=== PATIENT | female | born 1970 | race Caucasian/White ===

== ENCOUNTER 2017-02-10 10:47 | Observation (INO) | payer OTHER ==
[2017-02-10] MEDS ORDERED: LORazepam 2 MG/ML SYRINGE IV PRN ×2 (11:09)
[2017-02-10] MEDS ORDERED: NALOXONE 0.4 MG/ML 1 ML VIAL IV PRN (11:15)
[2017-02-10] MEDS ORDERED: ONDANSETRON 4 MG/2 ML VIAL IVP PRN (11:15)
--- NOTE | 2017-02-10 11:15 | ED ---
General Adult HPI - General Chief complaint: Alcohol Stated complaint: SENT BY FOR DETOX Time Seen by Provider: 02/10/17 11:00 Source: patient, RN notes reviewed Mode of arrival: ambulatory Limitations: no limitations - History of Present Illness Initial comments: Chief complaint history of present illness a 47-year-old female who is coming emergency room because of chronic alcoholism. Patient reports when she stops drinking she has alcohol withdrawal problems. She's never had a seizure though. Patient drank some beer this morning. - Related Data Home Medications Medication Instructions Recorded Confirmed Atenolol/Chlorthalidone 1 tab PO DAILY 07/03/16 02/10/17 [Atenolol-Chlorthalidone 50-25] diphenhydrAMINE [Benadryl] 25 mg PO HS PRN 07/03/16 02/10/17 Allergies Allergy/AdvReac Type Severity Reaction Status Date / Time Sulfa (Sulfonamide Allergy Rash/Hives Verified 02/10/17 10:58 Antibiotics) Review of Systems ROS Statement: Those systems with pertinent positive or pertinent negative responses have been documented in the HPI. Review of systems patient denies any headache or visual acuity changes no neck pain no chest pain or shortness of breath no GI/ proms. The patient did drink some beer this morning. No neuro deficits. Past medical problems significant for hyperlipidemia and hypertension. Patient' s surgeries include tubal ligation and uterine ablation and NovaSure insertion. Family history mother on several uncles are all alcoholics. Patient's ALLERGIES include sulfa. She is a smoker strongly encouraged to stop. ROS Other: All systems not noted in ROS Statement are negative. Past Medical History Past Medical History: Hyperlipidemia, Hypertension History of Any Multi-Drug Resistant Organisms: None Reported Past Surgical History: Tubal Ligation, Uterine Ablation Additional Past Surgical History / Comment(s): gabriel nguyễn Past Psychological History: No Psychological Hx Reported Smoking Status: Never smoker Past Alcohol Use History: Abuse, Daily Past Drug Use History: None Reported General Exam - General Exam Comments Initial Comments: General: The patient is awake and alert, upset and distressed because of her alcohol dependency. Patient states when she stops drinking she does have withdrawal symptoms. Patient denies suicidal or homicidal thoughts. Vital signs temp 97.8 pulse 81 respiratory rate 18 pulse ox 99% room air blood pressure 164/103. Elevated systolic diastolic noted. The patient will be treated for alcohol withdrawal. Eye: Pupils are equal, round and reactive to light, extra-ocular movements are intact ; there is normal conjunctiva bilaterally. No signs of icterus. Ears, nose, mouth and throat: There are moist mucous membranes and no oral lesions. Neck: The neck is supple, there is no tenderness , no anterior cervical lymphadenopathy. Rapidly clearing neck rash, dermatitis nonspecific. Cardiovascular: There is a regular rate and rhythm. No murmur, rub or gallop is appreciated. Respiratory: Lungs are clear to auscultation, respirations are non-labored, breath sounds are equal. No wheezes, stridor, rales, or rhonchi. Gastrointestinal: Soft, non-distended, non-tender abdomen without masses or organomegaly noted. There is no rebound or guarding present. No CVA tenderness. Bowel sounds are unremarkable. Back: There is no tenderness to palpation in the midline. There is no obvious deformity. Rapidly clearing rash on the right side of her neck. Musculoskeletal: Normal ROM, no tenderness, There is no pedal edema. There is no calf tenderness or swelling. Sensation intact. Pulses equal bilaterally 2+. Neurological: CN II-XII intact, There are no obvious motor or sensory deficits. Coordination appears grossly intact. Speech is normal. No neuro deficits no focal or lateralizing findings. Skin: Skin is warm and dry and no rashes or lesions are noted. Psychiatric: Cooperative, appropriate mood & affect, normal judgment. Patient states alcoholic and wants help getting off the alcohol. Has alcohol withdrawal symptoms when she stops drinking. Limitations: no limitations Course Vital Signs 02/10/17 10:53 Temperature 97.8 F Pulse Rate 81 Respiratory 18 Rate Blood Pressure 164/103 O2 Sat by Pulse 99 Oximetry Medical Decision Making - Medical Decision Making The patient be started on banana bag and Ativan protocol for alcohol withdrawal. Laboratory drawn. Patient be admitted to Dr. Jamee Sosa's service. Disposition Clinical Impression: Alcohol withdrawal syndrome Disposition: ADMITTED IP TO THIS HOSP Condition: Serious
[2017-02-10] MEDS ORDERED: cloNIDine HCL 0.1 MG TAB PO STA (11:20)
[2017-02-10 11:49] LABS: Basophils # (A) 0.1 k/uL (0-0.2); Basophils % (A) 1 %; CH 35.3; Eosinophils # (A) 0.1 k/uL (0-0.7); Eosinophils % (A) 2 %; HCT 47.2 % (34.0-46.0); HDW 2.38; HGB 16.2 gm/dL (11.4-16.0); Luc # (Auto) 0.25; Luc % (Auto) 3; Lymphocytes # (A) 1.8 k/uL (1.0-4.8); Lymphocytes % (A) 25 %; MCH 34.7 pg (25.0-35.0); MCHC 34.3 g/dL (31.0-37.0); MCV 101.1 fL (80.0-100.0); Macrocytosis Slight; Mean Platelet Volume 6.2; Monocytes # (A) 0.3 k/uL (0-1.0); Monocytes % (A) 5 %; Neutrophils # (A) 4.8 k/uL (1.3-7.7); Neutrophils % (A) 65 %; RBC 4.67 m/uL (3.80-5.40); RDW 14.2 % (11.5-15.5); WBC 7.4 k/uL (3.8-10.6); WBC (Perox) 7.32
[2017-02-10 11:59] LABS: ALT 150 U/L (9-52); AST 240 U/L (14-36); Alkaline Phosphatase 139 U/L (38-126); Anion Gap 13 mmol/L; Blood Urea Nitrogen 14 mg/dL (7-17); Carbon Dioxide 27 mmol/L (22-30); Chloride 97 mmol/L (98-107); Glucose 96 mg/dL (74-99); Magnesium 1.8 mg/dL (1.6-2.3); Non-African American GFR(MDRD) >60 (>60 ml/min/1.73 sqM); Phosphorous 2.6 mg/dL (2.5-4.5); Potassium 3.2 mmol/L (3.5-5.1); Sodium 137 mmol/L (137-145); Total Protein 7.2 g/dL (6.3-8.2)
[2017-02-10] MEDS ORDERED: Potassium Replacement Protocol 1 EACH MISC MISCELLANE PRN (14:28)
[2017-02-10] MEDS: POTASSIUM CHLORIDE 10 MEQ, LIDOCAINE 2% INJ 10 MG in SODIUM CHLORIDE 0.9% 100 ML IV SCH ×2 (15:12→16:37)
[2017-02-10] MEDS: LORazepam 2 MG/ML SYRINGE IV PRN ×2 (17:09→20:52)
[2017-02-10] MEDS: ATENOLOL 50 MG TAB PO SCH (20:49)
[2017-02-10] MEDS: CHLORTHALIDONE 25 MG TAB PO SCH (20:49)
[2017-02-10] MEDS: FAMOTIDINE 20 MG TAB PO SCH (20:50)
[2017-02-11 00:36] VITALS: RESP 16
[2017-02-11] MEDS: LORazepam 2 MG/ML SYRINGE IV PRN ×4 (00:58→20:32)
[2017-02-11] MEDS ORDERED: CHLORTHALIDONE 25 MG TAB PO SCH (09:00)
[2017-02-11] MEDS ORDERED: ATENOLOL 50 MG TAB PO SCH (09:00)
--- NOTE | 2017-02-11 09:28 | P.PN ---
Subjective Principal diagnosis: 47-year-old female who presented on the day of admission to the emergency room on the february. Patient presented for concern of alcohol withdrawal in a patient who has a history of chronic alcoholism. Patient stated that she did drink beer in the morning of the admission to the emergency room. Patient states whenever she stops drinking alcohol she has withdraw symptoms patient states that she's been sent to the emergency room to undergo detox per her family doctor. Patients being seen this morning is agitated but awake alert. cooperative. There's been no suicide ideation. Patient does verbalize she no she needs to stop drinking alcohol Patient is currently on CIAZ protocol using Ativan for impending DTs. Objective - Vital Signs Vital signs: Vital Signs Temp 97.3 F L 02/11/17 07:00 Pulse 59 L 02/11/17 07:00 Resp 16 02/11/17 07:00 BP 105/67 02/11/17 07:00 Pulse Ox 97 02/11/17 07:00 Intake & Output 02/10/17 02/11/17 02/11/17 18:59 06:59 18:59 Other: # Voids 1 # Bowel Movements 0 # Emeses 0 - Exam GENERAL APPEARANCE: 47-year-old patient is alert, oriented 3, in no acute distress. Resting in bed VITAL SIGNS: Reviewed HEENT: Head is normocephalic and atraumatic. Pupils are equal and reactive. The nares are patent. Oropharynx is clear without lesions. NECK: Supple without lymphadenopathy. Traches midline. HEART: S1, S2. Regular rate and rhythm. No murmur denying chest pain LUNGS: No crackles or wheezes are heard. On room air ABDOMEN: Soft, nontender, nondistended with good bowel sounds. No peritoneal signs. No palpable organomegaly or masses. EXTREMITIES: Normal skin color and turgor. No cyanosis, rash, ulceration, clubbing or edema. Radial pedal pulses are 2/4 bilaterally. NEUROLOGICAL: No focal deficits. Strength and sensation are grossly intact. - Labs CBC & Chem 7: 02/10/17 11:25 02/10/17 11:25 Labs: Abnormal Lab Results - Last 24 Hours (Table) 02/10/17 02/10/17 Range/Units 11:25 11:25 Hgb 16.2 H (11.4-16.0) gm/dL Hct 47.2 H (34.0-46.0) % MCV 101.1 H (80.0-100.0) fL Potassium 3.2 L (3.5-5.1) mmol/L Chloride 97 L (98-107) mmol/L AST 240 H (14-36) U/L ALT 150 H (9-52) U/L Alkaline Phosphatase 139 H (38-126) U/L Assessment and Plan Plan: Impression History of chronic alcoholism Present on admission acute alcoholism with impending DVT due to call withdrawal Elevated liver enzymes suspect due to chronic alcoholism History of hypertension Present on admission hypertension urgency Present on admission hypokalemia Plan Repeat labs this morning Continue with the use of Ativan protocol for alcohol impending withdrawal symptoms with impending DTs muffle worker to provide information for support for alcohol cessation Present on admission elevated liver enzymes suspect due to alcoholism IV hydration as ordered DVT and GI prophylaxis Librium 25 every 6 hours when necessary Further recommendations pending The above dictated assessment and findings were discussed with dr mccauley . Impression and the plan of care have been dictated as directed. June Avendano nurse practitioner acting as a scribe for dr mccauley
[2017-02-11] MEDS: chlordiazePOXIDE 25 MG CAP PO PRN ×2 (09:40→20:39)
[2017-02-11] MEDS: FAMOTIDINE 20 MG TAB PO SCH ×2 (09:41→20:32)
[2017-02-11 10:24] LABS: ALT 101 U/L (9-52); AST 120 U/L (14-36); Alkaline Phosphatase 109 U/L (38-126); Amylase 52 U/L (30-110); Anion Gap 9 mmol/L; Blood Urea Nitrogen 9 mg/dL (7-17); Calcium 9.1 mg/dL (8.4-10.2); Carbon Dioxide 27 mmol/L (22-30); Chloride 98 mmol/L (98-107); Glucose 117 mg/dL (74-99); Non-African American GFR(MDRD) >60 (>60 ml/min/1.73 sqM); Potassium 3.1 mmol/L (3.5-5.1); Sodium 134 mmol/L (137-145); Total Bilirubin 1.4 mg/dL (0.2-1.3); Total Protein 6.4 g/dL (6.3-8.2)
--- NOTE | 2017-02-11 16:27 | HP ---
DATE OF ADMISSION: 02/09/2017 CHIEF COMPLAINT: 1. Acute alcohol intoxication. 2. Chronic alcoholism. 3. Impending delirium tremens. HISTORY OF PRESENT ILLNESS: This 47-year-old white female who has been drinking very heavily. She was in the office recently seeking help and was told that the best and safest thing was to admit her for acute detox and she came to the emergency room. REVIEW OF SYSTEMS: She has had no seizures, no blackouts, difficulty with vision or hearing, chest pain, cough, hemoptysis, hypertension, and palpitations, heart disease, abdominal pain, nausea, vomiting, hematemesis, melena, hematochezia, colitis, diverticulosis, diverticulitis, jaundice, hepatitis, history of cirrhosis, etc. She has had no hematuria, frequency, urgency, renal disease, diabetes, etc. Past medical history, family history and personal and social history are all otherwise unremarkable and noncontributory or unchanged. PHYSICAL EXAMINATION: Blood pressure is 145/90 with a pulse of 96, respirations 35 and she is afebrile. GENERAL: She appeared to be in no acute distress. SKIN: Skin color is normal. Skin is warm and dry. Lymph nodes are not enlarged. Head, ears, eyes, nose, mouth, and throat were normal. NECK: Neck veins not distended. Thyroid is not enlarged. Chest is clear. Cardiac exam is normal. The abdomen is soft, nontender and there are no masses or visceromegaly. EXTREMITIES: Normal. NEUROLOGICAL: Intact. She was admitted to the hospital with diagnoses: 1. Chronic alcoholism. 2. Alcohol intoxication. 3. Impending delirium tremens. PLAN: 1. Bedrest. 2. IV fluids. 3. [facility] protocol.
--- NOTE | 2017-02-11 16:37 | PN ---
DATE OF SERVICE: 02/11/2017 CHIEF COMPLAINT: Alcoholism and DTs. HISTORY OF PRESENT ILLNESS: This lady is doing fairly well, but she is having trouble with vision and she is feeling shaky. PHYSICAL EXAMINATION: Her vital signs are normal. The chest is clear. CARDIAC: Normal. ABDOMEN: Soft, nontender. Eye exam demonstrates a little bit of nystagmus. IMPRESSION: 1. Acute alcohol intoxication. 2. Chronic alcoholism. 3. Delirium tremens. PLAN: Continue on current program and add Librium 25 mg q.6 p.r.n.
[2017-02-11] MEDS: NICOTINE 21MG/24HR PATCH TRANSDERM SCH (17:59)
[2017-02-11] MEDS: CHLORTHALIDONE 25 MG TAB PO SCH (20:32)
[2017-02-11] MEDS: ATENOLOL 50 MG TAB PO SCH (20:32)
[2017-02-12] MEDS: LORazepam 2 MG/ML SYRINGE IV PRN ×2 (01:43→08:07)
[2017-02-12 07:55] VITALS: BP 108/70; PULSE 69; TEMP 97.6
[2017-02-12] MEDS: NICOTINE 21MG/24HR PATCH TRANSDERM SCH (08:06)
[2017-02-12] MEDS: FAMOTIDINE 20 MG TAB PO SCH (08:06)
--- NOTE | 2017-02-12 08:44 | P.DS ---
Providers Date of admission: 02/10/17 11:15 Expected date of discharge: 02/12/17 Attending physician: Henok Mccauley Primary care physician: Henok Mccauley [facility] Course: 47-year-old female who presented on the day of admission to the emergency room on the february. Patient presented for concern of alcohol withdrawal in a patient who has a history of chronic alcoholism. Patient stated that she did drink beer in the morning of the admission to the emergency room. Patient states whenever she stops drinking alcohol she has withdraw symptoms patient states that she's been sent to the emergency room to undergo detox per her family doctor. There's been no suicide ideation. Patient does verbalize she knows she needs to stop drinking alcohol Patient is currently on CIWA protocol using Ativan for impending DTs. Patient was seen by social media assistant and was provided information on substance abuse treatment. Patient denied any immediate needs or concerns. 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 On the day of discharge patient felt appropriate to proceed. There was no evidence of active DTs patient was afebrile heart rate was in the 80s on room air sats are 97% blood pressure 108/70 the AST was down to 120 and the ALT 101 alk phos 109. Amylase and lipase were not elevated amylase 52 lipase 70 drug screen was negative Impression discharge History of chronic alcoholism drinks vodka daily Present on admission acute alcoholism with impending DVT due to call withdrawal Elevated liver enzymes suspect due to chronic alcoholism History of hypertension Present on admission hypertension urgency Present on admission hypokalemia corrected The above dictated assessment and findings were discussed with dr mccauley Impression and the plan of care have been dictated as directed. June Avendano nurse practitioner acting as a scribe for dr mccauley Patient Condition at Discharge: Serious Plan - Discharge Summary New Discharge Prescriptions: Nicotine 21Mg/24Hr Patch [Habitrol] 1 patch TRANSDERM DAILY #30 patch Potassium Chloride ER [K-Dur 20] 20 meq PO BID #14 tab Discharge Medication List Atenolol/Chlorthalidone [Atenolol-Chlorthalidone 50-25] 1 tab PO HS 07/03/16 [ History] diphenhydrAMINE [Benadryl] 25 mg PO HS PRN 07/03/16 [History] Nicotine 21Mg/24Hr Patch [Habitrol] 1 patch TRANSDERM DAILY #30 patch 02/12/17 [ Rx] Potassium Chloride ER [K-Dur 20] 20 meq PO BID #14 tab 02/12/17 [Rx] Follow up Appointment(s)/Referral(s): Henok Mccauley MD [Primary Care Provider] - 1-2 days Discharge Disposition: HOME SELF-CARE
[2017-02-12] MEDS: POTASSIUM CHLORIDE ER 20 MEQ TAB.ER PO SCH ×2 (09:08→10:40)
[2017-02-12 10:19] LABS: ALT 72 U/L (9-52); AST 73 U/L (14-36); Alkaline Phosphatase 92 U/L (38-126); Anion Gap 10 mmol/L; Blood Urea Nitrogen 12 mg/dL (7-17); Calcium 9.4 mg/dL (8.4-10.2); Carbon Dioxide 29 mmol/L (22-30); Chloride 97 mmol/L (98-107); Glucose 129 mg/dL (74-99); Non-African American GFR(MDRD) >60 (>60 ml/min/1.73 sqM); Sodium 136 mmol/L (137-145); Total Bilirubin 1.3 mg/dL (0.2-1.3); Total Protein 6.4 g/dL (6.3-8.2)
[2017-02-12 10:35] LABS: Potassium 3.2 mmol/L (3.5-5.1)
[2017-02-12] MEDS ORDERED: POTASSIUM CHLORIDE ER 20 MEQ TAB.ER PO STA (11:21)
--- NOTE | 2017-02-13 18:54 | PN ---
DATE OF SERVICE: 02/12/2017 CHIEF COMPLAINT: Alcoholism and delirium tremens. HISTORY OF PRESENT ILLNESS: This is doing very well. She is not in delirium tremens. She would like to go home. PHYSICAL EXAMINATION: Color is good and chest is clear. Cardiac exam is normal. ABDOMEN: Soft, nontender. IMPRESSION: 1. Alcoholism. 2. Cirrhosis. 3. Delirium tremens-resolving. PLAN: Probably home today and this will be arranged by the nurse practitioner.
== END 2017-02-12 15:18 | disposition home or self-care (01) ==
LOC: EC 10:47 → 4MS4W 11:15
PROVIDERS: ADMIT Family Medicine; ATTEND Family Medicine
DX: F10.239 Alcohol dependence with withdrawal, unspecified (principal)
CPT/HCPCS: 82075; 36415; 80053 ×3; 82150; 83690; 83735; 84100; 84132; 85025; 85610; 80306; 99285; G0378 ×3; S4990 ×2; J2001; J2060 ×3; J2405; J3480; 96365; 96366; 96375; 96376

== ENCOUNTER → 2017-12-09 | Outpatient (CLI) | payer OTHER ==
--- NOTE | 2017-12-09 10:52 | US ---
EXAMINATION TYPE: US transvaginal DATE OF EXAM: 12/09/2017 COMPARISON: NONE CLINICAL HISTORY: R10.2 Pelvic Pain. Novasure procedure 2014 TECHNIQUE: Transvaginal (TV) Date of LMP: 12/07/2017 EXAM MEASUREMENTS: Uterus: 8.1 x 5.0 x 4.9 cm Endometrial Stripe: 0.3 cm Right Ovary: 1.9 x 1.5 x 1.5 cm Left Ovary: 2.1 x 0.8 x 1.7 cm 1. Uterus: Anteverted Nabothian cyst visualized in cervix. Heterogeneous echotexture. Hypoechoic a harika visualized measuring 2.1 x 1.8 x 1.9 cm, possible fibroid 2. Endometrium: wnl 3. Right Ovary: Cystic area visualized measuring 1.4 x 1.0 x 1.1 cm 4. Left Ovary: wnl 5. Bilateral Adnexa: wnl 6. Posterior cul-de-sac: wnl IMPRESSION: 1. Uterine fibroid posterior fundus. 2. Simple appearing right ovarian cyst. Follow-up is recommended following the next normal menstrual period.
--- NOTE | 2017-12-10 08:28 | MM ---
Reason for exam: screening (asymptomatic). Last mammogram was performed 4 years and 7 months ago. Physical Findings: A clinical breast exam by your physician is recommended on an annual basis and results should be correlated with mammographic findings. MG Screening Mammo w CAD Bilateral CC and MLO view(s) were taken. Prior study comparison: May 05, 2013, bilateral digital screening mammo w/CAD. The breast tissue is heterogeneously dense. This may lower the sensitivity of mammography. Developing asymmetry middle left upper outer quadrant. ASSESSMENT: Incomplete: need additional imaging evaluation, BI-RAD 0 RECOMMENDATION: Special view mammogram of the left breast. If lesion persists on supplemental views, image directed ultrasound is recommended. [facility] will attempt to contact patient to return for supplemental views and ultrasound if indicated.
== END | disposition home or self-care (01) ==
LOC: RADMAMWWP 09:25
PROVIDERS: ATTEND Obstetrics & Gynecology
DX: Z12.31 Encounter for screening mammogram for malignant neoplasm of breast (principal); D25.9 Leiomyoma of uterus, unspecified; N83.291 Other ovarian cyst, right side
CPT/HCPCS: 76830; 77067

== ENCOUNTER → 2017-12-11 | Outpatient (CLI) | payer OTHER ==
--- NOTE | 2017-12-12 08:37 | MM ---
Reason for exam: additional evaluation requested from abnormal screening. Last mammogram was performed less than 1 month ago. Physical Findings: Nurse did not find any significant physical abnormalities on exam. MG Work Up Mamm w CAD LT Spot compression CC, spot compression MLO, and LM view(s) were taken of the left breast. Prior study comparison: December 09, 2017, bilateral MG screening mammo w CAD. May 05, 2013, bilateral digital screening mammo w/CAD. The breast tissue is heterogeneously dense. This may lower the sensitivity of mammography. Two nodules at 4 o'clock and 5 o'clock measuring up to 9mm. The 4 o'clock nodule appears circumscribed. Ultrasound recommended. These results were verbally communicated with the patient and result sheet given to the patient on 12/11/17. ASSESSMENT: Incomplete: need additional imaging evaluation, BI-RAD 0 RECOMMENDATION: Ultrasound of the left breast. (3-6 o'clock)
--- NOTE | 2017-12-12 08:41 | USB ---
Reason for exam: additional evaluation requested from abnormal screening. US Breast Workup Limited LT Left breast ultrasound demonstrates a 6 x 4 x 6mm lobular, solid, hypoechoic lesion at 3 o'clock for which a biopsy is recommended, a 6 x 3 x 6mm lobular, solid, hypoechoic lesion at 4 o'clock that may correspond to the second mammographic finding, possible collapsed cyst for which a 6 month follow up is recommended and a 4 x 2 x 4mm oval, lobular, mixed lesion too small to characterize at the posterior nipple for which a 6 month follow up is recommended. These results were verbally communicated with the patient and result sheet given to the patient on 12/11/17. ASSESSMENT: Suspicious, BI-RAD 4 RECOMMENDATION: Surgical consultation and ultrasound core biopsy of the left breast. Called Dr. Dexter with mammographic findings and has scheduled an appointment for the patient for 12/12/17 at 11:[address] Khan. PRELIMINARY REPORT CALLED AND FAXED TO DR. KHAN ON 12/12/17.
== END | disposition home or self-care (01) ==
LOC: RADMAMWWP 14:19
PROVIDERS: ATTEND Obstetrics & Gynecology
DX: R92.8 Other abnormal and inconclusive findings on diagnostic imaging of breast (principal)
CPT/HCPCS: 77065

== ENCOUNTER 2018-01-13 09:52 | Emergency (ER) | payer OTHER ==
[2018-01-13 10:02] VITALS: TEMP 98.2
[2018-01-13] MEDS ORDERED: SODIUM CHLORIDE 0.9% 1,000 ML IV STA (10:27)
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
[2018-01-13 11:07] LABS: Basophils # (A) 0.1 k/uL (0-0.2); Basophils % (A) 1 %; Eosinophils # (A) 0.7 k/uL (0-0.7); Eosinophils % (A) 10 %; HCT 44.5 % (34.0-46.0); HGB 14.3 gm/dL (11.4-16.0); Lymphocytes # (A) 1.5 k/uL (1.0-4.8); Lymphocytes % (A) 22 %; MCH 30.7 pg (25.0-35.0); MCHC 32.2 g/dL (31.0-37.0); MCV 95.5 fL (80.0-100.0); Mean Platelet Volume 7.3; Monocytes # (A) 0.3 k/uL (0-1.0); Monocytes % (A) 5 %; Neutrophils % (A) 60 %; Platelet Count 250 k/uL (150-450); RBC 4.65 m/uL (3.80-5.40); RDW 12.6 % (11.5-15.5); WBC 6.6 k/uL (3.8-10.6)
[2018-01-13 11:13] LABS: Appearance,Urine Cloudy (Clear); Bacteria,Urine Rare /hpf; Bilirubin,Urine Negative (Negative); Blood,Urine Moderate (Negative); Color,Urine Yellow; Glucose,Urine (UA) Negative (Negative); Ketones,Urine Negative (Negative); Leukocyte Esterase,Urine Large (Negative); Mucus,Urine Moderate /hpf; PH, Urine 6.5 (5.0-8.0); Protein,Urine Trace (Negative); RBC,Urine 3 /hpf (0-5); Specific Gravity,Urine 1.018 (1.001-1.035); Squamous Epithelial Cell,Urine 21 /hpf (0-4); Urobilinogen,Urine <2.0 mg/dL (<2.0); WBC,Urine 5 /hpf (0-5)
--- NOTE | 2018-01-13 11:16 | XR ---
EXAMINATION TYPE: XR cervical spine comp DATE OF EXAM: 01/13/2018 TECHNIQUE: Frontal, lateral, oblique, swimmers, and open mouth view of the cervical spine are obtaine d. HISTORY: Pain neck pain with tingling into right hand. COMPARISON: None FINDINGS: The cervical spine is visualized in its entirety from C1 thru the top of T1 level, there i s reversal of normal cervical curvature without evidence of acute fracture or dislocation. The pre-v ertebral soft tissue appears within normal limits. The C1-C2 articulation is within normal limits on the open mouth view. Vertebral body heights are maintained. There is mild to moderate disc space narrowing with moderate to severe anterior spurring C5-C6 and C6-C7 levels. Right-sided neural foraminal narrowing C3-C4 and C4-C5 levels is seen on oblique images due to marginal spurring. Overlying soft tissue is unremarkabl e. IMPRESSION: Loss of normal cervical curvature with fairly moderate degenerative changes mid to lower cervical spine.
[2018-01-13] MEDS ORDERED: RX INFO: IV CONTRAST WAS GIVEN 1 EACH MISC MISCELLANE PRN (11:23)
[2018-01-13 11:27] LABS: ALT 108 U/L (9-52); AST 94 U/L (14-36); Albumin 4.4 g/dL (3.5-5.0); Alkaline Phosphatase 69 U/L (38-126); Anion Gap 13 mmol/L; Blood Urea Nitrogen 17 mg/dL (7-17); Calcium 10.1 mg/dL (8.4-10.2); Carbon Dioxide 31 mmol/L (22-30); Chloride 98 mmol/L (98-107); Glucose 114 mg/dL (74-99); Potassium 3.3 mmol/L (3.5-5.1); Sodium 142 mmol/L (137-145); Total Bilirubin 0.9 mg/dL (0.2-1.3); Total Protein 7.2 g/dL (6.3-8.2)
--- NOTE | 2018-01-13 12:23 | CT ---
EXAMINATION TYPE: CT abdomen pelvis w con DATE OF EXAM: 01/13/2018 HISTORY: Patient complains of passing vaginal blood clots and pelvic pain post hysterectomy [address] DLP: 609.6mGycm Automated Exposure Control for Dose Reduction was Utilized. CONTRAST: CT scan of the abdomen and pelvis is performed with IV Contrast, patient injected with 100 mL of Omni paque 300. COMPARISON: None. FINDINGS: LUNG BASES: No significant abnormality is appreciated. LIVER/GB: Liver is unremarkable without intrahepatic biliary ductal dilatation or focal masses. Gallb ladder is also unremarkable without any radiopaque calculi PANCREAS: No significant abnormality is seen. SPLEEN: No splenomegaly. ADRENALS: No thickening or nodularity. KIDNEYS: Kidneys enhance and excrete symmetrically. No hydronephrosis. BOWEL: There is diffuse thickening of the gastric fundus and body, which most commonly relate to inco mplete distention or gastritis. UTERUS/ADNEXA: An elongated fluid collection in the hysterectomy surgical bed may represent postopera tive seroma, resolving hematoma or abscess. Mild surrounding inflammatory fat stranding could be seco ndary to infectious process or postoperative in nature. This fluid collection measures approximately 5.6 x 1.1 x 1.9 cm in transverse by anterior posterior by craniocaudal dimension on series 4 image 58 and series 10 image 47. The adjacent urinary bladder wall is circumferentially thickened on sagittal reformats, however this could also partially relate to incomplete distention. LYMPH NODES: No greater than 1cm abdominal or pelvic lymph nodes are appreciated. OSSEOUS STRUCTURES: Minimal multilevel degenerative changes of the thoracolumbar spine are noted. Mil d degenerative changes of the right sacroiliac joint are also seen. OTHER: Diastases recti is seen with fat stranding in the subcutaneous tissues around the umbilicus, l ikely from prior surgical intervention. IMPRESSION: 1. Pelvic fluid collection in the hysterectomy surgical bed that could relate to postoperative seroma , resolving hematoma, or abscess. Correlate with white blood cell count and fever. Mild inflammatory fat stranding could be secondary to an infectious process or be postoperative. 2. Circumferential urinary bladder wall thickening may relate to incomplete distention or adjacent in flammatory change/cystitis. 3. Circumferential gastric wall thickening most commonly relates to gastritis or incomplete distentio n.
[2018-01-13] MEDS ORDERED: POTASSIUM CHLORIDE ER 20 MEQ TAB.ER PO STA (13:16)
[2018-01-13 13:40] VITALS: BP 113/65; PULSE 70; RESP 16
== END 2018-01-13 13:40 | disposition home or self-care (01) ==
LOC: EC 09:52
DX: N99.842 Postprocedural seroma of a genitourinary system organ or structure following a genitourinary system procedure (principal); N93.9 Abnormal uterine and vaginal bleeding, unspecified; M50.30 Other cervical disc degeneration, unspecified cervical region; I10 Essential (primary) hypertension; Z90.710 Acquired absence of both cervix and uterus; Z87.891 Personal history of nicotine dependence; Z79.899 Other long term (current) drug therapy; Z88.2 Allergy status to sulfonamides
CPT/HCPCS: 99284; 96360; 96361 ×2; 36415; 86900; 86901; 80053; 85025; 86850; 81001; 87086; 72050; 74177; Q9967

== ENCOUNTER 2018-05-19 17:17 | Inpatient (IN) | payer OTHER ==
[2018-05-19] MEDS ORDERED: LORazepam 2 MG/ML INJ IV PRN (19:52)
[2018-05-19] MEDS: THIAMINE 100 MG TAB PO SCH (20:19)
[2018-05-19] MEDS: DEXTROSE 5%-0.45% NACL 1,000 ML IV SCH (21:00)
[2018-05-19] MEDS: PANTOPRAZOLE 40 MG TABLET PO SCH (21:00)
[2018-05-19 23:20] VITALS: RESP 16
[2018-05-20] MEDS: LORazepam 2 MG/ML INJ IV PRN ×3 (03:13→17:32)
[2018-05-20] MEDS: DEXTROSE 5%-0.45% NACL 1,000 ML IV SCH ×4 (03:13→22:55)
[2018-05-20] MEDS: THIAMINE 100 MG TAB PO SCH ×2 (11:06→15:24)
[2018-05-20 11:28] LABS: Basophils % (A) 1 %; Eosinophils # (A) 0.2 k/uL (0-0.7); Eosinophils % (A) 3 %; HCT 41.4 % (34.0-46.0); HGB 13.6 gm/dL (11.4-16.0); Lymphocytes # (A) 1.4 k/uL (1.0-4.8); Lymphocytes % (A) 21 %; MCH 30.6 pg (25.0-35.0); MCHC 32.9 g/dL (31.0-37.0); Mean Platelet Volume 6.9; Monocytes # (A) 0.3 k/uL (0-1.0); Monocytes % (A) 5 %; Neutrophils # (A) 4.6 k/uL (1.3-7.7); Neutrophils % (A) 70 %; Platelet Count 239 k/uL (150-450); RBC 4.45 m/uL (3.80-5.40); RDW 13.9 % (11.5-15.5); WBC 6.5 k/uL (3.8-10.6)
[2018-05-20 11:46] LABS: ALT 94 U/L (9-52); AST 106 U/L (14-36); Albumin 3.9 g/dL (3.5-5.0); Alkaline Phosphatase 79 U/L (38-126); Amylase 52 U/L (30-110); Anion Gap 10 mmol/L; Blood Urea Nitrogen 17 mg/dL (7-17); Calcium 9.4 mg/dL (8.4-10.2); Carbon Dioxide 33 mmol/L (22-30); Chloride 97 mmol/L (98-107); Glucose 119 mg/dL (74-99); Lipase 65 U/L (23-300); Potassium 3.4 mmol/L (3.5-5.1); Sodium 140 mmol/L (137-145); Total Bilirubin 1.5 mg/dL (0.2-1.3); Total Protein 6.2 g/dL (6.3-8.2)
--- NOTE | 2018-05-20 15:13 | HP ---
HISTORY AND PHYSICAL CHIEF COMPLAINT: Acute alcohol intoxication and impending DTs. HISTORY OF PRESENT ILLNESS: This is another admission for this 48-year-old white female chronic alcoholic. She came in on the day of admission, requesting help. She has been working as a clinical project manager for years. She has a chronic and severe alcohol problem and she and her boyfriend decided that she must get out of the environment, which she did. However, she continues to drink about a 5th a day and came to the office requesting help. REVIEW OF SYSTEMS: She denies diplopia, blackouts, seizures, shortness of breath, chest pain, palpitations, nausea, vomiting, hematemesis, melena, hematochezia, jaundice, hematuria, frequency, urgency, diabetes, etc. Past medical history, family history and personal and social history demonstrates that she is ALLERGIC TO SULFA. She takes Tenoretic 50-25 once a day and she has been on Xanax in the past. The remainder of her history is unremarkable. She does not smoke. PHYSICAL EXAM: Blood pressure 162/92 with a pulse of 120, respirations 20 and she is afebrile. In general she appeared to be well developed, well nourished, and somewhat unkempt. Skin color is normal. Skin is warm, dry. Lymph nodes not enlarged. Head, ears, eyes, nose, mouth, and throat were normal. Neck veins not distended. Thyroid is not enlarged. Chest is clear. Cardiac exam is normal. Abdomen is soft, nontender. Bowel sounds present. Extremities normal. Neurologic is intact. She is also somewhat tremulous and agitated. IMPRESSION: 1. Impending delirium tremens. 2. Acute alcohol intoxication. 3. Chronic alcoholism. 4. Hypertension. 5. Alcoholic hepatitis. PLAN: Detox. MMODL / IJN: [id number] /
--- NOTE | 2018-05-20 15:19 | PN ---
PROGRESS NOTE DATE OF SERVICE: 05/20/2018 CHIEF COMPLAINT: DTs. HISTORY OF PRESENT ILLNESS: This lady is doing fairly well, but she is very anxious and a little bit tremulous. She has had no nausea, vomiting, hallucinations, etc. PHYSICAL EXAM: Cardiac exam demonstrates mild tachycardia and the abdomen is soft and a little bit tender over the epigastrium. Chest is clear. IMPRESSION: 1. Delirium tremens. 2. Chronic alcoholism. 3. Hypertension. PLAN: Continue with current program. MMKANUL / ELENA: [id number] /
[2018-05-20] MEDS ORDERED: NON-FORMULARY DRUG (Omeprazole [Omeprazole] 20 MG) PO SCH (21:00)
[2018-05-20] MEDS: CHLORTHALIDONE 25 MG TAB PO SCH (21:03)
[2018-05-20] MEDS: PANTOPRAZOLE 40 MG TABLET PO SCH (21:03)
[2018-05-20] MEDS: diphenhydrAMINE 50 MG CAP PO SCH (21:03)
[2018-05-20] MEDS: ATENOLOL 50 MG TAB PO SCH (21:04)
[2018-05-21] MEDS ORDERED: LORazepam 2 MG/ML INJ ONE ×2 (00:30)
[2018-05-21] MEDS: DEXTROSE 5%-0.45% NACL 1,000 ML IV SCH ×3 (06:25→18:55)
[2018-05-21] MEDS: LORazepam 2 MG/ML INJ IV PRN ×5 (08:21→21:37)
[2018-05-21] MEDS: THIAMINE 100 MG TAB PO SCH ×2 (11:01→17:43)
--- NOTE | 2018-05-21 13:26 | PN ---
PROGRESS NOTE CHIEF COMPLAINT: DTs. HISTORY OF PRESENT ILLNESS: This lady is not doing well. She is still very agitated and tremulous. She is slightly nauseated as well. PHYSICAL EXAM: Her vital signs are normal. Chest is clear. Cardiac exam is normal. The abdomen is soft and nontender. IMPRESSION: Delirium tremens. PLAN: Continue current management until she is stable enough to be discharged. MMODL / IJN: [id number] /
[2018-05-21 18:16] LABS: Anion Gap 8 mmol/L; Blood Urea Nitrogen 10 mg/dL (7-17); Calcium 9.3 mg/dL (8.4-10.2); Carbon Dioxide 27 mmol/L (22-30); Chloride 102 mmol/L (98-107); Glucose 116 mg/dL (74-99); Sodium 137 mmol/L (137-145)
[2018-05-21] MEDS: ATENOLOL 50 MG TAB PO SCH (21:32)
[2018-05-21] MEDS: PANTOPRAZOLE 40 MG TABLET PO SCH (21:33)
[2018-05-21] MEDS: CHLORTHALIDONE 25 MG TAB PO SCH (21:33)
[2018-05-21] MEDS: diphenhydrAMINE 50 MG CAP PO SCH (21:33)
[2018-05-22] MEDS: LORazepam 2 MG/ML INJ IV PRN ×2 (01:04→08:12)
[2018-05-22] MEDS: DEXTROSE 5%-0.45% NACL 1,000 ML IV SCH ×2 (01:04→08:30)
[2018-05-22 06:29] VITALS: BP 110/73; PULSE 52; TEMP 97.7
[2018-05-22] MEDS: THIAMINE 100 MG TAB PO SCH (11:12)
--- NOTE | 2018-05-23 00:39 | P.DS ---
Providers Date of admission: 05/19/18 19:09 Expected date of discharge: 05/23/18 Attending physician: Henok Florentino Primary care physician: Henok Florentino Hospital Course: Discharge diagnosis Acute alcohol withdrawal symptoms Impending DTs Hypertension Alcohol abuse Elevated liver enzymes/transaminitis with alcoholic hepatitis Hospital course Patient is a 48-year-old female with known history of alcohol abuse, hypertension was admitted to the hospital for acute alcohol withdrawal symptoms and. possible delirium tremens. Patient was continued on IV Ativan and IV fluids and multivitamins. Patient was agitated yesterday but is more common oriented. Tolerating oral diet and is stable to discharge home. Recommended to follow with primary care patient in 1-3 days. Alcohol abuse has been counseled extensively. Discharge physical examination was done and vitals reviewed. Vital Signs - 24 hr 05/22/18 05:50 Temperature 97.7 F Pulse Rate [ 52 L Pulse Oximetery ] Respiratory 16 Rate Blood Pressure 110/73 [Left Arm] O2 Sat by Pulse 98 Oximetry Patient Condition at Discharge: Fair Plan - Discharge Summary Discharge Rx Participant: No New Discharge Prescriptions: New Thiamine [Vitamin B-1] 100 mg PO BID@1200,1700 #14 tab Continue diphenhydrAMINE [Benadryl] 50 mg PO HS Atenolol/Chlorthalidone [Atenolol-Chlorthalidone 50-25] 1 tab PO HS Omeprazole 20 mg PO HS Ergocalciferol (Vitamin D2) [Vitamin D2] 50,000 unit PO Q30D Discharge Medication List Atenolol/Chlorthalidone [Atenolol-Chlorthalidone 50-25] 1 tab PO HS 07/03/16 [ History] diphenhydrAMINE [Benadryl] 50 mg PO HS 07/03/16 [History] Omeprazole 20 mg PO HS 01/13/18 [History] Ergocalciferol (Vitamin D2) [Vitamin D2] 50,000 unit PO Q30D 05/19/18 [History] Thiamine [Vitamin B-1] 100 mg PO BID@1200,1700 #14 tab 05/22/18 [Rx] Follow up Appointment(s)/Referral(s): Henok Florentino MD [Primary Care Provider] - 1 Week (office closed, client needs to make own appointment) Patient Instructions/Handouts: Abuse of Alcohol (DC) Discharge Disposition: HOME SELF-CARE
== END 2018-05-22 14:42 | disposition home or self-care (01) | DRG 897 ==
LOC: 4MS4W 19:09
PROVIDERS: ADMIT Family Medicine; ATTEND Family Medicine
DX: F10.231 Alcohol dependence with withdrawal delirium (principal); I10 Essential (primary) hypertension; K70.10 Alcoholic hepatitis without ascites; Z87.891 Personal history of nicotine dependence; Z71.41 Alcohol abuse counseling and surveillance of alcoholic; R74.0 Nonspecific elevation of levels of transaminase and lactic acid dehydrogenase [LDH]; Z88.2 Allergy status to sulfonamides
CPT/HCPCS: 80048; 80053; 82150; 83690; 85025

== ENCOUNTER 2018-10-24 11:39 | Emergency (ER) | payer OTHER ==
[2018-10-24] MEDS ORDERED: LORazepam 1 MG TAB PO STA ×2 (12:10→18:30)
[2018-10-24] MEDS ORDERED: LORazepam 2 MG/ML INJ IV PRN ×2 (12:11)
--- NOTE | 2018-10-24 12:54 | ED ---
General Adult HPI - General Source: patient, RN notes reviewed Mode of arrival: ambulatory Limitations: no limitations <Coy Mcgarry - Last Filed: 10/24/18 12:53> <Ankur Daugherty - Last Filed: 10/26/18 09:01> - General Chief complaint: Psychiatric Symptoms Stated complaint: Alcohol Withdrawls Time Seen by Provider: 10/24/18 11:47 - History of Present Illness Initial comments: Patient is a 48-year-old female who is a daily drinker, presenting to the emergency room today with chief complaint of suicidal ideation. She denies any specific plan of how she would hurt herself but she states that she would come up with something. Patient denies thoughts of hurting her mouth. States that she has been drinking. He admits that she's had withdrawal symptoms but never a seizure. Denies any other complaints or symptoms currently. Patient denies any recent fever, chills, shortness of breath, chest pain, back pain, abdominal pain, nausea or vomiting, numbness or tingling, headaches or visual changes, or any other complaints. (Coy Mcgarry) - Related Data Home Medications Medication Instructions Recorded Confirmed Atenolol/Chlorthalidone 1 tab PO DAILY 07/03/16 10/24/18 [Atenolol-Chlorthalidone 50-25] diphenhydrAMINE [Benadryl] 50 mg PO DAILY 07/03/16 10/24/18 Allergies Allergy/AdvReac Type Severity Reaction Status Date / Time Sulfa (Sulfonamide Allergy Rash/Hives Verified 10/24/18 12:15 Antibiotics) Review of Systems ROS Other: All systems not noted in ROS Statement are negative. <Coy Mcgarry - Last Filed: 10/24/18 12:53> ROS Other: All systems not noted in ROS Statement are negative. <Ankur Daugherty - Last Filed: 10/26/18 09:01> ROS Statement: Those systems with pertinent positive or pertinent negative responses have been documented in the HPI. Past Medical History Past Medical History: Hyperlipidemia, Hypertension History of Any Multi-Drug Resistant Organisms: None Reported Past Surgical History: Hysterectomy, Tubal Ligation, Uterine Ablation Additional Past Surgical History / Comment(s): nova delma Past Anesthesia/Blood Transfusion Reactions: No Reported Reaction Past Psychological History: Anxiety, Depression Smoking Status: Former smoker Past Alcohol Use History: Daily Past Drug Use History: None Reported - Past Family History Mother Family Medical History: No Reported History Father Family Medical History: Coronary Artery Disease (CAD) <Coy Mcgarry - Last Filed: 10/24/18 12:53> General Exam Limitations: no limitations <Coy Mcgarry - Last Filed: 10/24/18 12:53> <Ankur Daugherty - Last Filed: 10/26/18 09:01> - General Exam Comments Initial Comments: General: The patient is awake and alert, in no distress, and does not appear acutely ill. Eye: Pupils are equal, round and reactive to light, extra-ocular movements are intact. No nystagmus. There is normal conjunctiva bilaterally. No signs of icterus. Ears, nose, mouth and throat: There are moist mucous membranes and no oral lesions. Neck: The neck is supple, there is no tenderness or JVD. Cardiovascular: There is a regular rate and rhythm. No murmur, rub or gallop is appreciated. Respiratory: Lungs are clear to auscultation, respirations are non-labored, breath sounds are equal. No wheezes, stridor, rales, or rhonchi. Musculoskeletal: Normal ROM, no tenderness. Neurological: A&O x 3. CN II-XII intact, There are no obvious motor or sensory deficits. Coordination appears grossly intact. Speech is normal. Skin: Skin is warm and dry and no rashes or lesions are noted. Psychiatric: Cooperative. (Coy Mcgarry) Vital Signs 10/24/18 10/24/18 10/24/18 11:39 12:10 18:41 Temperature 98.2 F 98.1 F Pulse Rate 90 78 77 Respiratory 18 18 18 Rate Blood Pressure 162/109 122/94 123/84 O2 Sat by Pulse 95 93 L 93 L Oximetry 10/24/18 10/24/18 10/25/18 20:24 23:20 06:38 Temperature Pulse Rate 79 77 86 Respiratory 19 18 18 Rate Blood Pressure 132/84 132/87 120/84 O2 Sat by Pulse 97 99 98 Oximetry 10/25/18 10/25/18 10/26/18 16:00 22:00 07:59 Temperature 97.2 F L 98.0 F Pulse Rate 89 78 88 Respiratory 18 16 18 Rate Blood Pressure 120/68 132/82 130/90 O2 Sat by Pulse 99 97 100 Oximetry Medical Decision Making <Coy Mcgarry - Last Filed: 10/24/18 12:53> - Lab Data Result diagrams: 10/24/18 20:40 10/24/18 20:40 <Ankur Daugherty - Last Filed: 10/26/18 09:01> - Medical Decision Making Patient was seen by mental health services and held pending transfer. Patient was earlier certified by Dr. Schuster. Request for certification again. Patient reevaluated by myself, Dr. Daugherty. Patient resting comfortably in bed. Patient admits to feeling depressed and having suicidal thoughts. Clinical certificate completed again. Patient will be [place] [facility] [place] (Ankur Daugherty) - Lab Data Lab Results 10/24/18 10/24/18 10/24/18 Range/Units 13:22 20:40 20:40 WBC 7.6 (3.8-10.6) k/uL RBC 5.05 (3.80-5.40) m/uL Hgb 14.5 (11.4-16.0) gm/dL Hct 45.1 (34.0-46.0) % MCV 89.5 (80.0-100.0) fL MCH 28.7 (25.0-35.0) pg MCHC 32.1 (31.0-37.0) g/dL RDW 14.3 (11.5-15.5) % Plt Count 401 (150-450) k/uL Neutrophils % 57 % Lymphocytes % 33 % Monocytes % 4 % Eosinophils % 3 % Basophils % 1 % Neutrophils # 4.3 (1.3-7.7) k/uL Lymphocytes # 2.5 (1.0-4.8) k/uL Monocytes # 0.3 (0-1.0) k/uL Eosinophils # 0.3 (0-0.7) k/uL Basophils # 0.1 (0-0.2) k/uL Sodium 138 (137-145) mmol/L Potassium 3.8 (3.5-5.1) mmol/L Chloride 93 L (98-107) mmol/L Carbon Dioxide 26 (22-30) mmol/L Anion Gap 19 mmol/L BUN 18 H (7-17) mg/dL Creatinine 0.57 (0.52-1.04) mg/dL Est GFR (CKD-EPI)AfAm >90 (>60 ml/min/1.73 sqM) Est GFR (CKD-EPI)NonAf >90 (>60 ml/min/1.73 sqM) Glucose 79 (74-99) mg/dL Calcium 10.2 (8.4-10.2) mg/dL Total Bilirubin 1.5 H (0.2-1.3) mg/dL AST 53 H (14-36) U/L ALT 41 (9-52) U/L Alkaline Phosphatase 96 (38-126) U/L Total Protein 8.3 H (6.3-8.2) g/dL Albumin 5.1 H (3.5-5.0) g/dL Urine Color Urine Appearance (Clear) Urine pH (5.0-8.0) Ur Specific [place] (1.001-1.035) Urine Protein (Negative) Urine Glucose (UA) (Negative) Urine Ketones (Negative) Urine Blood (Negative) Urine Nitrite (Negative) Urine Bilirubin (Negative) Urine Urobilinogen (<2.0) mg/dL Ur Leukocyte Esterase (Negative) Urine Opiates Screen Not Detected (NotDetected) Ur Oxycodone Screen Not Detected (NotDetected) Urine Methadone Screen Not Detected (NotDetected) Ur Propoxyphene Screen Not Detected (NotDetected) Ur Barbiturates Screen Not Detected (NotDetected) U Tricyclic Antidepress Not Detected (NotDetected) Ur Phencyclidine Scrn Not Detected (NotDetected) Ur Amphetamines Screen Not Detected (NotDetected) U Methamphetamines Scrn Not Detected (NotDetected) U Benzodiazepines Scrn Not Detected (NotDetected) Urine Cocaine Screen Not Detected (NotDetected) U Marijuana (THC) Screen Not Detected (NotDetected) 10/24/18 Range/Units 22:00 WBC (3.8-10.6) k/uL RBC (3.80-5.40) m/uL Hgb (11.4-16.0) gm/dL Hct (34.0-46.0) % MCV (80.0-100.0) fL MCH (25.0-35.0) pg MCHC (31.0-37.0) g/dL RDW (11.5-15.5) % Plt Count (150-450) k/uL Neutrophils % % Lymphocytes % % Monocytes % % Eosinophils % % Basophils % % Neutrophils # (1.3-7.7) k/uL Lymphocytes # (1.0-4.8) k/uL Monocytes # (0-1.0) k/uL Eosinophils # (0-0.7) k/uL Basophils # (0-0.2) k/uL Sodium (137-145) mmol/L Potassium (3.5-5.1) mmol/L Chloride (98-107) mmol/L Carbon Dioxide (22-30) mmol/L Anion Gap mmol/L BUN (7-17) mg/dL Creatinine (0.52-1.04) mg/dL Est GFR (CKD-EPI)AfAm (>60 ml/min/1.73 sqM) Est GFR (CKD-EPI)NonAf (>60 ml/min/1.73 sqM) Glucose (74-99) mg/dL Calcium (8.4-10.2) mg/dL Total Bilirubin (0.2-1.3) mg/dL AST (14-36) U/L ALT (9-52) U/L Alkaline Phosphatase (38-126) U/L Total Protein (6.3-8.2) g/dL Albumin (3.5-5.0) g/dL Urine Color Yellow Urine Appearance Clear (Clear) Urine pH 7.0 (5.0-8.0) Ur Specific [place] 1.015 (1.001-1.035) Urine Protein Negative (Negative) Urine Glucose (UA) Negative (Negative) Urine Ketones 2+ H (Negative) Urine Blood Negative (Negative) Urine Nitrite Negative (Negative) Urine Bilirubin Negative (Negative) Urine Urobilinogen <2.0 (<2.0) mg/dL Ur Leukocyte Esterase Negative (Negative) Urine Opiates Screen (NotDetected) Ur Oxycodone Screen (NotDetected) Urine Methadone Screen (NotDetected) Ur Propoxyphene Screen (NotDetected) Ur Barbiturates Screen (NotDetected) U Tricyclic Antidepress (NotDetected) Ur Phencyclidine Scrn (NotDetected) Ur Amphetamines Screen (NotDetected) U Methamphetamines Scrn (NotDetected) U Benzodiazepines Scrn (NotDetected) Urine Cocaine Screen (NotDetected) U Marijuana (THC) Screen (NotDetected) Disposition <Coy Mcgarry - Last Filed: 10/24/18 12:53> <Ankur Daugherty - Last Filed: 10/26/18 09:01> Clinical Impression: Depression, Suicidal ideation Disposition: TRANSFER TO PSYCH HOSP/UNIT Referrals: Henok Florentino MD [Primary Care Provider] - 1-2 days
[2018-10-24 13:57] LABS: Amphetamine Screen,Urine Not Detected (NotDetected); Barbiturate Screen,Urine Not Detected (NotDetected); Benzodiazepines Screen,Urine Not Detected (NotDetected); Cocaine Screen,Urine Not Detected (NotDetected); Methadone Screen, Urine Not Detected (NotDetected); Opiate Screen,Urine Not Detected (NotDetected); Oxycodone Screen, Urine Not Detected (NotDetected); Phencyclidine Screen,Urine Not Detected (NotDetected); Tricyclic Antidepressant,Urine Not Detected (NotDetected); Urn Cannabinoid Scrn Not Detected (NotDetected)
[2018-10-24] MEDS: LORazepam 2 MG/ML INJ IV PRN (20:37)
[2018-10-24 21:54] LABS: Basophils # (A) 0.1 k/uL (0-0.2); Basophils % (A) 1 %; Eosinophils # (A) 0.3 k/uL (0-0.7); Eosinophils % (A) 3 %; HCT 45.1 % (34.0-46.0); HGB 14.5 gm/dL (11.4-16.0); Lymphocytes # (A) 2.5 k/uL (1.0-4.8); Lymphocytes % (A) 33 %; MCH 28.7 pg (25.0-35.0); MCHC 32.1 g/dL (31.0-37.0); MCV 89.5 fL (80.0-100.0); Mean Platelet Volume 6.5; Monocytes # (A) 0.3 k/uL (0-1.0); Monocytes % (A) 4 %; Neutrophils # (A) 4.3 k/uL (1.3-7.7); Neutrophils % (A) 57 %; Platelet Count 401 k/uL (150-450); RBC 5.05 m/uL (3.80-5.40); RDW 14.3 % (11.5-15.5); WBC 7.6 k/uL (3.8-10.6)
[2018-10-24 22:12] LABS: ALT 41 U/L (9-52); AST 53 U/L (14-36); Albumin 5.1 g/dL (3.5-5.0); Alkaline Phosphatase 96 U/L (38-126); Anion Gap 19 mmol/L; Blood Urea Nitrogen 18 mg/dL (7-17); Calcium 10.2 mg/dL (8.4-10.2); Carbon Dioxide 26 mmol/L (22-30); Chloride 93 mmol/L (98-107); Glucose 79 mg/dL (74-99); Potassium 3.8 mmol/L (3.5-5.1); Sodium 138 mmol/L (137-145); Total Bilirubin 1.5 mg/dL (0.2-1.3); Total Protein 8.3 g/dL (6.3-8.2)
[2018-10-25 00:12] LABS: Appearance,Urine Clear (Clear); Bilirubin,Urine Negative (Negative); Blood,Urine Negative (Negative); Color,Urine Yellow; Glucose,Urine (UA) Negative (Negative); Ketones,Urine 2+ (Negative); Leukocyte Esterase,Urine Negative (Negative); Nitrite,Urine Negative (Negative); Protein,Urine Negative (Negative); Specific Gravity,Urine 1.015 (1.001-1.035); Urobilinogen,Urine <2.0 mg/dL (<2.0)
[2018-10-25] MEDS: LORazepam 2 MG/ML INJ IV PRN ×3 (09:24→22:13)
[2018-10-25] MEDS ORDERED: diphenhydrAMINE 50 MG CAP PO STA (22:05)
[2018-10-26 08:00] VITALS: RESP 18; TEMP 98
[2018-10-26 10:13] VITALS: BP 139/98; PULSE 103
== END 2018-10-26 10:39 ==
LOC: EC 11:39
DX: F32.9 Major depressive disorder, single episode, unspecified (principal); R45.851 Suicidal ideations; F10.239 Alcohol dependence with withdrawal, unspecified; F41.9 Anxiety disorder, unspecified; I10 Essential (primary) hypertension; Z87.891 Personal history of nicotine dependence; Z79.899 Other long term (current) drug therapy; Z88.2 Allergy status to sulfonamides
CPT/HCPCS: 36415; 80053; 85025; 81003; 80306; 99285; 96374; 96376 ×5; J2060 ×2

== ENCOUNTER 2019-01-14 10:12 | Inpatient (IN) | payer OTHER ==
[2019-01-14] MEDS ORDERED: SODIUM CHLORIDE 0.9% 500 ML 500 ML IV ONE (11:56)
[2019-01-14 11:59] LABS: Basophils # (A) 0.1 k/uL (0-0.2); Basophils % (A) 1 %; Eosinophils # (A) 0.2 k/uL (0-0.7); Eosinophils % (A) 2 %; HCT 41.5 % (34.0-46.0); Lymphocytes # (A) 2.2 k/uL (1.0-4.8); Lymphocytes % (A) 33 %; MCH 29.5 pg (25.0-35.0); MCHC 31.3 g/dL (31.0-37.0); MCV 94.2 fL (80.0-100.0); Mean Platelet Volume 6.9; Monocytes # (A) 0.2 k/uL (0-1.0); Monocytes % (A) 4 %; Neutrophils % (A) 58 %; Platelet Count 298 k/uL (150-450); RBC 4.41 m/uL (3.80-5.40); RDW 14.2 % (11.5-15.5); WBC 6.8 k/uL (3.8-10.6)
[2019-01-14] MEDS ORDERED: cloNIDine HCL 0.1 MG TAB PO PRN (12:01)
[2019-01-14] MEDS: SODIUM CHLORIDE 0.9% 1,000 ML IV SCH ×2 (12:05→21:03)
[2019-01-14 12:22] LABS: ALT 50 U/L (9-52); AST 39 U/L (14-36); Albumin 3.9 g/dL (3.5-5.0); Alkaline Phosphatase 85 U/L (38-126); Anion Gap 11 mmol/L; Blood Urea Nitrogen 16 mg/dL (7-17); Calcium 9.2 mg/dL (8.4-10.2); Carbon Dioxide 27 mmol/L (22-30); Chloride 105 mmol/L (98-107); Glucose 93 mg/dL (74-99); Sodium 143 mmol/L (137-145); Total Bilirubin 0.6 mg/dL (0.2-1.3); Total Protein 6.5 g/dL (6.3-8.2)
[2019-01-14] MEDS ORDERED: LORazepam 2 MG/ML INJ IV PRN ×2 (17:21)
--- NOTE | 2019-01-14 18:02 | HP ---
HISTORY AND PHYSICAL CHIEF COMPLAINT: Acute alcohol intoxication and DTs. HISTORY OF PRESENT ILLNESS: This is another admission for this 48-year-old white female who struggles with alcoholism. She was in the hospital last year for DTs and was doing fairly well and then started drinking and came into the office on the day of admission looking for help. She is tremulous and tachycardic. She has had no blackouts or syncope. REVIEW OF SYSTEMS: She has had no other complaints. Past medical history, family history, and personal and social histories are all unremarkable and noncontributory and unchanged otherwise. She has been on: 1. Trazodone for sleep. 2. Clonidine 0.1 t.i.d. 3. Neurontin 100 mg 3 times a day. 4. Vitamin B. 5. She had been on oral treatment to try to control her alcoholism, which was not successful. The remainder of her family history, personal and social histories are unremarkable and noncontributory. She does not smoke. PHYSICAL EXAMINATION: Blood pressure is 130/100 with a pulse of 103, respirations of 35, and she is afebrile. In general she appeared to be slightly disheveled. Face was flushed. Skin was dry. Head, ears, eyes, nose, mouth and throat were normal. Neck veins were not distended. Chest was clear. Cardiac exam demonstrated sinus tachycardia. Abdomen was soft, nontender. Liver was not palpable. Extremities were normal. Neurologically she was intact. She is admitted to the hospital with the diagnoses: 1. Acute alcohol intoxication. 2. Chronic alcoholism. 3. Delirium tremens. PLAN: 1. Bed rest. 2. IV fluids. 3. CIWA protocol. MMODL / IJN: [id number] /
[2019-01-14] MEDS: DIAZEPAM 5 MG TAB PO PRN (21:03)
[2019-01-14] MEDS: diphenhydrAMINE 25 MG CAP PO SCH (21:03)
[2019-01-14] MEDS: traZODone HCL 50 MG TAB PO SCH (21:03)
[2019-01-14] MEDS: GABAPENTIN 300 MG CAP PO SCH (21:03)
[2019-01-15] MEDS ORDERED: THIAMINE 100 MG TAB PO SCH (09:00)
[2019-01-15] MEDS: THIAMINE 100 MG TAB PO SCH (09:21)
[2019-01-15] MEDS: DIAZEPAM 5 MG TAB PO PRN ×2 (09:21→21:31)
[2019-01-15] MEDS: GABAPENTIN 100 MG CAP PO SCH ×2 (09:21→12:43)
[2019-01-15] MEDS: SODIUM CHLORIDE 0.9% 1,000 ML IV SCH ×2 (09:21→17:08)
[2019-01-15] MEDS: PANTOPRAZOLE 40 MG TABLET PO SCH (09:21)
[2019-01-15 11:12] LABS: ALT <6 U/L (9-52); AST 169 U/L (14-36); Albumin 5.1 g/dL (3.5-5.0); Alkaline Phosphatase 441 U/L (38-126); Anion Gap 9 mmol/L; Blood Urea Nitrogen 16 mg/dL (7-17); Calcium 8.7 mg/dL (8.4-10.2); Carbon Dioxide 25 mmol/L (22-30); Chloride 105 mmol/L (98-107); Glucose 129 mg/dL (74-99); Potassium 4.5 mmol/L (3.5-5.1); Sodium 139 mmol/L (137-145); Total Bilirubin 8.6 mg/dL (0.2-1.3)
[2019-01-15] MEDS: LORazepam 2 MG/ML INJ IV PRN ×3 (12:42→19:57)
--- NOTE | 2019-01-15 16:36 | PN ---
PROGRESS NOTE DATE OF SERVICE: 01/15/2019 CHIEF COMPLAINT: Alcoholism and DTs. HISTORY OF PRESENT ILLNESS: This lady is doing fairly well. She is having some tremulousness and slight diplopia, but she is fairly stable. PHYSICAL EXAMINATION: Chest is clear. Cardiac exam demonstrates sinus tachycardia. Abdomen is soft, nontender. IMPRESSION: 1. Acute alcohol intoxication. 2. Delirium tremens. 3. Chronic alcoholism. PLAN: Continue on the protocol for at least another 24 hours. MMODL / IJN: [id number] /
[2019-01-15] MEDS: GABAPENTIN 300 MG CAP PO SCH (21:31)
[2019-01-15] MEDS: diphenhydrAMINE 25 MG CAP PO SCH (21:31)
[2019-01-15] MEDS: traZODone HCL 50 MG TAB PO SCH (21:31)
[2019-01-16] MEDS: SODIUM CHLORIDE 0.9% 1,000 ML IV SCH ×2 (06:14→12:41)
[2019-01-16] MEDS: GABAPENTIN 100 MG CAP PO SCH ×2 (07:59→12:33)
[2019-01-16] MEDS: PANTOPRAZOLE 40 MG TABLET PO SCH (07:59)
[2019-01-16] MEDS: THIAMINE 100 MG TAB PO SCH (07:59)
[2019-01-16] MEDS: LORazepam 2 MG/ML INJ IV PRN ×3 (08:19→12:39)
[2019-01-16 13:10] VITALS: BP 128/91; PULSE 79; RESP 18; TEMP 97.7
--- NOTE | 2019-01-17 13:26 | DS ---
DISCHARGE SUMMARY DATE OF SERVICE: 01/16/2019 CHIEF COMPLAINT: Acute alcohol intoxication, chronic alcoholism and DTs. HISTORY OF PRESENT ILLNESS AND PHYSICAL EXAM: The details of this lady's history and physical can be found in the initial workup. LABORATORY STUDIES: While she was in the hospital she had laboratory studies, details of which can be found in the laboratory section of her chart. COURSE IN HOSPITAL: After admission she was placed on bedrest, started on intravenous fluids and a CIWA protocol. She did fairly well and other than having some malaise and fatigue, was doing well on the 8th. It was discussed as to whether not she felt that she could go home. Initially she stated that she did not, but then later I received a call from the floor that she wanted to go and she was discharged by phone. She will go home on her usual activity, diet, medication and come into the office in a day or 2. FINAL DIAGNOSES: 1. Delirium tremens. 2. Acute alcohol intoxication. 3. Chronic alcoholism. OPERATIONS: None. CONSULTATION: None. She is improved. DOMINICK / ELENA: [id number] /
== END 2019-01-16 17:36 | disposition home or self-care (01) | DRG 897 ==
LOC: 4MS4W 10:40 → 3NMEDONC 01-15 17:46
PROVIDERS: ADMIT Family Medicine; ATTEND Family Medicine
DX: F10.221 Alcohol dependence with intoxication delirium (principal)
CPT/HCPCS: 80053; 85025

== ENCOUNTER 2022-12-04 12:53 | Observation (INO) | payer OTHER ==
--- NOTE | 2022-12-04 14:29 | ED ---
General Adult HPI - General Chief complaint: Chest Pain Stated complaint: Chest Pain, ETOH withdrawals Time Seen by Provider: 12/04/22 14:02 Source: patient, RN notes reviewed, old records reviewed Mode of arrival: wheelchair Limitations: no limitations - History of Present Illness Initial comments: Patient is a 52-year-old female with past medical history of EtOH abuse, hyperlipidemia, hypertension, presenting to the emergency Department with complaints of chest pain for the past week. Patient states she also wants to stop drinking alcohol and cannot do her herself. Patient describes the chest pain as intermittent, in the center of her chest over the past week. She denies abdominal pain, no nausea or vomiting. She denies a shortness of breath. She denies fevers or chills. She denies having cardiac history. She normally drinks 1/5 of vodka daily, she did drink approximately half of a fifth today already. She denies any lightheadedness or dizziness, she does feel nauseous however she states this is normal for her. No dysuria or hematuria, no diarrhea. She has no further complaints. - Related Data Home Medications Medication Instructions Recorded Confirmed No Known Home Medications 12/04/22 12/04/22 Allergies Allergy/AdvReac Type Severity Reaction Status Date / Time bacitracin Allergy Rash/Hives Verified 12/04/22 14:33 Sulfa (Sulfonamide Allergy Rash/Hives Verified 12/04/22 14:33 Antibiotics) Review of Systems ROS Statement: Those systems with pertinent positive or pertinent negative responses have been documented in the HPI. ROS Other: All systems not noted in ROS Statement are negative. Past Medical History Past Medical History: Hyperlipidemia, Hypertension History of Any Multi-Drug Resistant Organisms: None Reported Past Surgical History: Hysterectomy, Tubal Ligation, Uterine Ablation Additional Past Surgical History / Comment(s): gabriel nguyễn Past Anesthesia/Blood Transfusion Reactions: No Reported Reaction Past Psychological History: Anxiety, Depression Smoking Status: Former smoker Past Alcohol Use History: Daily - Past Family History Mother Family Medical History: No Reported History Father Family Medical History: Coronary Artery Disease (CAD) General Exam - General Exam Comments Initial Comments: GENERAL: Patient is nontoxic and in no acute distress, appears intoxicated. HEAD: Atraumatic, normocephalic. EYES: Pupils equal round and reactive to light, extraocular movements intact, sclera anicteric, conjunctiva are normal. Eyelids were unremarkable. ENT: Nares patent, oropharynx clear without exudates. Moist mucous membranes. NECK: Normal range of motion, supple without lymphadenopathy or JVD. LUNGS: Unlabored respirations. Breath sounds clear to auscultation bilaterally and equal. No wheezes rales or rhonchi. HEART: tachycardic rate and rhythm without murmurs, rubs or gallops. ABDOMEN: Soft, nontender, normoactive bowel sounds. No guarding, no rebound. No masses appreciated. : Deferred MUSCULOSKELETAL: Normal extremities with adequate strength and normal range of motion, no pitting or edema. No clubbing or cyanosis. NEUROLOGICAL: Patient is alert and oriented x 3. Motor and sensory are also intact. Cranial nerves II through XII grossly intact. Symmetrical smile. Normal speech, normal gait. PSYCH: Normal mood, normal affect. SKIN: Warm, Dry, normal turgor, no rashes or lesions noted. Limitations: no limitations Course Vital Signs 12/04/22 12/04/22 12/04/22 12:56 13:03 16:00 Temperature 98 F Pulse Rate 100 87 Pulse Rate [ 108 H [employer] ] Respiratory 20 93 H Rate Blood Pressure 167/88 127/84 O2 Sat by Pulse 97 93 L Oximetry EKG Findings - EKG Comments: EKG Findings:: sinus tachycardia, borderline left axis deviation, T-wave abnormality. Ventricular rate 100, CO interval 159, QT 340. Medical Decision Making - Medical Decision Making patient is a 52-year-old female with EtOH abuse, here for chest pain times one week, also requesting detox. She drank a half a fifth of vodka today. vital signs are stable, EKG showing no acute process, sinus tachycardia. Labs are showing elevation in AST and ALT, troponin is negative, lipase is 83, urine is negative. Current alcohol is 359. Patient's vitals remained stable. Patient will be admitted for chest pain and alcohol abuse. I spoke with Dr. Krishnamurthy who accepts admission. Case discussed with Dr. Daugherty. Was pt. sent in by a medical professional or institution (, PA, DATA CONSULTANT, urgent care, hospital, or fpc...) When possible be specific @ -[No] Did you speak to anyone other than the patient for history (EMS, parent, family, police, friend...)? What history was obtained from this source @ -[No] Did you review nursing and triage notes (agree or disagree)? Why? @ -[I reviewed and agree with nursing and triage notes] Were old charts reviewed (outside hosp., previous admission, EMS record, old EKG, old radiological studies, urgent care reports/EKG's, fpc records)? Report findings @ -[No old charts were reviewed] Differential Diagnosis (chest pain, altered mental status, abdominal pain women, abdominal pain men, vaginal bleeding, weakness, fever, dyspnea, syncope, headache, dizziness, GI bleed, back pain, seizure, CVA, palpatations, mental health)? @ -[Differential Chest Pain: Stable Angina, Unstable Angina, STEMI, NSTEMI Aortic Dissection, Pneumothorax, Musculoskeletal, Esophageal Spasm GERD, Cholecystitis, Pancreatitis, Zoster, this is not meant to be an all-inclusive list. ] EKG interpreted by me (3pts min.). @ -[As above] X-rays interpreted by me (1pt min.). @ -[None done] CT interpreted by me (1pt min.). @ -[None done] U/S interpreted by me (1pt. min.). @ -[None done] What testing was considered but not performed or refused? (CT, X-rays, U/S, labs)? Why? @ -[None] What meds were considered but not given or refused? Why? @ -[None] Was smoking cessation discussed for >3mins.? @ -[No] Was critical care preformed (if so, how long)? @ -[No] Were there social determinants of health that impacted care today? How? (Homelessness, low income, unemployed, alcoholism, drug addiction, transportation, low edu. Level, literacy, decrease access to med. care, shelter, rehab)? @ -[No] Was there de-escalation of care discussed even if they declined (Discuss DNR or withdrawal of care, Hospice)? DNR status @ -[No] What co-morbidities impacted this encounter? (DM, HTN, Smoking, COPD, CAD, Cancer, CVA, ARF, Chemo, Hep., AIDS, mental health diagnosis, sleep apnea, morbid obesity)? @ -[etoh abuse] Was patient admitted / discharged? Hospital course, mention meds given and route, prescriptions, significant lab abnormalities, going to OR and other pertinent info. @ -[admitted] Undiagnosed new problem with uncertain prognosis? @ -[No] Drug Therapy requiring intensive monitoring for toxicity (Heparin, Nitro, Insulin, Cardizem)? @ -[No] Were any procedures done? @ -[No] Side effects of treatment? @ -[No] Exacerbation, Progression, or Severe Exacerbation? @ -[No] Poses a threat to life or bodily function? How? (Chest pain, USA, CO, pneumonia, PE, COPD, DKA, ARF, appy, cholecystitis, CVA, Diverticulitis, Homicidal, Suicidal, threat to staff... and all critical care pts) @ -[No] - Lab Data Result diagrams: 12/04/22 14:17 12/04/22 14:17 Lab Results 12/04/22 12/04/22 12/04/22 Range/Units 14:17 14:17 14:17 WBC 4.4 (3.8-10.6) k/uL RBC 4.73 (3.80-5.40) m/uL Hgb 15.5 (11.4-16.0) gm/dL Hct 46.5 H (34.0-46.0) % MCV 98.4 (80.0-100.0) fL MCH 32.8 (25.0-35.0) pg MCHC 33.4 (31.0-37.0) g/dL RDW 14.1 (11.5-15.5) % Plt Count 263 (150-450) k/uL MPV 6.8 Neutrophils % 54 % Lymphocytes % 37 % Monocytes % 4 % Eosinophils % 1 % Basophils % 2 % Neutrophils # 2.4 (1.3-7.7) k/uL Lymphocytes # 1.6 (1.0-4.8) k/uL Monocytes # 0.2 (0-1.0) k/uL Eosinophils # 0.1 (0-0.7) k/uL Basophils # 0.1 (0-0.2) k/uL Sodium 144 (137-145) mmol/L Potassium 4.2 (3.5-5.1) mmol/L Chloride 104 (98-107) mmol/L Carbon Dioxide 28 (22-30) mmol/L Anion Gap 12 mmol/L BUN 11 (7-17) mg/dL Creatinine 0.50 L (0.52-1.04) mg/dL Est GFR (CKD-EPI)AfAm >90 (>60 ml/min/1.73 sqM) Est GFR (CKD-EPI)NonAf >90 (>60 ml/min/1.73 sqM) Glucose 83 (74-99) mg/dL Calcium 8.5 (8.4-10.2) mg/dL Total Bilirubin 0.8 (0.2-1.3) mg/dL AST 408 H (14-36) U/L ALT 252 H (4-34) U/L Alkaline Phosphatase 115 (38-126) U/L Troponin I (0.000-0.034) ng/mL Total Protein 7.3 (6.3-8.2) g/dL Albumin 4.5 (3.5-5.0) g/dL Amylase 70 (30-110) U/L Lipase 83 (23-300) U/L TSH 0.641 (0.465-4.680) mIU/L HCG, Quant 2.5 mIU/mL Urine Color Colorless Urine Appearance Clear (Clear) Urine pH 6.5 (5.0-8.0) Ur Specific [place] 1.004 (1.001-1.035) Urine Protein Negative (Negative) Urine Glucose (UA) Negative (Negative) Urine Ketones Negative (Negative) Urine Blood Negative (Negative) Urine Nitrite Negative (Negative) Urine Bilirubin Negative (Negative) Urine Urobilinogen <2.0 (<2.0) mg/dL Ur Leukocyte Esterase Negative (Negative) Urine Opiates Screen Not Detected (NotDetected) Ur Oxycodone Screen Not Detected (NotDetected) Urine Methadone Screen Not Detected (NotDetected) Ur Propoxyphene Screen Not Detected (NotDetected) Ur Barbiturates Screen Not Detected (NotDetected) U Tricyclic Antidepress Not Detected (NotDetected) Ur Phencyclidine Scrn Not Detected (NotDetected) Ur Amphetamines Screen Not Detected (NotDetected) U Methamphetamines Scrn Not Detected (NotDetected) U Benzodiazepines Scrn Not Detected (NotDetected) Urine Cocaine Screen Not Detected (NotDetected) U Marijuana (THC) Screen Not Detected (NotDetected) Serum Alcohol mg/dL 12/04/22 Range/Units 14:17 WBC (3.8-10.6) k/uL RBC (3.80-5.40) m/uL Hgb (11.4-16.0) gm/dL Hct (34.0-46.0) % MCV (80.0-100.0) fL MCH (25.0-35.0) pg MCHC (31.0-37.0) g/dL RDW (11.5-15.5) % Plt Count (150-450) k/uL MPV Neutrophils % % Lymphocytes % % Monocytes % % Eosinophils % % Basophils % % Neutrophils # (1.3-7.7) k/uL Lymphocytes # (1.0-4.8) k/uL Monocytes # (0-1.0) k/uL Eosinophils # (0-0.7) k/uL Basophils # (0-0.2) k/uL Sodium (137-145) mmol/L Potassium (3.5-5.1) mmol/L Chloride (98-107) mmol/L Carbon Dioxide (22-30) mmol/L Anion Gap mmol/L BUN (7-17) mg/dL Creatinine (0.52-1.04) mg/dL Est GFR (CKD-EPI)AfAm (>60 ml/min/1.73 sqM) Est GFR (CKD-EPI)NonAf (>60 ml/min/1.73 sqM) Glucose (74-99) mg/dL Calcium (8.4-10.2) mg/dL Total Bilirubin (0.2-1.3) mg/dL AST (14-36) U/L ALT (4-34) U/L Alkaline Phosphatase (38-126) U/L Troponin I <0.012 (0.000-0.034) ng/mL Total Protein (6.3-8.2) g/dL Albumin (3.5-5.0) g/dL Amylase (30-110) U/L Lipase (23-300) U/L TSH (0.465-4.680) mIU/L HCG, Quant mIU/mL Urine Color Urine Appearance (Clear) Urine pH (5.0-8.0) Ur Specific [place] (1.001-1.035) Urine Protein (Negative) Urine Glucose (UA) (Negative) Urine Ketones (Negative) Urine Blood (Negative) Urine Nitrite (Negative) Urine Bilirubin (Negative) Urine Urobilinogen (<2.0) mg/dL Ur Leukocyte Esterase (Negative) Urine Opiates Screen (NotDetected) Ur Oxycodone Screen (NotDetected) Urine Methadone Screen (NotDetected) Ur Propoxyphene Screen (NotDetected) Ur Barbiturates Screen (NotDetected) U Tricyclic Antidepress (NotDetected) Ur Phencyclidine Scrn (NotDetected) Ur Amphetamines Screen (NotDetected) U Methamphetamines Scrn (NotDetected) U Benzodiazepines Scrn (NotDetected) Urine Cocaine Screen (NotDetected) U Marijuana (THC) Screen (NotDetected) Serum Alcohol mg/dL Disposition Clinical Impression: Chest pain, ETOH abuse Disposition: ADMITTED IP TO THIS [facility] Condition: Stable Referrals: None,Stated [Primary Care Provider] - 1-2 days Decision Date: 12/04/22 Decision Time: 16:37
[2022-12-04 14:30] LABS: Basophils # (A) 0.1 k/uL (0-0.2); Basophils % (A) 2 %; Eosinophils # (A) 0.1 k/uL (0-0.7); Eosinophils % (A) 1 %; HCT 46.5 % (34.0-46.0); HGB 15.5 gm/dL (11.4-16.0); Lymphocytes # (A) 1.6 k/uL (1.0-4.8); Lymphocytes % (A) 37 %; MCH 32.8 pg (25.0-35.0); MCHC 33.4 g/dL (31.0-37.0); MCV 98.4 fL (80.0-100.0); Mean Platelet Volume 6.8; Monocytes # (A) 0.2 k/uL (0-1.0); Monocytes % (A) 4 %; Neutrophils # (A) 2.4 k/uL (1.3-7.7); Neutrophils % (A) 54 %; Platelet Count 263 k/uL (150-450); RBC 4.73 m/uL (3.80-5.40); RDW 14.1 % (11.5-15.5); WBC 4.4 k/uL (3.8-10.6)
[2022-12-04 14:32] LABS: Appearance,Urine Clear (Clear); Bilirubin,Urine Negative (Negative); Blood,Urine Negative (Negative); Color,Urine Colorless; Glucose,Urine (UA) Negative (Negative); Ketones,Urine Negative (Negative); Leukocyte Esterase,Urine Negative (Negative); Nitrite,Urine Negative (Negative); PH, Urine 6.5 (5.0-8.0); Protein,Urine Negative (Negative); Specific Gravity,Urine 1.004 (1.001-1.035); Urobilinogen,Urine <2.0 mg/dL (<2.0)
[2022-12-04 14:43] LABS: Amphetamine Screen,Urine Not Detected (NotDetected); Barbiturate Screen,Urine Not Detected (NotDetected); Benzodiazepines Screen,Urine Not Detected (NotDetected); Cocaine Screen,Urine Not Detected (NotDetected); Methadone Screen, Urine Not Detected (NotDetected); Opiate Screen,Urine Not Detected (NotDetected); Oxycodone Screen, Urine Not Detected (NotDetected); Phencyclidine Screen,Urine Not Detected (NotDetected); Tricyclic Antidepressant,Urine Not Detected (NotDetected); Urn Cannabinoid Scrn Not Detected (NotDetected)
[2022-12-04 14:46] LABS: ALT 252 U/L (4-34); AST 408 U/L (14-36); African American GFR (CKD) >90 (>60 ml/min/1.73 sqM); Albumin 4.5 g/dL (3.5-5.0); Alkaline Phosphatase 115 U/L (38-126); Amylase 70 U/L (30-110); Anion Gap 12 mmol/L; Blood Urea Nitrogen 11 mg/dL (7-17); Calcium 8.5 mg/dL (8.4-10.2); Carbon Dioxide 28 mmol/L (22-30); Chloride 104 mmol/L (98-107); Glucose 83 mg/dL (74-99); Lipase 83 U/L (23-300); Non-African American GFR(CKD) >90 (>60 ml/min/1.73 sqM); Potassium 4.2 mmol/L (3.5-5.1); Sodium 144 mmol/L (137-145); Total Bilirubin 0.8 mg/dL (0.2-1.3); Total Protein 7.3 g/dL (6.3-8.2)
[2022-12-04 15:01] LABS: HCG,Quantitative Serum 2.5 mIU/mL
--- NOTE | 2022-12-04 15:21 | XR ---
EXAMINATION TYPE: XR chest 2V DATE OF EXAM: 12/04/2022 COMPARISON: 09/30/2015 HISTORY: Chest pain TECHNIQUE: Frontal and lateral views of the chest are obtained. FINDINGS: There is no focal air space opacity. No evidence for pneumothorax. No pleural effusion. The cardiac silhouette size is within normal limits. The osseous structures are grossly intact. IMPRESSION: 1. No acute cardiopulmonary process.
[2022-12-04] MEDS ORDERED: THIAMINE 100 MG/ML 2 ML VIAL IM STA (16:33)
[2022-12-04] MEDS ORDERED: LORazepam 2 MG/ML INJ IV PRN (16:33)
[2022-12-04] MEDS ORDERED: NALOXONE 0.4 MG/ML 1 ML VIAL IV PRN (16:35)
[2022-12-04] MEDS ORDERED: ONDANSETRON 4 MG/2 ML VIAL IVP PRN (16:35)
[2022-12-04] MEDS ORDERED: IBUPROFEN 400 MG TAB PO PRN (16:35)
[2022-12-04] MEDS ORDERED: SODIUM CHLORIDE 0.9% 1,000 ML IV SCH (16:45)
[2022-12-04] MEDS ORDERED: LORazepam 2 MG/ML INJ IV STA (17:34)
[2022-12-04] MEDS ORDERED: MELATONIN 3 MG TABLET PO PRN (17:37)
--- NOTE | 2022-12-04 18:00 | P.HPIM ---
History of Present Illness H&P Date: 12/04/22 Chief Complaint: chest pain Patient is a 52-year-old female with known alcohol dependency, hypertension, and dyslipidemia who presented to the emergency department with complaints of chest pain for one weeks duration. In the ER she underwent an extensive evaluation. On arrival she was tachycardic with a heart rate of 100 and elevated blood pressure of 167/88. Laboratory analysis was remarkable for hematocrit 46.5, AST 408, ALT to 52, initial troponin was negative at 0.012. Remainder of labs are unremarkable. EKG is reviewed by myself showed sinus tachycardia with no significant ST-T wave changes and normal intervals. Chest x-ray showed no acute process. Patient seen and examined at bedside. She complains of just feeling "terrible". She reports she is very scared and anxious she thinks she is going to "stroke out". This is because for the last 1 month she has been having chest pain with exertion. Her symptoms have been coming more frequent and occurring with less exertion. She reports that these are associated with shortness of breath, she is unsure if there is any diaphoresis, they are associated with nausea, she denies any pain down into her arms or up into her chest. She states she's been ignoring of this because she is ashamed of how much alcohol she drinks. She has been drinking approximately 1/5 th plus some beers daily. His been quite a long time since she has gone a day without drinking. She feels as though her d epression and anxiety are becoming out of control. She is no longer able to treat them with alcohol alone. She does have a history of clinical depression but stopped her medications quite some time ago. She also has a history of high blood pressure but she does not take those medications. She is currently feeling very anxious and it has been getting worse. Her last drink was this morning of presentation to the ER. She reports that she has 4 kids with an 11 and 12-year-old at home. She has her is at home as well. She states she would like help for her alcoholism. She has been to rehab many times throughout her life but has pretty much been consistently drinking a fifth daily since her 20s. Pertinent positives and negatives as discussed in HPI, a complete review of systems was performed and all other systems are negative. Vital signs reviewed General: nontoxic, mild distress secondary to anxiety, appears at stated age Derm: warm, dry Head: atraumatic, normocephalic, symmetric Eyes: EOMI, no lid lag, anicteric sclera, pupils equal round reactive to light ENT: Nose and ears atraumatic, no thrush, + pharyngeal erythema Neck: No thyromegaly, no cervical lymphadenopathy, trachea midline, supple Mouth: no lip lesion, mucus membranes moist Cardiovascular: S1S2 reg, no murmur, positive posterior tibial pulse bilateral, no edema, capillary refill less than 2 seconds Lungs: clear to auscultation bilateral, no rhonchi, no rales, no wheeze, no accessory muscle use Abdominal: soft, nontender to palpation, no guarding, no appreciable organomegaly, normal bowel sounds Ext: no gross muscle atrophy, muscle strength 5 out of 5 in all 4 extremities, no contractures Neuro: CN II-XII grossly intact, light touch intact all 4 extremities, finger to nose within normal limits, Psych: Alert, oriented, anxious, upset, crying Assessment/Plan: Chest pain - cardiac vs liver inflammation vs Alcoholic gastritis -Some features typical, others atypical. -Trend troponins -Consult cardiology -Nothing by mouth after midnight -Aspirin, will hold on statin due to transaminitis -Check cholesterol profile and hemoglobin A1c Transaminitis -Most likely secondary to alcohol intake -Repeat CMP in a.m. -Check liver enzymes -Check hepatitis profile given patient's multiple tattoos Alcohol dependency with withdrawal symptoms -Ativan 2 mg IV 1 now, start Librium 25 mg 3 times a day -Banana bag 1 now -Start oral thiamine and folic acid in a.m. -Social work consult Depression -Suspect related to alcohol intoxication -If continues will consult psychiatry The patient is admitted with an anticipated greater than 2 midnight stay for evaluation of chest pain, alcohol withdrawal. Surrogate decision-maker: CODE STATUS:full DVT prophylaxis: Lovenox Discussed with: Patient, nursing, ED provider Anticipated discharge date: pending clinical course Anticipated discharge place: rehab A total of 65 minutes was spent on the care of this complex patient more than 50% of the time was spent in counseling and care coordination. Past Medical History Past Medical History: Hyperlipidemia, Hypertension History of Any Multi-Drug Resistant Organisms: None Reported Past Surgical History: Hysterectomy, Tubal Ligation, Uterine Ablation Additional Past Surgical History / Comment(s): gabriel nguyễn Past Anesthesia/Blood Transfusion Reactions: No Reported Reaction Past Psychological History: Anxiety, Depression Smoking Status: Former smoker Past Alcohol Use History: Daily - Past Family History Mother Family Medical History: No Reported History Father Family Medical History: Coronary Artery Disease (CAD) Medications and Allergies Home Medications Medication Instructions Recorded Confirmed Type No Known Home Medications 12/04/22 12/04/22 History Allergies Allergy/AdvReac Type Severity Reaction Status Date / Time bacitracin Allergy Rash/Hives Verified 12/04/22 14:33 Sulfa (Sulfonamide Allergy Rash/Hives Verified 12/04/22 14:33 Antibiotics) Physical Exam Osteopathic Statement: *. No significant issues noted on an osteopathic structural exam other than those noted in the History and Physical/Consult. Vitals: Vital Signs Temp Pulse Pulse Resp BP Pulse Ox 12/04/22 17:51 86 18 124/87 12/04/22 16:00 87 93 H 127/84 93 L 12/04/22 13:03 108 H 12/04/22 12:56 98 F 100 20 167/88 97 Intake and Output 12/04/22 12/04/22 12/04/22 06:59 14:59 22:59 Other: Weight 81.647 kg Results CBC & Chem 7: 12/04/22 14:17 12/04/22 14:17 Labs: Abnormal Lab Results - Last 24 Hours (Table) 12/04/22 12/04/22 Range/Units 14:17 14:17 Hct 46.5 H (34.0-46.0) % Creatinine 0.50 L (0.52-1.04) mg/dL AST 408 H (14-36) U/L ALT 252 H (4-34) U/L
[2022-12-04] MEDS: chlordiazePOXIDE 25 MG CAP PO SCH ×2 (18:24→21:38)
[2022-12-04] MEDS: LORazepam 2 MG/ML INJ IV PRN (20:04)
[2022-12-05] MEDS: LORazepam 2 MG/ML INJ IV PRN ×3 (00:41→16:23)
--- NOTE | 2022-12-05 08:08 | US ---
EXAMINATION TYPE: US liver DATE OF EXAM: 12/05/2022 COMPARISON: CT 01/13/2018, US 09/15/2014 CLINICAL HISTORY: transaminitis. TECHNIQUE: Multiple sonographic images of the right upper quadrant are obtained. FINDINGS: EXAM MEASUREMENTS: Liver Length: Measured at 19.9 cm, slightly limited measurement. Gallbladder Wall: 0.22 cm CBD: 0.52 cm Right Kidney: 11.9 x 5.4 x 4.5 cm QUARTZ MOUNTER NOTES: Exam is limited due to gas. Pancreas: Limited due to gas. Liver: Appears enlarged and very heterogeneous with increased echogenicity. Gallbladder: Measures 9.8 cm in length. Appears anechoic. Evidence for sonographic Arrieta's sign: No CBD: Portions seen appear wnl Right Kidney: No hydronephrosis or masses seen The visualized portion of the pancreas is unremarkable. The tail is obscured by overlying bowel gas. The liver is enlarged with heterogenous increased echotexture without definitive focal lesion. No gal lstones, pericholecystic fluid, wall thickening identified. Visualized portion of the common bile bhargav t is unremarkable. The right kidney is unremarkable without evidence of calculi, hydronephrosis, cont our deforming solid mass. IMPRESSION: Hepatomegaly with heterogenous increase echogenicity without focal lesion. Findings suggest hepatocel lular disease which is most commonly seen with hepatic steatosis.
[2022-12-05 08:38] LABS: HCT 42.5 % (34.0-46.0); HGB 13.9 gm/dL (11.4-16.0); MCH 32.1 pg (25.0-35.0); MCHC 32.7 g/dL (31.0-37.0); MCV 98.4 fL (80.0-100.0); Mean Platelet Volume 7.4; Platelet Count 206 k/uL (150-450); RBC 4.32 m/uL (3.80-5.40); RDW 13.9 % (11.5-15.5); WBC 5.6 k/uL (3.8-10.6)
[2022-12-05 08:53] LABS: INR 0.9 (<1.2); Prothrombin Time 9.7 sec (9.0-12.0)
[2022-12-05 08:57] LABS: ALT 208 U/L (4-34); AST 256 U/L (14-36); African American GFR (CKD) >90 (>60 ml/min/1.73 sqM); Albumin 4.2 g/dL (3.5-5.0); Alkaline Phosphatase 102 U/L (38-126); Anion Gap 10 mmol/L; Blood Urea Nitrogen 21 mg/dL (7-17); Calcium 8.8 mg/dL (8.4-10.2); Carbon Dioxide 26 mmol/L (22-30); Chloride 100 mmol/L (98-107); Glucose 78 mg/dL (74-99); Magnesium 1.7 mg/dL (1.6-2.3); Non-African American GFR(CKD) >90 (>60 ml/min/1.73 sqM); Potassium 4.1 mmol/L (3.5-5.1); Sodium 136 mmol/L (137-145); Total Bilirubin 2.1 mg/dL (0.2-1.3); Total Protein 6.6 g/dL (6.3-8.2)
[2022-12-05] MEDS: ENOXAPARIN 40 MG/0.4 ML SYRINGE SQ SCH (08:58)
[2022-12-05] MEDS: THIAMINE 100 MG TAB PO SCH (08:58)
[2022-12-05] MEDS: PANTOPRAZOLE 40 MG/10 ML VIAL IV SCH (08:58)
[2022-12-05] MEDS: chlordiazePOXIDE 25 MG CAP PO SCH ×3 (08:58→21:00)
[2022-12-05] MEDS: ASPIRIN 81 MG PO SCH (08:58)
--- NOTE | 2022-12-05 10:08 | P.CRDCN ---
History of Present Illness Consult date: 12/05/22 History of present illness: HISTORY OF PRESENT ILLNESS: This is a 52-year-old female with a past medical history significant for alcohol abuse, hypertension and hyperlipidemia (with medication noncompliance). Patient does not follow with a water proofer. We have been asked to see the patient in consultation for chest pain. Patient examined at the bedside. Patient states she has been having chest pain on and off for the past week. She states the pain is mostly in the middle of her chest and also in the epigastric region. She denies any radiation of the pain. She reports nausea and vomiting and states that she still feels nauseous this morning. She she also reports feeling short of breath with exertion for a couple of weeks which is new for her. She states that she is usually fairly active. She reports mild chest pain this morning with chest wall palpation. She states the pain is not worse with deep inspiration. * EKG reveals sinus mechanism with T-wave inversions in lateral leads * Chest xray no acute cardiopulmonary process * Laboratory data: WBC 5.6. Hemoglobin 13.9. Daily count 206. Sodium 136. Potassium 4.1. BUN 21. Creatinine 0.57. AST 256 rate ALT 208. Troponin negative 3. TSH 2.090. * Current home cardiac medications include none REVIEW OF SYSTEMS: At the time of my exam: CONSTITUTIONAL: Denies fever or chills. HEENT: Denies blurred vision, vision changes, or eye pain. Denies hemoptysis CARDIOVASCULAR: Denies chest pain. Denies orthopnea. Denies PND. Denies palpitations RESPIRATORY: Denies shortness of breath. GASTROINTESTINAL: Denies abdominal pain. Reports nausea HEMATOLOGIC: Denies bleeding disorders. GENITOURINARY: Denies any blood in urine. SKIN: Denies pruitis. Denies rash. PHYSICAL EXAM: VITAL SIGNS: Reviewed. GENERAL: Well-developed in no acute distress. HEENT: Head is normocephalic. Pupils are equal, round. Sclerae anicteric. Mucous membranes of the mouth are moist. Neck supple. No JVD or thyromegaly LUNGS: Respirations even and unlabored. Lungs essentially clear to auscultation bilaterally. HEART: Regular rate and rhythm. S1 and S2 heard. ABDOMEN: Soft. Nondistended. Nontender. EXTREMITIES: Normal range of motion. No clubbing or cyanosis. Peripheral pulses intact. No lower extremity edema NEUROLOGIC: Awake and alert. Oriented x 3. ASSESSMENT: Chest pain, appears noncardiac in origin, troponin negative 3 Hypertension, not on antihypertensive medications on an outpatient basis Hyperlipidemia, not on statin therapy on an outpatient basis Transaminitis Alcohol abuse PLAN: An acute coronary event has been ruled out Patient has been started on aspirin 81 mg daily Hold off on statin therapy at this time secondary to elevated LFTs Obtain 2-D echo to assess cardiac structure and function Continue telemetry monitoring Further recommendations pending patient's course Nurse practitioner note has been reviewed by physician. Signing provider agrees with the documented findings, assessment, and plan of care. Past Medical History Past Medical History: Hyperlipidemia, Hypertension History of Any Multi-Drug Resistant Organisms: None Reported Past Surgical History: Hysterectomy, Tubal Ligation, Uterine Ablation Additional Past Surgical History / Comment(s): gabriel nguyễn Past Anesthesia/Blood Transfusion Reactions: No Reported Reaction Past Psychological History: Anxiety, Depression Smoking Status: Former smoker Past Alcohol Use History: Daily Additional Past Alcohol Use History / Comment(s): fifth per day Past Drug Use History: None Reported - Past Family History Mother Family Medical History: No Reported History Father Family Medical History: Coronary Artery Disease (CAD) Medications and Allergies Home Medications Medication Instructions Recorded Confirmed Type No Known Home Medications 12/04/22 12/04/22 History Allergies Allergy/AdvReac Type Severity Reaction Status Date / Time bacitracin Allergy Rash/Hives Verified 12/04/22 14:33 Sulfa (Sulfonamide Allergy Rash/Hives Verified 12/04/22 14:33 Antibiotics) Physical Exam Vitals: Vital Signs Temp Pulse Pulse Resp BP BP Pulse Ox 12/05/22 07:36 98.4 F 94 18 145/93 96 12/05/22 04:00 94 19 146/88 93 L 12/05/22 00:00 98.2 F 102 H 19 126/83 94 L 12/04/22 20:00 98.0 F 107 H 19 121/80 95 12/04/22 18:06 80 18 12/04/22 18:05 98.3 F 80 18 138/86 96 12/04/22 17:51 86 18 124/87 12/04/22 16:00 87 93 H 127/84 93 L 12/04/22 13:03 108 H 12/04/22 12:56 98 F 100 20 167/88 97 Intake and Output 12/04/22 12/05/22 12/05/22 22:59 06:59 14:59 Intake Total 310 Balance 310 Intake: IV 10 Invasive Line 1 10 Oral 300 Other: Voiding Method Toilet Toilet # Voids 2 Weight 81.647 kg Results 12/05/22 07:48 12/05/22 07:48 Cardiac Enzymes 12/04/22 12/04/22 12/04/22 Range/Units 14:17 14:17 18:12 AST 408 H (14-36) U/L Troponin I <0.012 <0.012 (0.000-0.034) ng/mL 12/04/22 Range/Units 21:28 AST (14-36) U/L Troponin I <0.012 (0.000-0.034) ng/mL CBC 12/04/22 Range/Units 14:17 WBC 4.4 (3.8-10.6) k/uL RBC 4.73 (3.80-5.40) m/uL Hgb 15.5 (11.4-16.0) gm/dL Hct 46.5 H (34.0-46.0) % Plt Count 263 (150-450) k/uL Comprehensive Metabolic Panel 12/04/22 Range/Units 14:17 Sodium 144 (137-145) mmol/L Potassium 4.2 (3.5-5.1) mmol/L Chloride 104 (98-107) mmol/L Carbon Dioxide 28 (22-30) mmol/L BUN 11 (7-17) mg/dL Creatinine 0.50 L (0.52-1.04) mg/dL Glucose 83 (74-99) mg/dL Calcium 8.5 (8.4-10.2) mg/dL AST 408 H (14-36) U/L ALT 252 H (4-34) U/L Alkaline Phosphatase 115 (38-126) U/L Total Protein 7.3 (6.3-8.2) g/dL Albumin 4.5 (3.5-5.0) g/dL Current Medications Generic Name Dose Route Start Last Admin Trade Name Freq PRN Reason Stop Dose Admin Aspirin 81 mg 12/05/22 09:00 Aspirin 81 Mg PO DAILY [facility] Chlordiazepoxide HCl 25 mg 12/04/22 17:45 12/04/22 21:38 Chlordiazepoxide 25 Mg Cap PO 25 mg TID DANIELLA Administration Enoxaparin Sodium 40 mg 12/05/22 09:00 Enoxaparin 40 Mg/0.4 Ml Syringe SQ DAILY DANIELLA Ibuprofen 400 mg 12/04/22 16:35 Ibuprofen 400 Mg Tab PO Q6HR PRN Mild Pain or Fever > 100.5 Lorazepam 2 mg 12/04/22 16:33 12/05/22 00:41 Lorazepam 2 Mg/Ml Inj IV 12/06/22 16:34 2 mg Q10M PRN Administration CIWA 16 or higher Lorazepam 1 mg 12/04/22 16:33 12/05/22 06:36 Lorazepam 2 Mg/Ml Inj IV 1 mg Q1HR PRN Administration CIWA 10 to 15 Lorazepam 1 mg 12/04/22 16:33 Lorazepam 2 Mg/Ml Inj IV Q2HR PRN CIWA 8 or 9 Melatonin 3 mg 12/04/22 17:37 Melatonin 3 Mg Tablet PO HS PRN Insomnia Naloxone HCl 0.2 mg 12/04/22 16:35 Naloxone 0.4 Mg/Ml 1 Ml Vial IV Q2M PRN Opioid Reversal Ondansetron HCl 4 mg 12/04/22 16:35 Ondansetron 4 Mg/2 Ml Vial IVP Q8HR PRN Nausea And Vomiting Pantoprazole Sodium 40 mg 12/05/22 09:00 Pantoprazole 40 Mg/10 Ml Vial IV DAILY [facility] Thiamine HCl 100 mg 12/05/22 09:00 Thiamine 100 Mg Tab PO DAILY [facility] Intake and Output 12/04/22 12/05/22 12/05/22 22:59 06:59 14:59 Intake Total 310 Balance 310 Intake: IV 10 Invasive Line 1 10 Oral 300 Other: Voiding Method Toilet Toilet # Voids 2 Weight 81.647 kg 12/04/22 14:17 12/04/22 14:17
[2022-12-05 11:12] LABS: Hepatitis A Antibody IgM Nonreactive (Nonreactive); Hepatitis B Core IgM Nonreactive (Nonreactive); Hepatitis B Surface Antigen Nonreactive (Nonreactive); Hepatitis C IgG Antibody Nonreactive (Nonreactive)
[2022-12-05 14:42] LABS: Chol/HDL Ratio 1.85 Ratio; VLDL Calculation 13.98 mg/dL (5.00-40.00)
--- NOTE | 2022-12-05 15:39 | P.PN ---
Subjective Progress Note Date: 12/05/22 (delayed charting seen at 0930) Patient is a 52-year-old female with known alcohol dependency, hypertension, and dyslipidemia who presented to the emergency department with complaints of chest pain for one weeks duration. In the ER she underwent an extensive evaluation. On arrival she was tachycardic with a heart rate of 100 and elevated blood pressure of 167/88. Laboratory analysis was remarkable for hematocrit 46.5, AST 408, ALT to 52, initial troponin was negative at 0.012. Remainder of labs are unremarkable. EKG is reviewed by myself showed sinus tachycardia with no significant ST-T wave changes and normal intervals. Chest x-ray showed no acute process. Patient seen and examined at bedside. Stillhaving some internal anxiety, but less than yesterday, + DOYLE, + nausea + diaphoresis. Still wtih chest pain but much improved. General: nontoxic, no distress, appears at stated age Derm: warm, dry Head: atraumatic, normocephalic, symmetric Eyes: EOMI, no lid lag, anicteric sclera Mouth: no lip lesion, mucus membranes moist Cardiovascular: S1S2 reg, no murmur, positive posterior tibial pulse bilateral, Lungs: CTA bilateral, no rhonchi, no rales , no accessory muscle use Abdominal: soft, nontender to palpation, no guarding, no appreciable organomegaly Ext: no gross muscle atrophy, no edema, no contractures Neuro: CN II-XI grossly intact, no focal neuro deficits Psych: Alert, oriented, intermittently sleeping and anxious. Assessment/Plan: Chest pain - cardiac vs liver inflammation vs Alcoholic gastritis -Some features typical, others atypical. -NSTEMI ruled out with negative troponins -Cardiology recs appreaicted: await echo -Aspirin, will hold on statin due to transaminitis - elevated HDL Transaminitis, suspect alcoholic hepatitis steatohepatitis -Repeat CMP in a.m. -hepatitis profile negative Alcohol dependency with withdrawal symptoms - librium - oral folic acid and thiamine - CIWA Depression -Suspect related to alcohol intoxication -If continues will consult psychiatry Surrogate decision-maker: DVT prophylaxis: Lovenox Discussed with: Patient, nursing Anticipated discharge date: pending clinical course Anticipated discharge place: home A total of 25 minutes was spent on the care of this complex patient more than 50% of the time was spent in counseling and care coordination. Active Medications Generic Name Dose Route Start Last Admin Trade Name Freq PRN Reason Stop Dose Admin Aspirin 81 mg 12/05/22 09:00 12/05/22 08:58 Aspirin 81 Mg PO 81 mg DAILY DANIELLA Administration Chlordiazepoxide HCl 25 mg 12/04/22 17:45 12/05/22 08:58 Chlordiazepoxide 25 Mg Cap PO 25 mg TID DANIELLA Administration Enoxaparin Sodium 40 mg 12/05/22 09:00 12/05/22 08:58 Enoxaparin 40 Mg/0.4 Ml Syringe SQ 40 mg DAILY DANIELLA Administration Ibuprofen 400 mg 12/04/22 16:35 Ibuprofen 400 Mg Tab PO Q6HR PRN Mild Pain or Fever > 100.5 Lorazepam 2 mg 12/04/22 16:33 12/05/22 00:41 Lorazepam 2 Mg/Ml Inj IV 12/06/22 16:34 2 mg Q10M PRN Administration CIWA 16 or higher Lorazepam 1 mg 12/04/22 16:33 12/05/22 06:36 Lorazepam 2 Mg/Ml Inj IV 1 mg Q1HR PRN Administration CIWA 10 to 15 Lorazepam 1 mg 12/04/22 16:33 12/05/22 08:59 Lorazepam 2 Mg/Ml Inj IV 1 mg Q2HR PRN Administration CIWA 8 or 9 Melatonin 3 mg 12/04/22 17:37 Melatonin 3 Mg Tablet PO HS PRN Insomnia Naloxone HCl 0.2 mg 12/04/22 16:35 Naloxone 0.4 Mg/Ml 1 Ml Vial IV Q2M PRN Opioid Reversal Ondansetron HCl 4 mg 12/04/22 16:35 Ondansetron 4 Mg/2 Ml Vial IVP Q8HR PRN Nausea And Vomiting Pantoprazole Sodium 40 mg 12/05/22 09:00 12/05/22 08:58 Pantoprazole 40 Mg/10 Ml Vial IV 40 mg DAILY DANIELLA Administration Thiamine HCl 100 mg 12/05/22 09:00 12/05/22 08:58 Thiamine 100 Mg Tab PO 100 mg DAILY DANIELLA Administration Objective - Vital Signs Vital signs: Vital Signs Temp 98.4 F 12/05/22 07:36 Pulse 90 12/05/22 14:00 Resp 16 12/05/22 14:00 BP 142/90 12/05/22 12:00 Pulse Ox 93 L 12/05/22 12:00 FiO2 Intake & Output 01/24/23 01/25/23 01/25/23 18:59 06:59 18:59 Intake Total 210 100 Balance 210 100 Weight 81.647 kg Intake: IV 10 Invasive Line 1 10 Oral 200 100 Other: Voiding Method Toilet Toilet Toilet # Voids 2 1 - Labs CBC & Chem 7: 12/05/22 07:48 12/05/22 07:48 Labs: Abnormal Lab Results - Last 24 Hours (Table) 12/05/22 Range/Units 07:48 Sodium 136 L (137-145) mmol/L BUN 21 H (7-17) mg/dL Total Bilirubin 2.1 H (0.2-1.3) mg/dL AST 256 H (14-36) U/L ALT 208 H (4-34) U/L Cholesterol 272.00 H (0.00-200.00) mg/dL HDL Cholesterol 147.00 H (40.00-60.00) mg/dL
--- NOTE | 2022-12-05 16:38 | CA ---
Transthoracic Echo Report Name: Nava Danielle Age: 52 Gender: F : 1970 Exam Date: 12/05/2022 10:31 Exam Location: [facility] Ht (in): 63 Wt (lb): 180 Ordering Physician: Edna Luis Attending/Referring Phys: [id number], Janelle Investor Rafi Uriarte RDCS Procedure CPT: Indications: LV function Cardiac Hx: Technical Quality: Fair Contrast 1: Total Dose (mL): Contrast 2: Total Dose (mL): MEASUREMENTS (Male / Female) Normal Values 2D ECHO LV Diastolic Diameter PLAX 4.7 cm 4.2 - 5.9 / 3.9 - 5.3 cm LV Systolic Diameter PLAX 2.9 cm IVS Diastolic Thickness 1.2 cm 0.6 - 1.0 / 0.6 - 0.9 cm LVPW Diastolic Thickness 1.3 cm 0.6 - 1.0 / 0.6 - 0.9 cm LV Relative Wall Thickness 0.5 RV Internal Dim ED PLAX 2.4 cm M-MODE Aortic Root Diameter MM 2.9 cm LA Systolic Diameter MM 3.5 cm LA Ao Ratio MM 1.2 AV Cusp Separation MM 1.4 cm DOPPLER AV Peak Velocity 167.2 cm/s AV Peak Gradient 11.2 mmHg LVOT Peak Velocity 93.7 cm/s LVOT Peak Gradient 3.5 mmHg MV Area PHT 5.8 cm??? Mitral E Point Velocity 65.5 cm/s Mitral A Point Velocity 89.8 cm/s Mitral E to A Ratio 0.7 MV Deceleration Time 129.9 ms TR Peak Velocity 157.9 cm/s TR Peak Gradient 10.0 mmHg FINDINGS Left Ventricle Mildly increased septal wall thickness. Moderately increased posterior wall thickness. Left ventricular hypertrophy. Left ventricular ejection fraction is estimated at 55-60 %. Right Ventricle Right ventricular hypertrophy. Right Atrium Normal right atrial size. Left Atrium Normal left atrial size. Mitral Valve Trace mitral regurgitation. Aortic Valve Trileaflet aortic valve. No aortic stenosis. No aortic regurgitation. Tricuspid Valve Trace tricuspid regurgitation. Pulmonic Valve Structurally normal pulmonic valve. Pericardium No pericardial effusion. No pleural effusion. Aorta Normal size aortic root and proximal ascending aorta. CONCLUSIONS Normal LV function Previewed by: Dr. Tripp Rollins MD (Electronically Signed) Final Date: 05 December 2022 16:37
[2022-12-06] MEDS: LORazepam 2 MG/ML INJ IV PRN ×3 (01:26→12:12)
[2022-12-06] MEDS: ENOXAPARIN 40 MG/0.4 ML SYRINGE SQ SCH (08:31)
[2022-12-06] MEDS: ASPIRIN 81 MG PO SCH (08:32)
[2022-12-06] MEDS: PANTOPRAZOLE 40 MG/10 ML VIAL IV SCH (08:32)
[2022-12-06] MEDS: THIAMINE 100 MG TAB PO SCH (08:32)
[2022-12-06] MEDS: chlordiazePOXIDE 25 MG CAP PO SCH ×4 (08:32→21:35)
--- NOTE | 2022-12-06 09:21 | P.PN ---
Subjective Progress Note Date: 12/06/22 HISTORY OF PRESENT ILLNESS: This is a 52-year-old female with a past medical history significant for alcohol abuse, hypertension and hyperlipidemia (with medication noncompliance). Patient does not follow with a php programmer. We have been asked to see the patient in consultation for chest pain. Patient examined at the bedside. Patient states she has been having chest pain on and off for the past week. She states the pain is mostly in the middle of her chest and also in the epigastric region. She denies any radiation of the pain. She reports nausea and vomiting and states that she still feels nauseous this morning. She she also reports feeling short of breath with exertion for a couple of weeks which is new for her. She states that she is usually fairly active. She reports mild chest pain this morning with chest wall palpation. She states the pain is not worse with deep inspiration. * EKG reveals sinus mechanism with T-wave inversions in lateral leads * Chest xray no acute cardiopulmonary process * Laboratory data: WBC 5.6. Hemoglobin 13.9. Daily count 206. Sodium 136. Potassium 4.1. BUN 21. Creatinine 0.57. AST 256 rate ALT 208. Troponin negative 3. TSH 2.090. * Current home cardiac medications include none 12/06/2022 Patient examined this morning at the bedside. Patient denies chest pain or pressure. She denies shortness of breath. Echocardiogram completed revealing ejection fraction 55-60%, vital signs are stable. She is receiving IV Ativan secondary to alcohol withdrawal. PHYSICAL EXAM: VITAL SIGNS: Reviewed. GENERAL: Well-developed in no acute distress. HEENT: Head is normocephalic. Pupils are equal, round. Sclerae anicteric. Mucous membranes of the mouth are moist. Neck supple. No JVD or thyromegaly LUNGS: Respirations even and unlabored. Lungs essentially clear to auscultation bilaterally. HEART: Regular rate and rhythm. S1 and S2 heard. ABDOMEN: Soft. Nondistended. Nontender. EXTREMITIES: Normal range of motion. No clubbing or cyanosis. Peripheral pulses intact. No lower extremity edema NEUROLOGIC: Awake and alert. Oriented x 3. ASSESSMENT: Chest pain, appears noncardiac in origin, troponin negative 3 Hypertension, not on antihypertensive medications on an outpatient basis Hyperlipidemia, not on statin therapy on an outpatient basis Transaminitis Alcohol abuse PLAN: Continue current cardiac medications Hold off on statin therapy at this time secondary to elevated LFTs Patient is stable from a cardiac standpoint with no further inpatient recommendations We will sign off. Please reconsult if needed Patient to follow-up with Dr. Marshall in 3 weeks. Nurse practitioner note has been reviewed by physician. Signing provider agrees with the documented findings, assessment, and plan of care. Objective - Vital Signs Vital signs: Vital Signs Temp 97.6 F 12/06/22 08:30 Pulse 78 12/06/22 08:30 Resp 16 12/06/22 08:30 BP 161/96 12/06/22 08:30 Pulse Ox 96 12/06/22 08:30 FiO2 Intake & Output 12/05/22 12/06/22 12/06/22 18:59 06:59 18:59 Other: Voiding Method Toilet Toilet Toilet # Voids 1 2 - Labs CBC & Chem 7: 12/05/22 07:48 12/05/22 07:48 Labs: Abnormal Lab Results - Last 24 Hours (Table) 12/05/22 Range/Units 07:48 Cholesterol 272.00 H (0.00-200.00) mg/dL HDL Cholesterol 147.00 H (40.00-60.00) mg/dL
--- NOTE | 2022-12-06 10:11 | P.PN ---
Subjective Patient seen and examined at bedside. Patient was emotional distress morning. She teared up when asked about her current situation and detox process. She does admit to depression. Patient did have a bottle of ibuprofen with the next set of pills at her bedside. Patient stated that she's been taking Benadryl didn't feel like it would affect anything. Echo bottle was taken away from the patient and patient was counseled on importance of following medication administration guidelines while in the hospital. Patient currently denies suicidal thought or ideation. Patient would like to speak to a psychiatrist. Objective - Vital Signs Vital signs: Vital Signs Temp 97.6 F 12/06/22 08:30 Pulse 78 12/06/22 08:30 Resp 16 12/06/22 08:30 BP 161/96 12/06/22 08:30 Pulse Ox 96 12/06/22 08:30 FiO2 Intake & Output 12/05/22 12/06/22 12/06/22 18:59 06:59 18:59 Other: Voiding Method Toilet Toilet Toilet # Voids 1 2 - Exam General: [non toxic], [no distress], [appears at stated age] Derm: [warm], [dry] Head: [atraumatic], [normocephalic], [symmetric] Eyes: [EOMI], [no lid lag], [anicteric sclera] Mouth: [no lip lesion], [mucus membranes moist] Cardiovascular: [S1S2 reg], [no murmur], [positive posterior tibial pulse bilateral], Lungs: [CTA bilateral], [no rhonchi, no rales] , [no accessory muscle use] Abdominal: [soft], [ nontender to palpation], [no guarding], [no appreciable organomegaly] Ext: [no gross muscle atrophy], [no edema], [no contractures] Neuro: [ CN II-XI grossly intact], [no focal neuro deficits] Psych: [Alert], [oriented], [emotional tearful] - Labs CBC & Chem 7: 12/05/22 07:48 12/05/22 07:48 Labs: Abnormal Lab Results - Last 24 Hours (Table) 12/05/22 Range/Units 07:48 Cholesterol 272.00 H (0.00-200.00) mg/dL HDL Cholesterol 147.00 H (40.00-60.00) mg/dL Assessment and Plan Assessment: Chest pain -Cardiac cause ruled out by cardiology likely due to liver inflammation vs Alcoholic gastritis -NSTEMI ruled out with negative troponins -Cardiology signed off today -Echocardiogram done on 12/05/2022 showed normal ejection fraction of 55-60% mild increased septal wall thickness. Moderately increased posterior wall thickness. Left ventricular hypertrophy. -Aspirin, will hold on statin due to transaminitis - elevated HDL Transaminitis, suspect alcoholic hepatitis trending down steatohepatitis -Continue to monitor CMP -hepatitis profile negative Alcohol dependency with withdrawal symptoms - librium - oral folic acid and thiamine - CIWA today was 12 -Consult psychiatry Depression (she is very emotional today) Denies suicidal thought or ideation -Suspect related to alcohol intoxication -Psychiatry consult today Surrogate decision-maker: DVT prophylaxis: Lovenox Discussed with: Patient, nursing Anticipated discharge date: pending clinical course Anticipated discharge place: home
--- NOTE | 2022-12-06 13:02 | P.CN ---
Psychiatric Consult - . Consult date: 12/06/22 Consult:: 12/06/22 12:27 IDENTIFYING DATA: This patient is a 52-year-old female with a history of alcohol abuse, currently living with her and kids, she lives in a house. She is currently unemployed. REASON FOR REFERRAL: Psychiatry was consulted for depression and alcohol abuse HISTORY OF PRESENT ILLNESS: The patient presented to the hospital on 12/04 for alcohol abuse, history of hypertension. Patient was complaining of intermittent chest pain and claims that she wanted to stop drinking alcohol. She has claimed in the ER that she is drinking about a fifth of vodka a day. Her blood alcohol level was 359 on admission. LFTs were significantly elevated. Urine drug screen was negative. Troponins were negative. Patient was admitted to the medical floors for monitoring of alcohol withdrawal. Patient is claiming that she is feeling nauseous and having significant withdrawal symptoms at this time. She did not have any tremors however did state that she feels very anxious inside feels like her heart is palpitating and also was having headaches and vomiting. She claims that she just started to eat lunch just starting to get an appetite back. She claims that she's been abusing alcohol for about 40 years now. She claims that recently she started getting chest pains. She states that she drinks about a fifth of vodka a day. She claims that she is only been sober for about 90 days now was when she was taking care of her kids. 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 Claims that she is still having anxiety and is endorsing significant depression at this time. She claims that her sleep has been poor. Appetite is gradually improving. Claims that she did not have any other major issues with alcohol no DUIs or legal troubles. She did claim that she was having some vague visual hallucinations of her dog being in the room and somebody possibly sitting beside her when no one was there. Denies any auditory hallucinations . At this time patient denies any suicidal or homical ideations, intent or plan. Thought endorsing any paranoia or delusions. Patients admits to using alcohol as noted above, denies any other recreational drug use. She states that she has been to rehab 2 times in the past. PAST PSYCHIATRIC HISTORY: Patient has a a history of alcohol abuse depression and anxiety. She claims that she has been on several antidepressants in the past and can only remember trazodone at this time. She claims that she was once psychiatrically hospitalized somewhere in [place] about 5 years ago. Patient denies any psychiatric outpatient follow-up. Patient denies any history of suicide attempts in the past. Past Medical History: Hyperlipidemia, Hypertension History of Any Multi-Drug Resistant Organisms: None Reported Past Surgical History: Hysterectomy, Tubal Ligation, Uterine Ablation Additional Past Surgical History / Comment(s): gabriel nguyễn Past Anesthesia/Blood Transfusion Reactions: No Reported Reaction Past Psychological History: Anxiety, Depression Smoking Status: Former smoker Past Alcohol Use History: Daily ALLERGIES: as per EMR. CHEMICAL DEPENDENCY HISTORY: as per HPI. FAMILY PSYCHIATRIC/SUBSTANCE USE HISTORY: She claims that she has a strong family history of alcoholism. SOCIAL HISTORY: Patient was born and raised in the [facility]. She states that she can let high school and some college. 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 Denies any DUIs or any other legal history or imprisonment. She claims that she has 4 kids, she lives in a house with some of her kids and her . She is currently unemployed.. MENTAL STATUS EXAM: General Appearance: Patient appears to have an arm tattoo, mildly disheveled, stated age is alert, attempts to be cooperative. Patient appears to have fair hygiene and grooming wearing hospital gown with poor eye contact. Behavior: Patient is calmly lying in bed without any agitated behavior. Times to cooperate. Constricted. Speech: Patient's speech is fluent and nonpressured. Monotone. Mood/Affect: Patient reports their mood is "depressed and anxious", affect is congruent and constricted Suicidality/Homicidality: Patient denies having any suicidal or homicidal ideation intent or plan. Perceptions: Patient is admitted to visual hallucinations, denies any auditory hallucinations. Though content/process: There is no evidence of any delusional thought content and thought process is linear and goal-directed. Memory and concentration: AOX3, grossly intact for the purposes of this session. Can spell "WORLD" backwards Judgment and insight: poor IMPRESSIONS: depressive disorder NOS Alcohol use disorder severe dependence currently in withdrawal PLAN: -At this time patient DOES NOT meet criteria for inpatient psychiatric admission. -Would recommend the following medication changes/additions: increase librium to 25 mg 4 times a day for etoh withdrawal. start campral 333 mg tid for cravings. lexapro 10 mg daily for mood/anxiety. trazodone 100 mg qhs for insomnia/mood. -CIWA protocol with PRN Ativan for alcohol withdrawal. Continue to monitor vital signs. -renal social worker to provide patient with outpatient mental health/psychiatry resources for appropriate follow up upon discharge -Dairy Farm Worker spoke with patient about substance abuse and the harmful effects on medical and mental health, patient verbally understood and agreed. -renal social worker to provide patient substance use treatment resources including AA/NA meetings in the community. -renal social worker to provide patient with access line number to call for inpatient substance rehab -Communicated plan to patient's nurse -Will continue to follow along tomorrow then likely sign off. -Please contact with any questions. 12/06/22 12:54
[2022-12-06] MEDS: ESCITALOPRAM 10 MG TAB PO SCH (13:16)
[2022-12-06] MEDS: ACAMPROSATE CALCIUM 333 MG TABLET.DR PO SCH ×3 (13:16→21:35)
[2022-12-06] MEDS: traZODone HCL 100 MG TAB PO SCH (21:35)
[2022-12-07] MEDS: PANTOPRAZOLE 40 MG/10 ML VIAL IV SCH (08:45)
[2022-12-07] MEDS: ACAMPROSATE CALCIUM 333 MG TABLET.DR PO SCH ×3 (08:46→21:47)
[2022-12-07] MEDS: THIAMINE 100 MG TAB PO SCH (08:46)
[2022-12-07] MEDS: ASPIRIN 81 MG PO SCH (08:46)
[2022-12-07] MEDS: ESCITALOPRAM 10 MG TAB PO SCH (08:46)
[2022-12-07] MEDS: ENOXAPARIN 40 MG/0.4 ML SYRINGE SQ SCH (08:46)
[2022-12-07] MEDS: chlordiazePOXIDE 25 MG CAP PO SCH ×3 (08:47→21:47)
--- NOTE | 2022-12-07 10:48 | P.PN ---
Subjective Progress Note Date: 12/07/22 Hospital Course: Patient is a 52-year-old female with known alcohol dependency, hypertension, and dyslipidemia who presented to the emergency department with complaints of chest pain for one weeks duration. On arrival she was tachycardic with a heart rate of 100 and elevated blood pressure of 167/88. Laboratory analysis was remarkable for hematocrit 46.5, AST 408, ALT to 52, initial troponin was negative at 0.012. Remainder of labs are unremarkable. EKG is reviewed by myself showed sinus tachycardia with no significant ST-T wave changes and normal intervals. Chest x-ray showed no acute process. Chest pain likely secondary to gastritis in the setting of alcohol use. Echocardiogram showed normal LVEF. Patient also has significant depression. Psychiatry consulted. Subjective: Patient seen and examined at bedside. No acute events overnight. She claims that she feels very groggy since coming to the hospital. She still has minimal chest pain when taking a deep breath. Denies any shortness of breath, palpitations, nausea, vomiting, diarrhea, constipation, or urinary complaints. Pertinent positives and negatives as discussed above, a complete review of systems was performed and all other systems are negative. Vitals Signs Reviewed. General: nontoxic, no distress, appears at stated age, tired appearing Derm: warm, dry Head: atraumatic, normocephalic, symmetric Eyes: EOMI, no lid lag, anicteric sclera Mouth: no lip lesion, mucus membranes moist Cardiovascular: S1S2 reg, no murmur Lungs: CTA bilateral, no rhonchi, no rales , no accessory muscle use Abdominal: soft, nontender to palpation, no guarding, no appreciable organomegaly Ext: no gross muscle atrophy, no edema, no contractures Neuro: CN II-XI grossly intact, no focal neuro deficits Psych: Alert, oriented, appropriate affect Assessment and Plan: Chest pain -Cardiac cause ruled out by cardiology - likely due to hepatitis vs Alcoholic gastritis -Cardiology signed off today -Echocardiogram done on 12/05/2022 showed normal ejection fraction of 55-60% mild increased septal wall thickness. Moderately increased posterior wall thickness. Left ventricular hypertrophy. -Aspirin, will hold on statin due to transaminitis -elevated HDL Transaminitis steatohepatitis -Likely alcohol related -Low Maddrey's discriminant function score, steroid not indicated -Continue to monitor CMP -hepatitis profile negative Alcohol dependency with withdrawal symptoms - psychiatry consult - on librium per psychiatry, will likely need to taper - oral folic acid and thiamine - benzo PRN per CIWA - started on acamprosate Depression -Denies suicidal thought or ideation -Psychiatry consult today -lexapro DVT ppx: lovenox Code status: full code Anticipated discharge place: likely home Anticipated discharge time: pending clincial course Objective - Vital Signs Vital signs: Vital Signs Temp 98 F 12/07/22 08:00 Pulse 72 12/07/22 08:00 Resp 18 12/07/22 08:00 BP 117/90 12/07/22 08:00 Pulse Ox 96 12/07/22 08:00 FiO2 Intake & Output 12/06/22 12/07/22 12/07/22 18:59 06:59 18:59 Intake Total 970 0 Balance 970 0 Intake: Oral 970 0 Other: Voiding Method Toilet Toilet # Voids 2 1 - Labs CBC & Chem 7: 12/05/22 07:48 12/05/22 07:48
--- NOTE | 2022-12-07 11:51 | P.PN ---
Progress Note - Text Progress Note Date: 12/07/22 Interval History: Patient was seen today for psychiatric follow-up regarding patient's depression and also alcohol use and withdrawal. Patient states that her mood is "about the same" however does state that her anxiety has been improving. She states that the Librium has been helping however she claims that she feels that she has little energy and feels "wobbly" when she gets up from the bed to go to the bathroom. She claims that she was able to sleep for about 5-6 hours last night and once remain on the same dose of the trazodone. We spoke more about her laboratory tests, liver function tests and also answered more questions about her medications. She continues to not be interested in going to rehab at this time and wants to return back home upon discharge. She appears to be her directable today and appropriate. States that her appetite is improving a bit. At this time patient denies any suicidal or homical ideations, intent or plan. Patient denies any auditory, visual hallucinations and denies any paranoia or delusions. Patient denies any side effects from the medications and has been compliant with meds. Mental Status Exam: General Appearance: Patient appears to have an arm tattoo, mildly disheveled, stated age is alert, attempts to be cooperative. Patient appears to have fair hygiene and grooming wearing hospital gown with improving eye contact. Behavior: Patient is calmly lying in bed without any agitated behavior. Attempts to be cooperate. Speech: Patient's speech is fluent and nonpressured. Monotone. Mood/Affect: Patient reports their mood is "the same"however imprivng midlly, affect is congruent Suicidality/Homicidality: Patient denies having any suicidal or homicidal ideation intent or plan. Perceptions: Patient is admitted to visual hallucinations, denies any auditory hallucinations. Though content/process: There is no evidence of any delusional thought content and thought process is linear and goal-directed. Memory and concentration: AOX3, grossly intact for the purposes of this session. Judgment and insight: poor, improving mildly IMPRESSIONS: depressive disorder NOS Alcohol use disorder severe dependence currently in withdrawal PLAN: -At this time patient DOES NOT meet criteria for inpatient psychiatric admission. Patient should remain on the medical floors for at least one more day due to her being high risk for medical complicaitons and relapsing if discharged too early without going through withdrawals. -Would recommend the following medication changes/additions: decrease librium to 25 mg 3 times a day for etoh withdrawal and decrease to 10 mg 4 times a day starting tomorrow and continue tapering down. Ideally patient should be tapered off the librium prior to discharge given her high risk of drinking while on librium at however if patient is to be discharged before the taper is completed then only provide 1-2 days max of minimal doses of librium to decrease the risk. continue with campral 333 mg tid for cravings. lexapro 10 mg daily for mood/anxiety. trazodone 100 mg qhs for insomnia/mood. -CIWA protocol with PRN Ativan for alcohol withdrawal. Continue to monitor vital signs. -cement worker to provide patient with outpatient mental health/psychiatry resources for appropriate follow up upon discharge -Craft Demonstrator spoke with patient about substance abuse and the harmful effects on medical and mental health, patient verbally understood and agreed. -cement worker to provide patient substance use treatment resources including AA/NA meetings in the community. -cement worker to provide patient with access line number to call for inpatient substance rehab -Communicated plan to patient's nurse -Will continue to follow along tomorrow and possibly sign off tomorrow. -Please contact with any questions.
[2022-12-07] MEDS ORDERED: chlordiazePOXIDE 25 MG CAP PO SCH (16:00)
[2022-12-07] MEDS: traZODone HCL 100 MG TAB PO SCH (21:46)
[2022-12-08] MEDS: THIAMINE 100 MG TAB PO SCH (09:04)
[2022-12-08] MEDS: ACAMPROSATE CALCIUM 333 MG TABLET.DR PO SCH ×4 (09:04→20:58)
[2022-12-08] MEDS: ESCITALOPRAM 10 MG TAB PO SCH (09:04)
[2022-12-08] MEDS: ASPIRIN 81 MG PO SCH (09:05)
[2022-12-08] MEDS: PANTOPRAZOLE 40 MG/10 ML VIAL IV SCH (09:05)
[2022-12-08] MEDS: ENOXAPARIN 40 MG/0.4 ML SYRINGE SQ SCH (09:05)
--- NOTE | 2022-12-08 12:24 | P.PN ---
Subjective Progress Note Date: 12/08/22 Hospital Course: Patient is a 52-year-old female with known alcohol dependency, hypertension, and dyslipidemia who presented to the emergency department with complaints of chest pain for one weeks duration. On arrival she was tachycardic with a heart rate of 100 and elevated blood pressure of 167/88. Laboratory analysis was remarkable for hematocrit 46.5, AST 408, ALT to 52, initial troponin was negative at 0.012. Remainder of labs are unremarkable. EKG is reviewed by myself showed sinus tachycardia with no significant ST-T wave changes and normal intervals. Chest x-ray showed no acute process. Chest pain likely secondary to gastritis in the setting of alcohol use. Echocardiogram showed normal LVEF. Cardiology consulted, now signed off. Patient also has significant depression. Psychiatry consulted. Patient started on Librium taper. Subjective: Patient seen and examined at bedside. No acute events overnight. She claims that she feels similar grogginess as yesterday. Denies any significant chest pain, shortness of breath, palpitations, nausea, vomiting, diarrhea, constipation, or urinary complaints. Pertinent positives and negatives as discussed above, a complete review of systems was performed and all other systems are negative. Vitals Signs Reviewed. General: nontoxic, no distress, appears at stated age, tired appearing Derm: warm, dry Head: atraumatic, normocephalic, symmetric Eyes: EOMI, no lid lag, anicteric sclera Mouth: no lip lesion, mucus membranes moist Cardiovascular: S1S2 reg, no murmur Lungs: CTA bilateral, no rhonchi, no rales , no accessory muscle use Abdominal: soft, nontender to palpation, no guarding, no appreciable or ganomegaly Ext: no gross muscle atrophy, no edema, no contractures Neuro: CN II-XI grossly intact, no focal neuro deficits Psych: Alert, oriented, appropriate affect Assessment and Plan: Alcohol dependency with withdrawal symptoms - psychiatry consult - on librium per psychiatry, continue the taper, will go on 10 mg twice a day tomorrow, and discontinue on Saturday - oral folic acid and thiamine - benzo PRN per CIWA - started on acamprosate Chest pain -Cardiac cause ruled out by cardiology - likely due to hepatitis vs Alcoholic gastritis -Cardiology signed off today -Echocardiogram done on 12/05/2022 showed normal ejection fraction of 55-60% mild increased septal wall thickness. Moderately increased posterior wall thickness. Left ventricular hypertrophy. -Aspirin, will hold on statin due to transaminitis -elevated HDL Transaminitis steatohepatitis -Likely alcohol related -Low Maddrey's discriminant function score, steroid not indicated -Continue to monitor CMP -hepatitis profile negative Depression -Denies suicidal thought or ideation -Psychiatry consult today -lexapro DVT ppx: lovenox Code status: full code Anticipated discharge place: likely home Anticipated discharge time: Likely Saturday after Librium taper is completed Objective - Vital Signs Vital signs: Vital Signs Temp 97.7 F 12/08/22 09:09 Pulse 73 12/08/22 09:09 Resp 17 12/08/22 09:09 BP 127/87 12/08/22 09:09 Pulse Ox 92 L 12/08/22 09:09 FiO2 Intake & Output 12/07/22 12/08/22 12/08/22 18:59 06:59 18:59 Intake Total 0 970 Balance 0 970 Intake: Oral 0 970 Other: Voiding Method Toilet Toilet # Voids 1 1 - Labs CBC & Chem 7: 12/05/22 07:48 12/05/22 07:48
[2022-12-08] MEDS: traZODone HCL 100 MG TAB PO SCH (20:40)
--- NOTE | 2022-12-08 21:02 | P.PN ---
Progress Note - Text Progress Note Date: 12/08/22 Interval History: Patient was seen today for psychiatric follow-up regarding patient's depression and also alcohol use and withdrawal. Patient states that her mood is "doing better". She states that the Librium has been helping but continues to feel "wobbly" when she gets up from the bed to go to the bathroom. VSS and CIWA has been 0 (pt not needed any Ativan in 24 hours). She claims that she was able to sleep better with trazodone. We spoke more about her laboratory tests, liver function tests and also answered more questions about her medications. She continues to not be interested in going to rehab at this time and wants to return back home upon discharge. States that her appetite is improving a bit. At this time patient denies any suicidal or homicidal ideations, intent or plan. Patient denies any auditory, visual hallucinations and denies any paranoia or delusions. Patient denies any side effects from the medications and has been compliant with meds. Mental Status Exam: General Appearance: Patient appears to have an arm tattoo, mildly disheveled, stated age is alert, attempts to be cooperative. Patient appears to have fair hygiene and grooming wearing hospital gown with improving eye contact. Behavior: Patient is calmly lying in bed without any agitated behavior. Attempts to be cooperate. Speech: Patient's speech is fluent and nonpressured. Monotone. Mood/Affect: Patient reports their mood is "the same"however imprivng midlly, affect is congruent Suicidality/Homicidality: Patient denies having any suicidal or homicidal ideation intent or plan. Perceptions: Patient is admitted to visual hallucinations, denies any auditory hallucinations. Though content/process: There is no evidence of any delusional thought content and thought process is linear and goal-directed. Memory and concentration: AOX3, grossly intact for the purposes of this session. Judgment and insight: poor, improving mildly IMPRESSIONS: depressive disorder NOS Alcohol use disorder severe dependence currently in withdrawal PLAN: -At this time patient DOES NOT meet criteria for inpatient psychiatric admission. -Would recommend the following medication changes/additions: Decrease Librium to 10 mg TID starting tomorrow and continue tapering down. Ideally patient should be tapered off the librium prior to discharge given her high risk of drinking while on librium at however if patient is to be discharged before the taper is completed then only provide 1-2 days max of minimal doses of librium to decrease the risk. Increase campral to 666 mg tid for cravings. Continue lexapro 10 mg daily for mood/anxiety. trazodone 100 mg qhs for insomnia/mood. -CIWA protocol with PRN Ativan for alcohol withdrawal. Continue to monitor vital signs. -smokehouse worker to provide patient with outpatient mental health/psychiatry resources for appropriate follow up upon discharge -Ocean Freight Forwarder spoke with patient about substance abuse and the harmful effects on medical and mental health, patient verbally understood and agreed. -smokehouse worker to provide patient substance use treatment resources including AA/NA meetings in the community. -smokehouse worker to provide patient with access line number to call for inpatient substance rehab -Communicated plan to patient's nurse -Will continue to follow along tomorrow and possibly sign off tomorrow. -Please contact with any questions.
[2022-12-09] MEDS: PANTOPRAZOLE 40 MG TABLET PO SCH (06:22)
[2022-12-09] MEDS: ACAMPROSATE CALCIUM 333 MG TABLET.DR PO SCH ×3 (09:20→20:49)
[2022-12-09] MEDS: ASPIRIN 81 MG PO SCH (09:20)
[2022-12-09] MEDS: ENOXAPARIN 40 MG/0.4 ML SYRINGE SQ SCH (09:20)
[2022-12-09] MEDS: THIAMINE 100 MG TAB PO SCH (09:20)
[2022-12-09] MEDS: ESCITALOPRAM 10 MG TAB PO SCH (09:21)
[2022-12-09] MEDS: HYDROCORTISONE 1% CREAM 30 GM TUBE TOPICAL PRN ×2 (11:27→16:16)
--- NOTE | 2022-12-09 13:24 | P.PN ---
Subjective Progress Note Date: 12/09/22 Hospital Course: Patient is a 52-year-old female with known alcohol dependency, hypertension, and dyslipidemia who presented to the emergency department with complaints of chest pain for one weeks duration. On arrival she was tachycardic with a heart rate of 100 and elevated blood pressure of 167/88. Laboratory analysis was remarkable for hematocrit 46.5, AST 408, ALT to 52, initial troponin was negative at 0.012. Remainder of labs are unremarkable. EKG is reviewed by myself showed sinus tachycardia with no significant ST-T wave changes and normal intervals. Chest x-ray showed no acute process. Chest pain likely secondary to gastritis in the setting of alcohol use. Echocardiogram showed normal LVEF. Cardiology consulted, now signed off. Patient also has significant depression. Psychiatry consulted. Patient started on Librium taper. Subjective: Patient seen and examined at bedside. No acute events overnight. She claims that she feels similar grogginess as yesterday. Denies any significant chest pain, shortness of breath, palpitations, nausea, vomiting, diarrhea, constipation, or urinary complaints. Pertinent positives and negatives as discussed above, a complete review of systems was performed and all other systems are negative. Vitals Signs Reviewed. General: nontoxic, no distress, appears at stated age, tired appearing Derm: warm, dry Head: atraumatic, normocephalic, symmetric Eyes: EOMI, no lid lag, anicteric sclera Mouth: no lip lesion, mucus membranes moist Cardiovascular: S1S2 reg, no murmur Lungs: CTA bilateral, no rhonchi, no rales , no accessory muscle use Abdominal: soft, nontender to palpation, no guarding, no appreciable or ganomegaly Ext: no gross muscle atrophy, no edema, no contractures Neuro: CN II-XI grossly intact, no focal neuro deficits Psych: Alert, oriented, appropriate affect Assessment and Plan: Alcohol dependency with withdrawal symptoms - psychiatry consult - on librium per psychiatry, continue the taper, likely discharge tomorrow - oral folic acid and thiamine - benzo PRN per CIWA - on acamprosate Contact irritant dermatitis -Topical steroids Chest pain -Cardiac cause ruled out by cardiology - likely due to hepatitis vs Alcoholic gastritis -Cardiology signed off today -Echocardiogram done on 12/05/2022 showed normal ejection fraction of 55-60% mild increased septal wall thickness. Moderately increased posterior wall thickness. Left ventricular hypertrophy. -Aspirin, will hold on statin due to transaminitis -elevated HDL Transaminitis steatohepatitis -Likely alcohol related -Low Maddrey's discriminant function score, steroid not indicated -Continue to monitor CMP -hepatitis profile negative Depression -Denies suicidal thought or ideation -Psychiatry consult today -lexapro DVT ppx: lovenox Code status: full code Anticipated discharge place: likely home Anticipated discharge time: Likely Saturday after Librium taper is completed Objective - Vital Signs Vital signs: Vital Signs Temp 97.9 F 12/09/22 08:00 Pulse 70 12/09/22 08:00 Resp 17 12/09/22 08:00 BP 137/80 12/09/22 08:00 Pulse Ox 93 L 12/09/22 08:00 FiO2 Intake & Output 12/08/22 12/09/22 12/09/22 18:59 06:59 18:59 Intake Total 180 118 Balance 180 118 Intake: Oral 180 118 Other: Voiding Method Toilet Toilet # Voids 1 2 - Labs CBC & Chem 7: 12/05/22 07:48 12/05/22 07:48
--- NOTE | 2022-12-09 17:46 | P.PN ---
Progress Note - Text Progress Note Date: 12/09/22 Interval History: Patient was seen today for psychiatric follow-up regarding patient's depression and also alcohol use and withdrawal. Patient states that her mood is "tired". She states that the Librium has been helping and denies feeling "wobbly". VSS and CIWA has been 0 (pt not needed any Ativan in 24 hours). She claims that she was able to sleep better with trazodone. We discussed Campral further. She continues to not be interested in going to rehab at this time and wants to return back home upon discharge despite discussion. States that her appetite has improved. At this time patient denies any suicidal or homicidal ideations, intent or plan. Patient denies any auditory, visual hallucinations and denies any paranoia or delusions. Patient denies any side effects from the medications and has been compliant with meds. Mental Status Exam: General Appearance: Patient appears to have an arm tattoo, stated age is alert, attempts to be cooperative. Patient appears to have fair hygiene and grooming wearing hospital gown with improving eye contact. Somnolent Behavior: Patient is calmly lying in bed without any agitated behavior. Attempts to be cooperate. Speech: Patient's speech is fluent and nonpressured. Monotone. Mood/Affect: Patient reports their mood is "tired", affect is congruent Suicidality/Homicidality: Patient denies having any suicidal or homicidal ideation intent or plan. Perceptions: Patient denies visual hallucinations, denies any auditory halluci nations. Though content/process: There is no evidence of any delusional thought content and thought process is linear and goal-directed. Memory and concentration: AOX3, grossly intact for the purposes of this session. Judgment and insight: poor, improving mildly IMPRESSIONS: Depressive disorder NOS Alcohol use disorder severe dependence currently in withdrawal PLAN: -At this time patient DOES NOT meet criteria for inpatient psychiatric admission. -Would recommend the following medication changes/additions: Decrease Librium to 5 mg BID and may discontinue afterwards. Does not need to be discharged on this as long as she does not display withdrawal S/S Continue campral to 666 mg tid for cravings. Continue lexapro 10 mg daily for mood/anxiety. trazodone 100 mg qhs for insomnia/mood. -CIWA protocol with PRN Ativan for alcohol withdrawal. Continue to monitor vital signs. -chrome worker to provide patient with outpatient mental health/psychiatry resources for appropriate follow up upon discharge -Manager Clinical Pharmacy spoke with patient about substance abuse and the harmful effects on medical and mental health, patient verbally understood and agreed. -chrome worker to provide patient substance use treatment resources including AA/NA meetings in the community. -chrome worker to provide patient with access line number to call for inpatient substance rehab -Communicated plan to patient's nurse -Psychiatry signing off -Please contact with any questions.
[2022-12-09] MEDS: traZODone HCL 100 MG TAB PO SCH (20:49)
[2022-12-09] MEDS: chlordiazePOXIDE 5 MG CAPSULE PO SCH (20:49)
[2022-12-10] MEDS: PANTOPRAZOLE 40 MG TABLET PO SCH (05:54)
[2022-12-10 07:47] VITALS: BP 146/87; PULSE 68; RESP 16; TEMP 97.3
[2022-12-10] MEDS: ENOXAPARIN 40 MG/0.4 ML SYRINGE SQ SCH (08:53)
[2022-12-10] MEDS: ASPIRIN 81 MG PO SCH (08:53)
[2022-12-10] MEDS: ACAMPROSATE CALCIUM 333 MG TABLET.DR PO SCH (08:53)
[2022-12-10] MEDS: THIAMINE 100 MG TAB PO SCH (08:54)
[2022-12-10] MEDS: ESCITALOPRAM 10 MG TAB PO SCH (08:54)
[2022-12-10] MEDS: chlordiazePOXIDE 5 MG CAPSULE PO SCH (08:54)
--- NOTE | 2022-12-10 13:43 | P.DS ---
Providers Date of admission: 12/04/22 16:51 Expected date of discharge: 12/10/22 Attending physician: Michelle Car DO Consults: 12/06/22 10:04 Consult Physician Routine Consulting Provider: Daniele Mann Consult Reason/Comments: Depression with alocohol dependance Do you want consulting provider notified?: Yes Primary care physician: Stated None Hospital Course: Discharge Diagnosis: Alcohol dependency with withdrawal symptoms Contact irritant dermatitis Transaminitis Steatohepatitis Depression Hospital Course: Patient is a 52-year-old female with known alcohol dependency, hypertension, and dyslipidemia who presented to the emergency department with complaints of chest pain for one weeks duration. On arrival she was tachycardic with a heart rate of 100 and elevated blood pressure of 167/88. Laboratory analysis was remarkable for hematocrit 46.5, AST 408, ALT to 52, initial troponin was negative at 0.012. Remainder of labs are unremarkable. EKG is reviewed by myself showed sinus tachycardia with no significant ST-T wave changes and normal intervals. Chest x-ray showed no acute process. Chest pain likely secondary to gastritis in the setting of alcohol use. Echocardiogram showed normal LVEF. Cardiology consulted. No other interventions. Patient also has significant depression. Psychiatry consulted. Patient improved on Librium taper. Also started trazadone, lexapro, and campral per psychiatry. Patient seen and examined at bedside. Vital signs reviewed and stable. General: nontoxic, no distress, appears at stated age Derm: warm, dry Head: atraumatic, normocephalic, symmetric Eyes: EOMI, no lid lag, anicteric sclera Mouth: no lip lesion, mucus membranes moist Cardiovascular: S1S2 reg, no murmur Lungs: CTA bilateral, no rhonchi, no rales , no accessory muscle use Abdominal: soft, nontender to palpation, no guarding, no appreciable organomegaly Ext: no gross muscle atrophy, no edema, no contractures Neuro: CN II-XI grossly intact, no focal neuro deficits Psych: Alert, oriented, appropriate affect A total of 33 minutes of time were spent preparing this complex discharge summary. Patient was discharged on 12/10/22 at 10:44. Patient Condition at Discharge: Stable Plan - Discharge Summary Discharge Rx Participant: Yes New Discharge Prescriptions: New Aspirin 81 mg PO DAILY #30 tab Acamprosate Calcium [Campral] 666 mg PO TID #90 tab chlordiazePOXIDE HCl [Librium] 5 mg PO DAILY #1 cap Melatonin 3 mg PO HS PRN #30 tab PRN Reason: Insomnia Pantoprazole [Protonix] 40 mg PO AC-BRKFST #30 tab traZODone HCL [Desyrel] 100 mg PO HS #30 tab Escitalopram [Lexapro] 10 mg PO DAILY #30 tab Thiamine [Vitamin B-1] 100 mg PO DAILY #30 tab Discharge Medication List Acamprosate Calcium [Campral] 666 mg PO TID #90 tab 12/10/22 [Rx] Aspirin 81 mg PO DAILY #30 tab 12/10/22 [Rx] Escitalopram [Lexapro] 10 mg PO DAILY #30 tab 12/10/22 [Rx] Melatonin 3 mg PO HS PRN #30 tab 12/10/22 [Rx] Pantoprazole [Protonix] 40 mg PO AC-BRKFST #30 tab 12/10/22 [Rx] Thiamine [Vitamin B-1] 100 mg PO DAILY #30 tab 12/10/22 [Rx] chlordiazePOXIDE HCl [Librium] 5 mg PO DAILY #1 cap 12/10/22 [Rx] traZODone HCL [Desyrel] 100 mg PO HS #30 tab 12/10/22 [Rx] Follow up Appointment(s)/Referral(s): Han Marshall MD [STAFF PHYSICIAN] - 3 Weeks (CARDIOLOGY'S OFFICE WILL CONTACT YOU WITH APPOINTMENT DATE AND TIME.) None,Stated [Primary Care Provider] - 1-2 days Patient Instructions/Handouts: Chlordiazepoxide (By mouth), Trazodone (By mouth), Aspirin (By mouth), Thiamine (By mouth), Pantoprazole (By mouth), Escitalopram (By mouth), Acamprosate (By mouth), Depression (DC), Abuse of Alcohol (DC) Activity/Diet/Wound Care/Special Instructions: Please see a PCP as soon as possible. Discharge/Stand Alone Forms: AA Meetings [facility], Who Do I Call?, Community Resources, Outpatient Counseling, Inp Substance Abuse Facilities, Personal Artists' Booking Representative Discharge Disposition: HOME SELF-CARE
== END 2022-12-10 15:30 | disposition home or self-care (01) ==
LOC: EC 12:53 → 3SCARD 16:51 → INTOOBSV 16:51 → 3SCARD 17:18 → 6NMEDSUR 12-08 21:50 → UNDODISIN 12-10 12:27
PROVIDERS: ADMIT Internal Medicine; ATTEND Internal Medicine
PROC: HZ2ZZZZ Detoxification Services for Substance Abuse Treatment (ICD-10-PCS; principal; 2022-12-04)
DX: R07.89 Other chest pain (principal); F10.239 Alcohol dependence with withdrawal, unspecified; F32.A Depression, unspecified; K76.0 Fatty (change of) liver, not elsewhere classified; R74.01 Elevation of levels of liver transaminase levels; E78.5 Hyperlipidemia, unspecified; I11.9 Hypertensive heart disease without heart failure; L24.9 Irritant contact dermatitis, unspecified cause; R00.0 Tachycardia, unspecified; G47.00 Insomnia, unspecified; F41.9 Anxiety disorder, unspecified; Z91.14 Patient's other noncompliance with medication regimen; Y90.8 Blood alcohol level of 240 mg/100 ml or more; Z88.1 Allergy status to other antibiotic agents; Z88.2 Allergy status to sulfonamides; Z87.891 Personal history of nicotine dependence; Z71.41 Alcohol abuse counseling and surveillance of alcoholic; Z90.710 Acquired absence of both cervix and uterus; Z98.51 Tubal ligation status; Z98.890 Other specified postprocedural states; Z82.49 Family history of ischemic heart disease and other diseases of the circulatory system; Z81.1 Family history of alcohol abuse and dependence
CPT/HCPCS: 96376 ×5; 96361 ×3; 96372 ×7; 96375; 82075; 96374; 99285; 36415; 93005; 93306; 80061; 80053 ×2; 80074; 84443 ×2; 82150; 83690; 83735; 84484; 85025; 85027; 85610; 81003; 84702; 80306; 83036; 71046; 76705; G0378 ×7; G0480; J2060 ×3; J3411; J1650 ×6; C9113 ×4; 80320

== ENCOUNTER 2023-04-23 12:47 | Observation (INO) | payer OTHER ==
--- NOTE | 2023-04-23 13:00 | ED ---
General Adult HPI - General Source: RN notes reviewed <Aliyah Garrison - Last Filed: 04/23/23 12:58> - General Source: patient, RN notes reviewed, old records reviewed <Tapan Crane - Last Filed: 04/23/23 15:17> - General Stated complaint: Withdrawal Time Seen by Provider: 04/23/23 12:58 - History of Present Illness Initial comments: 53-year-old female presents to the emergency department accompanied by friend for EtOH intoxication. (Aliyah Garrison) 53-year-old female presents for evaluation of alcohol intoxication and depression. Patient states that she had contacted multiple rehabilitation centers but there was various hurdles limiting the availability of these loca tions. Patient admits to alcohol consumption today. She drinks daily. She does admit to depression . No vomiting. (Tapan Crane) - Related Data Previous Rx's Medication Instructions Recorded Acamprosate Calcium [Campral] 666 mg PO TID #90 tab 12/10/22 Aspirin 81 mg PO DAILY #30 tab 12/10/22 Escitalopram [Lexapro] 10 mg PO DAILY #30 tab 12/10/22 Melatonin 3 mg PO HS PRN #30 tab 12/10/22 Pantoprazole [Protonix] 40 mg PO AC-BRKFST #30 tab 12/10/22 Thiamine [Vitamin B-1] 100 mg PO DAILY #30 tab 12/10/22 chlordiazePOXIDE HCl [Librium] 5 mg PO DAILY #1 cap 12/10/22 traZODone HCL [Desyrel] 100 mg PO HS #30 tab 12/10/22 clindamycin HCL 300 mg PO QID #40 cap 01/22/23 Allergies Allergy/AdvReac Type Severity Reaction Status Date / Time bacitracin Allergy Rash/Hives Verified 04/23/23 13:08 Sulfa (Sulfonamide Allergy Rash/Hives Verified 04/23/23 13:08 Antibiotics) Review of Systems ROS Other: All systems not noted in ROS Statement are negative. <Aliyah Garrison - Last Filed: 04/23/23 12:58> ROS Other: All systems not noted in ROS Statement are negative. <Tapan Crane - Last Filed: 04/23/23 15:17> ROS Statement: Those systems with pertinent positive or pertinent negative responses have been documented in the HPI. Past Medical History Past Medical History: Hyperlipidemia, Hypertension History of Any Multi-Drug Resistant Organisms: None Reported Past Surgical History: Hysterectomy, Tubal Ligation, Uterine Ablation Additional Past Surgical History / Comment(s): gabriel nguyễn Past Anesthesia/Blood Transfusion Reactions: No Reported Reaction Past Psychological History: Anxiety, Depression Smoking Status: Former smoker Past Alcohol Use History: Daily Past Drug Use History: None Reported - Past Family History Mother Family Medical History: No Reported History Father Family Medical History: Coronary Artery Disease (CAD) <Aliyah Garrison - Last Filed: 04/23/23 12:58> General Exam <Aliyah Garrison - Last Filed: 04/23/23 12:58> General appearance: alert, appears intoxicated, anxious Head exam: Present: atraumatic, normocephalic Eye exam: Present: normal appearance, PERRL Respiratory exam: Present: normal lung sounds bilaterally. Absent: respiratory distress, wheezes Cardiovascular Exam: Present: regular rate, normal rhythm GI/Abdominal exam: Absent: distended Extremities exam: Present: normal inspection Neurological exam: Present: alert, oriented X3, CN II-XII intact. Absent: motor sensory deficit Psychiatric exam: Present: depressed, anxious Skin exam: Present: warm, dry, intact <Tapan Crane - Last Filed: 04/23/23 15:17> - General Exam Comments Initial Comments: Visual Physical Exam Vital signs reviewed General: Well-appearing, nontoxic, no acute distress. Head: Normocephalic, atraumatic Eyes: PERRLA, EOMI ENT: Airway patent Chest: Nonlabored breathing Skin: No visual rash, normal skin tone Neuro: Alert and oriented 3 Musculoskeletal: No gross abnormalities (Aliyah Garrison) Course <Tapan Crane - Last Filed: 04/23/23 15:17> Vital Signs 04/23/23 13:05 Temperature 98.0 F Pulse Rate 95 Respiratory 20 Rate Blood Pressure 167/107 O2 Sat by Pulse 97 Oximetry - Reevaluation(s) Reevaluation #1: 04/23/23 15:[address] Florentino (Tapan Crane) Medical Decision Making - Lab Data Result diagrams: 04/23/23 13:42 04/23/23 13:42 <Tapan Crane N - Last Filed: 04/23/23 15:17> - Medical Decision Making Was pt. sent in by a medical professional or institution (MAURY Oreilly, MODELING DIRECTOR, urgent care, hospital, or snf...) When possible be specific @ -No Did you speak to anyone other than the patient for history (EMS, parent, family, police, friend...)? What history was obtained from this source @ -Patient is accompanied by close friend Did you review nursing and triage notes (agree or disagree)? Why? @ -I reviewed and agree with nursing and triage notes Were old charts reviewed (outside hosp., previous admission, EMS record, old EKG, old radiological studies, urgent care reports/EKG's, snf records)? Report findings @ -Previous admissions with alcohol intoxication Differential Diagnosis (chest pain, altered mental status, abdominal pain women, abdominal pain men, vaginal bleeding, weakness, fever, dyspnea, syncope, headache, dizziness, GI bleed, back pain, seizure, CVA, palpatations, mental health, musculoskeletal)? @ -Alcohol intoxication, alcohol withdrawal, delirium tremens EKG interpreted by me (3pts min.). @ -As above X-rays interpreted by me (1pt min.). @ -None done CT interpreted by me (1pt min.). @ -None done U/S interpreted by me (1pt. min.). @ -None done What testing was considered but not performed or refused? (CT, X-rays, U/S, labs)? Why? @ -None What meds were considered but not given or refused? Why? @ -None Did you discuss the management of the patient with other professionals (professionals i.e. MAURY Oreilyl, MODELING DIRECTOR, lab, RT, psych nurse, social media intern, experienced truck driver, teacher, hospital chief financial officer, protective services case worker)? Give summary @ -[Case discussed with Dr. Florentino Was smoking cessation discussed for >3mins.? @ -No Was critical care preformed (if so, how long)? @ -No Were there social determinants of health that impacted care today? How? (Homelessness, low income, unemployed, alcoholism, drug addiction, transportation, low edu. Level, literacy, decrease access to med. care, prison, rehab)? @ -[Alcoholism Was there de-escalation of care discussed even if they declined (Discuss DNR or withdrawal of care, Hospice)? DNR status @ -No What co-morbidities impacted this encounter? (DM, HTN, Smoking, COPD, CAD, Cancer, CVA, ARF, Chemo, Hep., AIDS, mental health diagnosis, sleep apnea, morb id obesity)? @ -[Alcoholism Was patient admitted / discharged? Hospital course, mention meds given and route, prescriptions, significant lab abnormalities, going to OR and other pertinent info. @ -[53-year-old female presenting with alcohol intoxication and concern for withdrawal. Patient states that she wishes to abstain from alcohol. Her alcohol level is 488. She will benefit from medical detoxification Undiagnosed new problem with uncertain prognosis? @ -No Drug Therapy requiring intensive monitoring for toxicity (Heparin, Nitro, Insulin, Cardizem)? @ -No Were any procedures done? @ -No Diagnosis/symptom? @ -[Alcohol intoxication with concern for withdrawal Acute, or Chronic, or Acute on Chronic? @ -Chronic Uncomplicated (without systemic symptoms) or Complicated (systemic symptoms)? @ -[Complicated Side effects of treatment? @ -No Exacerbation, Progression, or Severe Exacerbation? @ -No Poses a threat to life or bodily function? How? (Chest pain, [place], [place], pneumonia, PE, COPD, DKA, ARF, appy, cholecystitis, CVA, Diverticulitis, Homicidal, Suicidal, threat to staff... and all critical care pts) @ -[Yes, withdrawal seizure, delirium tremens (Tapan Crane) - Lab Data Lab Results 04/23/23 04/23/23 04/23/23 Range/Units 13:42 13:42 13:52 WBC 4.9 (3.8-10.6) k/uL RBC 5.14 (3.80-5.40) m/uL Hgb 15.6 (11.4-16.0) gm/dL Hct 48.0 H (34.0-46.0) % MCV 93.4 (80.0-100.0) fL MCH 30.3 (25.0-35.0) pg MCHC 32.4 (31.0-37.0) g/dL RDW 16.5 H (11.5-15.5) % Plt Count 166 (150-450) k/uL MPV 7.1 Neutrophils % 65 % Lymphocytes % 29 % Monocytes % 4 % Eosinophils % 1 % Basophils % 0 % Neutrophils # 3.2 (1.3-7.7) k/uL Lymphocytes # 1.4 (1.0-4.8) k/uL Monocytes # 0.2 (0-1.0) k/uL Eosinophils # 0.0 (0-0.7) k/uL Basophils # 0.0 (0-0.2) k/uL Anisocytosis Slight Sodium 146 H (137-145) mmol/L Potassium 4.3 (3.5-5.1) mmol/L Chloride 101 (98-107) mmol/L Carbon Dioxide 26 (22-30) mmol/L Anion Gap 19 mmol/L BUN 14 (7-17) mg/dL Creatinine 0.48 L (0.52-1.04) mg/dL Est GFR (CKD-EPI)AfAm >90 (>60 ml/min/1.73 sqM) Est GFR (CKD-EPI)NonAf >90 (>60 ml/min/1.73 sqM) Glucose 85 (74-99) mg/dL Calcium 8.9 (8.4-10.2) mg/dL Total Bilirubin 0.6 (0.2-1.3) mg/dL AST 57 H (14-36) U/L ALT 37 H (4-34) U/L Alkaline Phosphatase 126 (38-126) U/L Total Protein 7.7 (6.3-8.2) g/dL Albumin 4.8 (3.5-5.0) g/dL Urine Color Light Yellow Urine Appearance Cloudy H (Clear) Urine pH 6.5 (5.0-8.0) Ur Specific [place] 1.007 (1.001-1.035) Urine Protein Negative (Negative) Urine Glucose (UA) Negative (Negative) Urine Ketones 1+ H (Negative) Urine Blood Negative (Negative) Urine Nitrite Negative (Negative) Urine Bilirubin Negative (Negative) Urine Urobilinogen <2.0 (<2.0) mg/dL Ur Leukocyte Esterase Moderate H (Negative) Urine RBC 2 (0-5) /hpf Urine WBC 30 H (0-5) /hpf Ur Squamous Epith Cells 1 (0-4) /hpf Urine Bacteria Rare H (None) /hpf Urine Mucus Rare H (None) /hpf Serum Alcohol 488 H* mg/dL Disposition <Aliyah Garrison - Last Filed: 04/23/23 12:58> Is patient prescribed a controlled substance at d/c from ED?: No Time of Disposition: 15:16 <Tapan Crane - Last Filed: 04/23/23 15:17> Clinical Impression: Alcoholic intoxication, Alcohol withdrawal syndrome, Depressed Disposition: ADMITTED IP TO THIS HOSP Condition: Serious Referrals: Henok Florentino MD [Primary Care Provider] - 1-2 days
[2023-04-23 14:12] LABS: Appearance,Urine Cloudy (Clear); Bacteria,Urine Rare /hpf; Bilirubin,Urine Negative (Negative); Blood,Urine Negative (Negative); Color,Urine Light Yellow; Glucose,Urine (UA) Negative (Negative); Ketones,Urine 1+ (Negative); Leukocyte Esterase,Urine Moderate (Negative); Mucus,Urine Rare /hpf; Nitrite,Urine Negative (Negative); PH, Urine 6.5 (5.0-8.0); Protein,Urine Negative (Negative); RBC,Urine 2 /hpf (0-5); Specific Gravity,Urine 1.007 (1.001-1.035); Squamous Epithelial Cell,Urine 1 /hpf (0-4); Urobilinogen,Urine <2.0 mg/dL (<2.0); WBC,Urine 30 /hpf (0-5)
[2023-04-23 14:20] LABS: ALT 37 U/L (4-34); AST 57 U/L (14-36); African American GFR (CKD) >90 (>60 ml/min/1.73 sqM); Albumin 4.8 g/dL (3.5-5.0); Alkaline Phosphatase 126 U/L (38-126); Anion Gap 19 mmol/L; Blood Urea Nitrogen 14 mg/dL (7-17); Calcium 8.9 mg/dL (8.4-10.2); Carbon Dioxide 26 mmol/L (22-30); Chloride 101 mmol/L (98-107); Glucose 85 mg/dL (74-99); Non-African American GFR(CKD) >90 (>60 ml/min/1.73 sqM); Potassium 4.3 mmol/L (3.5-5.1); Sodium 146 mmol/L (137-145); Total Bilirubin 0.6 mg/dL (0.2-1.3); Total Protein 7.7 g/dL (6.3-8.2)
[2023-04-23 14:22] LABS: Anisocytosis Slight; Basophils % (A) 0 %; Eosinophils % (A) 1 %; HGB 15.6 gm/dL (11.4-16.0); Lymphocytes # (A) 1.4 k/uL (1.0-4.8); Lymphocytes % (A) 29 %; MCH 30.3 pg (25.0-35.0); MCHC 32.4 g/dL (31.0-37.0); MCV 93.4 fL (80.0-100.0); Mean Platelet Volume 7.1; Monocytes # (A) 0.2 k/uL (0-1.0); Monocytes % (A) 4 %; Neutrophils # (A) 3.2 k/uL (1.3-7.7); Neutrophils % (A) 65 %; Platelet Count 166 k/uL (150-450); RBC 5.14 m/uL (3.80-5.40); RDW 16.5 % (11.5-15.5); WBC 4.9 k/uL (3.8-10.6)
[2023-04-23 14:30] LABS: Alcohol 488 mg/dL
[2023-04-23] MEDS ORDERED: THIAMINE 100 MG/ML 2 ML VIAL IM STA (15:17)
[2023-04-23] MEDS ORDERED: LORazepam 2 MG/ML INJ IV PRN ×2 (15:17)
[2023-04-23] MEDS ORDERED: NALOXONE 0.4 MG/ML 1 ML VIAL IV PRN (15:18)
[2023-04-23] MEDS: SODIUM CHLORIDE 0.9% 1,000 ML IV SCH (16:30)
[2023-04-23] MEDS: LORazepam 2 MG/ML INJ IV PRN ×2 (16:30→23:35)
[2023-04-24] MEDS: LORazepam 2 MG/ML INJ IV PRN ×2 (03:10→08:51)
[2023-04-24] MEDS: SODIUM CHLORIDE 0.9% 1,000 ML IV SCH ×2 (04:05→18:09)
[2023-04-24] MEDS: THIAMINE 100 MG TAB PO SCH (08:51)
[2023-04-24] MEDS ORDERED: KETOROLAC 15 MG/ML 1 ML VIAL IVP PRN (10:11)
[2023-04-24] MEDS ORDERED: ONDANSETRON 4 MG/2 ML VIAL IVP PRN (10:12)
[2023-04-24] MEDS ORDERED: PARoxetine 20 MG TAB PO STA (13:56)
--- NOTE | 2023-04-24 14:17 | P.CN ---
Psychiatric Consult - . Consult date: 04/24/23 Consult:: 04/24/23 14:14 IDENTIFYING DATA: This patient is a , unemployed, 53-year-old female with significant history of alcohol use disorder and anxiety who presents for hospital on 04/23/2023 for acute alcohol intoxication and depression. HISTORY OF PRESENT ILLNESS: The patient presented to the hospital on 04/23/2023, presenting to the hospital accompanied by her friend for acute alcohol intoxication and depression. Psychiatry has been consulted for evaluation of depression and alcohol use disorder. Upon evaluation by this provider, the patient reports that she has been depressed for the past 30 years. She states that she was here in the hospital this past November and was discharged on a regimen of campral, Lexapro, and trazodone. The patient reports that she was doing well and was sober for 77 days prior to relapsing on February 09. The patient reports that she stopped taking her medications because she felt that things were already better. She does realize that her medications were working and that she should've continue taking her medications. She reports that she has been drinking up to a fifth of liquor per day. She does endorse significant symptoms of depression including sadness, anhedonia, crying episodes, decreased appetite, poor sleep, and occasional suicidal ideation. She is however he vehemently denying any suicidal ideation, intention, and/or plan at this time. She reports that she has plenty of reasons to live, first and foremost for her children. The patient does report significant symptoms of hypomania including periods of excessive energy, increased goal-directed activity, impulsivity, and mood lability. She denies any grandiosity, or any history of psychosis. However, currently, the patient is reporting that she has expressed auditory hallucinations and having conversations with people who were not present all in the emergency department. She attributes this to alcohol withdrawal. The patient does report a significant history of alcohol use disorder. She reports that she has been occasionally attending AA and has been to multiple rehab facilities. She states that many rehabs do not take her insurance and that she would have to pay out of pocket. She is only recently open to outpatient treatment for mental health and for addiction. PAST PSYCHIATRIC HISTORY: Patient has a history of anxiety, depression, alcohol use disorder. Patient reports that she has been on "many different medications." She reports previous traveling Campral, Remeron, Zoloft, Seroquel, Depakote, and Lexapro. Ports one prior psychiatric admission 3 years ago. She reports that she recently started seeing a therapist in [place], [place]. Patient denies any history of suicide attempts in the past. PAST MEDICAL HISTORY: Past Medical History: Hyperlipidemia, Hypertension History of Any Multi-Drug Resistant Organisms: None Reported Past Surgical History: Hysterectomy, Tubal Ligation, Uterine Ablation Additional Past Surgical History / Comment(s): dharaa delma Past Anesthesia/Blood Transfusion Reactions: No Reported Reaction Past Psychological History: Anxiety, Depression Smoking Status: Former smoker Past Alcohol Use History: Daily Past Drug Use History: None Reported ALLERGIES: Allergies Allergy/AdvReac Type Severity Reaction Status Date / Time bacitracin Allergy Rash/Hives Verified 04/23/23 16:06 Sulfa (Sulfonamide Allergy Rash/Hives Verified 04/23/23 16:06 Antibiotics) CHEMICAL DEPENDENCY HISTORY: Patient denies any current tobacco use. She reports no marijuana or illicit drug use. She does report that she has been drinking up to a fifth of liquor per day. FAMILY PSYCHIATRIC/SUBSTANCE USE HISTORY: The patient reports that her mother was an alcoholic and bipolar. She reports that her daughter has "issues." No reported family history of suicide. SOCIAL HISTORY: Patient was born and raised in [place], [place]. She is currently to her second whom she has been with for 14 years but for 2. She reports that she has 4 children ages 24, 22, 12, and 11. She states that she is [employer]. She attended some college. She reports no history of legal problems. MENTAL STATUS EXAM: General Appearance: Patient appears to be stated age is alert, pleasant, and cooperative. Patient appears to have fair hygiene and grooming wearing hospital gown with fair eye contact. Behavior: Patient is calmly lying in bed without any agitated behavior. Speech: Patient's speech is fluent and nonpressured. Mood/Affect: Patient reports their mood is "depressed", affect is congruent and appropriately tearful Suicidality/Homicidality: Patient denies any suicidal or homicidal ideation, intention, and/or plan. Perceptions: Patient denies any visual hallucinations however is reporting auditory hallucinations in the context of withdrawal. She states that she last experienced them a few hours ago Though content/process: There is no evidence of any delusional thought content and thought process is linear and goal-directed. Memory and concentration: AOX3, grossly intact for the purposes of this session. Can spell "WORLD" backwards Judgment and insight: Fair IMPRESSIONS: Alcohol use disorder, severe, in withdrawal Depressive disorder, unspecified Anxiety disorder, unspecified PLAN: -Continue your medical management for acute alcohol withdrawal. Concern for DT's vs alcohol hallucinosis. Vitals appear stable. Patient is currently not hallucinating and is linear and logical in conversation. CIWA score of 6 as of 930 am. -At this time patient DOES NOT meet criteria for inpatient psychiatric admission. The patient is not presenting with suicidal or homicidal ideation. Primary pathology is substance related. -Delirium precautions recommended with patient including - avoiding use of narcotics and ASSEMBLY LINE WORKER sedatives, limit anticholinergic medications when possible, frequent re-orientation, minimize use of restraints, open window shades during the day and close them at night -Would recommend the following medication changes/additions: Due to concerns for alcohol withdrawal we will schedule Librium 20 mg by mouth 3 times a day Start Campral 333 mg by mouth 3 times a day from all cessation Paxil 20 mg by mouth daily for depression/anxiety Trazodone 150 mg by mouth at bedtime for insomnia -Risks, benefits, treatment alternatives were discussed with the patient in detail. -Approximately 20 minutes were spent providing the patient with motivational interviewing in regards her alcohol use disorder. -In regards to psychiatric illness and substance use, recommend inpatient substance abuse rehabilitation if the patient is willing. Otherwise recommend outpatient treatment for co-occurring mental health and substance related illness. -Psychiatry will sign off at this time. Please call us with any questions or reconsult us if necessary. 04/24/23 14:14 04/24/23 14:16
[2023-04-24] MEDS: ACAMPROSATE CALCIUM 333 MG TABLET.DR PO SCH ×2 (16:16→22:43)
[2023-04-24] MEDS ORDERED: traZODone HCL 50 MG TAB PO SCH (21:00)
[2023-04-24] MEDS: cloNIDine HCL 0.1 MG TAB PO SCH (21:59)
[2023-04-25] MEDS: ACAMPROSATE CALCIUM 333 MG TABLET.DR PO SCH (07:56)
[2023-04-25] MEDS: THIAMINE 100 MG TAB PO SCH (07:57)
[2023-04-25] MEDS: cloNIDine HCL 0.1 MG TAB PO SCH (07:57)
[2023-04-25] MEDS ORDERED: ACETAMINOPHEN TAB 325 MG TAB PO STA (08:19)
[2023-04-25] MEDS ORDERED: PARoxetine 20 MG TAB PO SCH (09:00)
[2023-04-25 09:12] VITALS: BP 127/81; PULSE 79; RESP 16; TEMP 98
[2023-04-25] MEDS: SODIUM CHLORIDE 0.9% 1,000 ML IV SCH (11:04)
[2023-04-25] MEDS ORDERED: ACAMPROSATE CALCIUM 333 MG TABLET.DR PO SCH (16:00)
[2023-04-25] MEDS ORDERED: traZODone HCL 50 MG TAB PO SCH (21:00)
--- NOTE | 2023-04-26 02:06 | HP ---
HISTORY AND PHYSICAL CHIEF COMPLAINT: Acute alcohol intoxication. HISTORY OF PRESENT ILLNESS: This is another admission for this 53-year-old white female alcoholic. She had been doing fairly well in the past when she was coming in regularly. She felt that when she stopped Paxil that things got worse. She does have some family issues at home as well. She came to the emergency room with a blood alcohol of 488 and was also complaining of depression. REVIEW OF SYSTEMS: She has had no blackouts, diplopia, seizures, chest pain, shortness of breath, abdominal pain, hematemesis, melena, hematochezia, jaundice, etc. Past medical history, family history, personal and social histories are all otherwise unremarkable or unchanged. She is allergic to sulfa. She is not currently taking any medications. She used to smoke, but does not any longer. PHYSICAL EXAMINATION: VITAL SIGNS: Blood pressure is 160/97 with a pulse of 108, respirations of 35 and she is afebrile. GENERAL: She appeared to be overweight and she was intoxicated. Face was flushed. HEAD, EARS, EYES, NOSE, MOUTH: Normal. CHEST: Clear. CARDIAC: Demonstrates sinus tachycardia. ABDOMEN: Protuberant, soft and nontender without any visceromegaly or masses. It was not felt that there was any ascites. EXTREMITIES: Normal. NEUROLOGICAL: She was slightly tremulous. ASSESSMENT: She is admitted to the hospital with diagnoses of: 1. Acute alcohol intoxication. 2. Chronic alcoholism. 3. Hypertension. 4. Depression. 5. Slightly elevated liver function studies from alcoholic hepatitis. PLAN: 1. Bed rest. 2. IV fluids. 3. CIWA protocol. 4. Psych consult. MMVANESSA / AMANDEEPN: [id number] /
--- NOTE | 2023-04-26 02:36 | PN ---
PROGRESS NOTE DATE OF SERVICE: 04/24/2023 CHIEF COMPLAINT: Acute alcohol intoxication. HISTORY OF PRESENT ILLNESS: This lady is doing better. She is still somewhat tremulous. Blood pressure is still slightly elevated. PHYSICAL EXAM: CHEST: Clear. CARDIAC: Normal. VITAL SIGNS: Blood pressure is 160/97. LABORATORY DATA: AST is 57 and ALT is 37. IMPRESSION: 1. Acute alcohol intoxication. 2. Chronic alcoholism. 3. Depression. 4. Hypertension. 5. Start clonidine for blood pressure. MMODL / IJN: [id number] /
--- NOTE | 2023-04-26 03:43 | DS ---
DISCHARGE SUMMARY CHIEF COMPLAINT: Acute alcohol intoxication and hypertension. HISTORY OF PRESENT ILLNESS AND PHYSICAL EXAMINATION: Details of this lady's history and physical can be found in the initial workup. LABORATORY STUDIES: While she was in the hospital, she had laboratory studies, details of which can be found in the laboratory section of her chart. COURSE IN THE HOSPITAL: After admission, she was placed on bedrest, started on intravenous fluids and CIWA protocol. Hypertension was addressed. She is doing well and felt that she could go home on the and she will follow up in the office in several days. FINAL DIAGNOSES: 1. Acute alcohol intoxication. 2. Chronic alcoholism. 3. Hypertension. 4. Delirium tremens. 5. Depression. OPERATIONS: None. CONSULTATIONS: Psychiatry. She is improved. DOMINICK / ELENA: [id number] /
== END 2023-04-25 15:16 | disposition home or self-care (01) ==
LOC: EC 12:47 → 6NMEDSUR 15:37
PROVIDERS: ADMIT Family Medicine; ATTEND Family Medicine
DX: F10.239 Alcohol dependence with withdrawal, unspecified (principal); K70.10 Alcoholic hepatitis without ascites; F10.220 Alcohol dependence with intoxication, uncomplicated; F32.A Depression, unspecified; E78.5 Hyperlipidemia, unspecified; I10 Essential (primary) hypertension; F41.9 Anxiety disorder, unspecified; Z79.82 Long term (current) use of aspirin; Z79.899 Other long term (current) drug therapy; Z88.1 Allergy status to other antibiotic agents; Z88.2 Allergy status to sulfonamides; Z90.710 Acquired absence of both cervix and uterus; Z98.51 Tubal ligation status; Z81.1 Family history of alcohol abuse and dependence; Z81.8 Family history of other mental and behavioral disorders; Z56.0 Unemployment, unspecified; Z87.891 Personal history of nicotine dependence; Z82.49 Family history of ischemic heart disease and other diseases of the circulatory system; Y90.8 Blood alcohol level of 240 mg/100 ml or more
CPT/HCPCS: 96376 ×2; 96361 ×2; 96372; 96374; 96375; 99284; 36415; 80053; 85025; 81001; G0378 ×3; G0480; J2060 ×2; J3411; J2405; J1885; 80320

== ENCOUNTER 2024-01-24 13:52 | Inpatient (IN) | payer OTHER ==
[2024-01-24] MEDS: SODIUM CHLORIDE 0.9% 1,000 ML IV STA (14:29)
[2024-01-24 14:30] LABS: Basophils # (A) 0.1 k/uL (0-0.2); Basophils % (A) 1 %; Eosinophils # (A) 0.1 k/uL (0-0.7); Eosinophils % (A) 1 %; HCT 49.5 % (34.0-46.0); HGB 15.3 gm/dL (11.4-16.0); Lymphocytes # (A) 2.1 k/uL (1.0-4.8); Lymphocytes % (A) 32 %; MCH 31.1 pg (25.0-35.0); MCHC 30.9 g/dL (31.0-37.0); MCV 100.7 fL (80.0-100.0); Macrocytosis Slight; Mean Platelet Volume 6.8; Monocytes # (A) 0.3 k/uL (0-1.0); Monocytes % (A) 5 %; Neutrophils # (A) 3.7 k/uL (1.3-7.7); Neutrophils % (A) 57 %; Platelet Count 169 k/uL (150-450); RBC 4.92 m/uL (3.80-5.40); RDW 14.6 % (11.5-15.5); WBC 6.5 k/uL (3.8-10.6)
[2024-01-24] MEDS: SODIUM CHLORIDE 0.9% 500 ML 500 ML IV STA (14:30)
[2024-01-24 14:35] LABS: INR 0.9 (<1.2); Prothrombin Time 10.3 sec (10.0-12.5)
[2024-01-24 14:45] LABS: ALT 80 U/L (4-34); AST 132 U/L (14-36); African American GFR (CKD) >90 (>60 ml/min/1.73 sqM); Albumin 4.7 g/dL (3.5-5.0); Alkaline Phosphatase 114 U/L (38-126); Anion Gap 17 mmol/L; Blood Urea Nitrogen 12 mg/dL (7-17); Calcium 8.8 mg/dL (8.4-10.2); Carbon Dioxide 24 mmol/L (22-30); Chloride 102 mmol/L (98-107); Glucose 91 mg/dL (74-99); Lipase 86 U/L (23-300); Magnesium 1.9 mg/dL (1.6-2.3); Non-African American GFR(CKD) >90 (>60 ml/min/1.73 sqM); Potassium 4.2 mmol/L (3.5-5.1); Sodium 143 mmol/L (137-145); Total Bilirubin 0.8 mg/dL (0.2-1.3); Total Protein 7.6 g/dL (6.3-8.2)
[2024-01-24 15:00] LABS: Alcohol 468 mg/dL
--- NOTE | 2024-01-24 15:13 | ED ---
Alcohol HPI - General Chief Complaint: Alcohol Stated Complaint: Alcohol Withdrawls Time Seen by Provider: 01/24/24 14:11 Source: patient, RN notes reviewed Mode of arrival: ambulatory Limitations: no limitations - History of Present Illness Initial Comments: 53-year-old female presents emergency department with chief complaint of needing alcohol help. Patient is unable to answer most questions but states that she feels like she is dying. Patient states she drinks at least 1/5 of alcohol daily. She states that she supposed be on other medications but she is unsure what these are. She states that she has not been to recent rehab but states that she feels that she may need something she states she has severe withdrawal symptoms. - Related Data Home Medications Medication Instructions Recorded Confirmed diphenhydrAMINE HCL [Benadryl] 25 mg PO Q8H PRN 01/24/24 01/24/24 Allergies Allergy/AdvReac Type Severity Reaction Status Date / Time bacitracin Allergy Rash/Hives Verified 01/24/24 16:07 Sulfa (Sulfonamide Allergy Rash/Hives Verified 01/24/24 16:07 Antibiotics) Review of Systems ROS Statement: Those systems with pertinent positive or pertinent negative responses have been documented in the HPI. ROS Other: All systems not noted in ROS Statement are negative. Past Medical History Past Medical History: Hyperlipidemia, Hypertension Additional Past Medical History / Comment(s): ETOH abuse History of Any Multi-Drug Resistant Organisms: None Reported Past Surgical History: Hysterectomy, Tubal Ligation, Uterine Ablation Additional Past Surgical History / Comment(s): nova delma Past Anesthesia/Blood Transfusion Reactions: No Reported Reaction Past Psychological History: Anxiety, Depression Smoking Status: Former smoker Past Alcohol Use History: Daily, Heavy Past Drug Use History: None Reported - Past Family History Mother Family Medical History: No Reported History Father Family Medical History: Coronary Artery Disease (CAD) General Exam Limitations: no limitations General appearance: alert, in no apparent distress Head exam: Present: atraumatic, normocephalic, normal inspection Eye exam: Present: normal appearance, PERRL, EOMI. Absent: scleral icterus, conjunctival injection, periorbital swelling ENT exam: Present: normal exam, normal oropharynx, mucous membranes moist Neck exam: Present: normal inspection, full ROM. Absent: tenderness, meningismus, lymphadenopathy Respiratory exam: Present: normal lung sounds bilaterally. Absent: respiratory distress, wheezes, rales, rhonchi, stridor Cardiovascular Exam: Present: regular rate, normal rhythm, normal heart sounds. Absent: systolic murmur, diastolic murmur, rubs, gallop, clicks GI/Abdominal exam: Present: soft, normal bowel sounds. Absent: distended, tenderness, guarding, rebound, rigid Neurological exam: Present: alert Course Vital Signs 01/24/24 01/24/24 01/24/24 13:56 15:28 17:46 Temperature 98.4 F Pulse Rate 100 87 84 Respiratory 18 16 18 Rate Blood Pressure 178/117 131/84 130/84 O2 Sat by Pulse 97 94 L 98 Oximetry 01/24/24 19:02 Temperature Pulse Rate 94 Respiratory 18 Rate Blood Pressure 145/95 O2 Sat by Pulse 94 L Oximetry Medical Decision Making - Medical Decision Making Was pt. sent in by a medical professional or institution (, PA, SHIRT SEWER, urgent care, hospital, or fci...) When possible be specific @ -No Did you speak to anyone other than the patient for history (EMS, parent, family, police, friend...)? What history was obtained from this source @ -No Did you review nursing and triage notes (agree or disagree)? Why? @ -I reviewed and agree with nursing and triage notes Were old charts reviewed (outside hosp., previous admission, EMS record, old EKG, old radiological studies, urgent care reports/EKG's, fci records)? Report findings @ -No old charts were reviewed Differential Diagnosis (chest pain, altered mental status, abdominal pain women, abdominal pain men, vaginal bleeding, weakness, fever, dyspnea, syncope, headache, dizziness, GI bleed, back pain, seizure, CVA, palpatations, mental he alth, musculoskeletal)? @ -Differential Abdominal Pain Women: Appendicitis, Cholecystitis, diverticulosis, ischemic bowel, pancreatitis, hepatitis, UTI, gastroenteritis, AAA, incarcerated hernia, bowel obstruction, constipation, inflammatory bowel, hepatitis, peptic ulcer disease, splenic infarction, perforated viscus, vulvitis, ovarian torsion, PID, kidney stone, placenta abruption, this is not meant to be an all-inclusive list EKG interpreted by me (3pts min.). @ -As above X-rays interpreted by me (1pt min.). @ -None done CT interpreted by me (1pt min.). @ -None done U/S interpreted by me (1pt. min.). @ -None done What testing was considered but not performed or refused? (CT, X-rays, U/S, labs)? Why? @ -None What meds were considered but not given or refused? Why? @ -None Did you discuss the management of the patient with other professionals (professionals i.e. DrAta, PA, SHIRT SEWER, lab, RT, psych nurse, social services technician, sand cutting machine operator, teacher, bank operations officer, case making machine operator)? Give summary @ -Dr. Ortiz for admission secondary to severe alcohol intoxication, probable withdrawal syndrome that is pending given patient is attempting to get sober. Was smoking cessation discussed for >3mins.? @ -No Was critical care preformed (if so, how long)? @ -No Were there social determinants of health that impacted care today? How? (Homelessness, low income, unemployed, alcoholism, drug addiction, transportat ion, low edu. Level, literacy, decrease access to med. care, shelter, rehab)? @ -No Was there de-escalation of care discussed even if they declined (Discuss DNR or withdrawal of care, Hospice)? DNR status @ -No What co-morbidities impacted this encounter? (DM, HTN, Smoking, COPD, CAD, Cancer, CVA, ARF, Chemo, Hep., AIDS, mental health diagnosis, sleep apnea, morbid obesity)? @ -[Diabetes, hypertension Was patient admitted / discharged? Hospital course, mention meds given and route, prescriptions, significant lab abnormalities, going to OR and other pertinent info. @ -Admitted patient will be admitted with CIWA protocol and Ativan withdrawal. Patient's laboratory studies reveal no significant findings other than severe alcohol intoxication. Undiagnosed new problem with uncertain prognosis? @ -[No Drug Therapy requiring intensive monitoring for toxicity (Heparin, Nitro, Insulin, Cardizem)? @ -No Were any procedures done? @ -No Diagnosis/symptom? @ -[Alcohol abuse, alcohol intoxication Acute, or Chronic, or Acute on Chronic? @ -Acute Uncomplicated (without systemic symptoms) or Complicated (systemic symptoms)? @ -Complicated Side effects of treatment? @ -No Exacerbation, Progression, or Severe Exacerbation? @ -No Poses a threat to life or bodily function? How? (Chest pain, USA, SC, pneumonia, PE, COPD, DKA, ARF, appy, cholecystitis, CVA, Diverticulitis, Homicidal, Suicidal, threat to staff... and all critical care pts) @ -yes, severe alcohol intoxication - Lab Data Result diagrams: 01/24/24 14:24 01/24/24 14:24 Lab Results 01/24/24 01/24/24 01/24/24 Range/Units 14:24 14:24 14:24 WBC 6.5 (3.8-10.6) k/uL RBC 4.92 (3.80-5.40) m/uL Hgb 15.3 (11.4-16.0) gm/dL Hct 49.5 H (34.0-46.0) % MCV 100.7 H (80.0-100.0) fL MCH 31.1 (25.0-35.0) pg MCHC 30.9 L (31.0-37.0) g/dL RDW 14.6 (11.5-15.5) % Plt Count 169 (150-450) k/uL MPV 6.8 Neutrophils % 57 % Lymphocytes % 32 % Monocytes % 5 % Eosinophils % 1 % Basophils % 1 % Neutrophils # 3.7 (1.3-7.7) k/uL Lymphocytes # 2.1 (1.0-4.8) k/uL Monocytes # 0.3 (0-1.0) k/uL Eosinophils # 0.1 (0-0.7) k/uL Basophils # 0.1 (0-0.2) k/uL Macrocytosis Slight PT 10.3 (10.0-12.5) sec INR 0.9 (<1.2) Sodium 143 (137-145) mmol/L Potassium 4.2 (3.5-5.1) mmol/L Chloride 102 (98-107) mmol/L Carbon Dioxide 24 (22-30) mmol/L Anion Gap 17 mmol/L BUN 12 (7-17) mg/dL Creatinine 0.50 L (0.52-1.04) mg/dL Est GFR (CKD-EPI)AfAm >90 (>60 ml/min/1.73 sqM) Est GFR (CKD-EPI)NonAf >90 (>60 ml/min/1.73 sqM) Glucose 91 (74-99) mg/dL Calcium 8.8 (8.4-10.2) mg/dL Magnesium 1.9 (1.6-2.3) mg/dL Total Bilirubin 0.8 (0.2-1.3) mg/dL AST 132 H (14-36) U/L ALT 80 H (4-34) U/L Alkaline Phosphatase 114 (38-126) U/L Total Protein 7.6 (6.3-8.2) g/dL Albumin 4.7 (3.5-5.0) g/dL Lipase 86 (23-300) U/L Urine Color Urine Appearance (Clear) Urine pH (5.0-8.0) Ur Specific [place] (1.001-1.035) Urine Protein (Negative) Urine Glucose (UA) (Negative) Urine Ketones (Negative) Urine Blood (Negative) Urine Nitrite (Negative) Urine Bilirubin (Negative) Urine Urobilinogen (<2.0) mg/dL Ur Leukocyte Esterase (Negative) Urine Opiates Screen (NotDetected) Ur Oxycodone Screen (NotDetected) Urine Methadone Screen (NotDetected) Ur Barbiturates Screen (NotDetected) U Tricyclic Antidepress (NotDetected) Ur Phencyclidine Scrn (NotDetected) Ur Amphetamines Screen (NotDetected) U Methamphetamines Scrn (NotDetected) U Benzodiazepines Scrn (NotDetected) Urine Cocaine Screen (NotDetected) U Marijuana (THC) Screen (NotDetected) Serum Alcohol 468 H* mg/dL 01/24/24 Range/Units 15:45 WBC (3.8-10.6) k/uL RBC (3.80-5.40) m/uL Hgb (11.4-16.0) gm/dL Hct (34.0-46.0) % MCV (80.0-100.0) fL MCH (25.0-35.0) pg MCHC (31.0-37.0) g/dL RDW (11.5-15.5) % Plt Count (150-450) k/uL MPV Neutrophils % % Lymphocytes % % Monocytes % % Eosinophils % % Basophils % % Neutrophils # (1.3-7.7) k/uL Lymphocytes # (1.0-4.8) k/uL Monocytes # (0-1.0) k/uL Eosinophils # (0-0.7) k/uL Basophils # (0-0.2) k/uL Macrocytosis PT (10.0-12.5) sec INR (<1.2) Sodium (137-145) mmol/L Potassium (3.5-5.1) mmol/L Chloride (98-107) mmol/L Carbon Dioxide (22-30) mmol/L Anion Gap mmol/L BUN (7-17) mg/dL Creatinine (0.52-1.04) mg/dL Est GFR (CKD-EPI)AfAm (>60 ml/min/1.73 sqM) Est GFR (CKD-EPI)NonAf (>60 ml/min/1.73 sqM) Glucose (74-99) mg/dL Calcium (8.4-10.2) mg/dL Magnesium (1.6-2.3) mg/dL Total Bilirubin (0.2-1.3) mg/dL AST (14-36) U/L ALT (4-34) U/L Alkaline Phosphatase (38-126) U/L Total Protein (6.3-8.2) g/dL Albumin (3.5-5.0) g/dL Lipase (23-300) U/L Urine Color Colorless Urine Appearance Clear (Clear) Urine pH 6.5 (5.0-8.0) Ur Specific [place] 1.005 (1.001-1.035) Urine Protein Negative (Negative) Urine Glucose (UA) Negative (Negative) Urine Ketones Trace H (Negative) Urine Blood Negative (Negative) Urine Nitrite Negative (Negative) Urine Bilirubin Negative (Negative) Urine Urobilinogen <2.0 (<2.0) mg/dL Ur Leukocyte Esterase Negative (Negative) Urine Opiates Screen Not Detected (NotDetected) Ur Oxycodone Screen Not Detected (NotDetected) Urine Methadone Screen Not Detected (NotDetected) Ur Barbiturates Screen Not Detected (NotDetected) U Tricyclic Antidepress Not Detected (NotDetected) Ur Phencyclidine Scrn Not Detected (NotDetected) Ur Amphetamines Screen Not Detected (NotDetected) U Methamphetamines Scrn Not Detected (NotDetected) U Benzodiazepines Scrn Not Detected (NotDetected) Urine Cocaine Screen Not Detected (NotDetected) U Marijuana (THC) Screen Not Detected (NotDetected) Serum Alcohol mg/dL - EKG Data -: EKG Interpreted by Me EKG Comments: EKG performed at 14: 49 sinus rhythm rate 84 NJ 169 QRS 106 QT/QTc 388/429 Disposition Clinical Impression: Alcoholic intoxication, ETOH abuse Disposition: ADMITTED IP TO THIS [facility] Condition: Fair Time of Disposition: 15:51
[2024-01-24] MEDS: LABETALOL 5 MG/ML VIAL MDV IVP STA (15:27)
[2024-01-24] MEDS ORDERED: LORazepam 2 MG/ML INJ IV PRN (15:50)
[2024-01-24] MEDS ORDERED: NALOXONE 0.4 MG/ML 1 ML VIAL IV PRN (15:51)
[2024-01-24] MEDS ORDERED: ONDANSETRON 4 MG/2 ML VIAL IVP PRN (15:51)
[2024-01-24] MEDS: SODIUM CHLORIDE 0.9% 1,000 ML IV SCH (16:02)
[2024-01-24 16:21] LABS: Appearance,Urine Clear (Clear); Bilirubin,Urine Negative (Negative); Blood,Urine Negative (Negative); Color,Urine Colorless; Glucose,Urine (UA) Negative (Negative); Ketones,Urine Trace (Negative); Leukocyte Esterase,Urine Negative (Negative); Nitrite,Urine Negative (Negative); PH, Urine 6.5 (5.0-8.0); Protein,Urine Negative (Negative); Specific Gravity,Urine 1.005 (1.001-1.035); Urobilinogen,Urine <2.0 mg/dL (<2.0)
[2024-01-24 17:12] LABS: Amphetamine Screen,Urine Not Detected (NotDetected); Barbiturate Screen,Urine Not Detected (NotDetected); Benzodiazepines Screen,Urine Not Detected (NotDetected); Cocaine Screen,Urine Not Detected (NotDetected); Methadone Screen, Urine Not Detected (NotDetected); Opiate Screen,Urine Not Detected (NotDetected); Oxycodone Screen, Urine Not Detected (NotDetected); Phencyclidine Screen,Urine Not Detected (NotDetected); Tricyclic Antidepressant,Urine Not Detected (NotDetected); Urn Cannabinoid Scrn Not Detected (NotDetected)
[2024-01-24] MEDS: LORazepam 1 MG TAB PO PRN (17:51)
[2024-01-24] MEDS: LORazepam 2 MG/ML INJ IV PRN (21:48)
[2024-01-25] MEDS: THIAMINE 100 MG TAB PO SCH (08:51)
[2024-01-25] MEDS: LORazepam 2 MG/ML INJ IV PRN (16:51)
[2024-01-26] MEDS: LORazepam 0.5 MG TAB PO PRN (05:09)
--- NOTE | 2024-01-26 23:04 | HP ---
HISTORY AND PHYSICAL CHIEF COMPLAINT: Acute alcohol intoxication on chronic alcoholism. HISTORY OF PRESENT ILLNESS: Another admission for this 53-year-old chronic alcoholic. She tries to avoid alcohol consumption, but then becomes stressed and depressed, starts drinking and drinks extremely heavily. She came in acutely intoxicated again. She has had elevated liver function studies in the past from her drinking. REVIEW OF SYSTEMS: She is weak, nauseated and somewhat tremulous. Other than that she is currently stable. She denies blackouts or seizures. Past medical history, family history, and personal and social histories are otherwise unremarkable. PHYSICAL EXAMINATION: VITAL SIGNS: Normal. HEAD, EARS, EYES, NOSE, MOUTH, AND THROAT: Normal. CHEST: Clear. CARDIAC: Normal. ABDOMEN: Soft, nontender. EXTREMITIES: Normal. NEUROLOGIC: Other than being lethargic, she is intact. IMPRESSION: She is admitted to the hospital with diagnosis of: 1. Acute alcohol intoxication. 2. Chronic alcoholism. 3. Depression. PLAN: 1. Bed rest. 2. IV fluids. 3. [facility] protocol. DOMINICK / ELENA: [id number] /
--- NOTE | 2024-01-27 05:49 | PN ---
PROGRESS NOTE DATE OF SERVICE: 01/25/2024 CHIEF COMPLAINT: Acute alcohol intoxication. HISTORY OF PRESENT ILLNESS: This lady is still currently ill. She has had no vomiting. She has had no seizures. She denies diplopia or tremors. PHYSICAL EXAMINATION: VITAL SIGNS: Normal. EYES: Normal. There is no strabismus. CHEST: Clear. CARDIAC: Normal. ABDOMEN: Soft, nontender. IMPRESSION: 1. Acute alcohol intoxication. 2. Chronic alcoholism. PLAN: Continue with IV fluids and CIWA protocol. MMODL / IJN: [id number] /
--- NOTE | 2024-01-27 06:10 | PN ---
PROGRESS NOTE DATE OF SERVICE: 01/26/2024 CHIEF COMPLAINT: Acute alcohol intoxication. HISTORY OF PRESENT ILLNESS: This lady remains ill. She is still nauseated. She has had no blackouts or seizures. PHYSICAL EXAMINATION: VITAL SIGNS: Normal. CHEST: Clear. CARDIAC: Normal. ABDOMEN: Soft, nontender. IMPRESSION: 1. Acute alcohol intoxication. 2. Chronic alcoholism. PLAN: Continue with detox and slowly increase her activity and diet. MMODL / IJN: [id number] /
[2024-01-27 07:41] VITALS: BP 149/100; PULSE 88; RESP 18; TEMP 98.4
--- NOTE | 2024-01-28 03:01 | DS ---
DISCHARGE SUMMARY CHIEF COMPLAINT: Acute alcohol intoxication. HISTORY OF PRESENT ILLNESS AND PHYSICAL EXAM: Details of this lady's history and physical can be found in the initial workup. LABORATORY STUDIES: While she is in the hospital, she had laboratory studies, details of which can be found in the laboratory section of her chart. COURSE IN THE HOSPITAL: After admission, she was placed on bedrest and started on intravenous fluids and CIWA protocol. Initially, she was quite ill; but by the , she was up, about, eating and having no difficulty with nausea, tremors, DTs, diplopia, etc., and she was sent home. FINAL DIAGNOSES: 1. Acute alcohol intoxication. 2. Chronic alcoholism. 3. Hypertension. OPERATIONS: None. CONSULTATION: None. She is improved. DOMINICK / ELENA: [id number] /
== END 2024-01-27 12:37 | disposition home or self-care (01) | DRG 897 ==
LOC: EC 13:52 → 4SSUR 15:52
PROVIDERS: ADMIT Family Medicine; ATTEND Family Medicine
DX: F10.229 Alcohol dependence with intoxication, unspecified (principal); E78.5 Hyperlipidemia, unspecified; I10 Essential (primary) hypertension; F32.A Depression, unspecified; Z88.1 Allergy status to other antibiotic agents; Z88.2 Allergy status to sulfonamides; Z87.891 Personal history of nicotine dependence
CPT/HCPCS: 36415; 80053; 80306; 80320; 81003; 83690; 83735; 85025; 85610; 93005; 96360; 96361; 99285

== ENCOUNTER 2024-11-19 11:02 | Emergency (ER) | payer OTHER ==
[2024-11-19 11:08] VITALS: RESP 18
[2024-11-19 12:00] LABS: Basophils % (A) 0 %; Eosinophils # (A) 0.1 k/uL (0-0.7); Eosinophils % (A) 2 %; HGB 13.9 gm/dL (11.4-16.0); Lymphocytes # (A) 1.3 k/uL (1.0-4.8); Lymphocytes % (A) 25 %; MCH 30.9 pg (25.0-35.0); MCHC 32.2 g/dL (31.0-37.0); MCV 96.1 fL (80.0-100.0); Mean Platelet Volume 7.2; Monocytes # (A) 0.4 k/uL (0-1.0); Monocytes % (A) 7 %; Neutrophils # (A) 3.3 k/uL (1.3-7.7); Neutrophils % (A) 64 %; Platelet Count 133 k/uL (150-450); RBC 4.48 m/uL (3.80-5.40); RDW 13.5 % (11.5-15.5); WBC 5.1 k/uL (3.8-10.6)
--- NOTE | 2024-11-19 12:00 | ED ---
General Adult HPI - General Chief complaint: Chest Pain Stated complaint: SOB/CHEST PAIN Time Seen by Provider: 11/19/24 11:14 Source: patient, RN notes reviewed, old records reviewed Mode of arrival: ambulatory Limitations: no limitations - History of Present Illness Initial comments: 54-year-old female presenting with palpitations, chest discomfort, anxiety. Patient is attempting to abstain from alcohol. She is transitioning from liquor to beer in an attempt to reduce her alcohol consumption. She began this process approximately 5 days ago. She has had palpitation, anxiety and chest discomfort. She was concerned that this could be related to her heart. She denies previous history of coronary artery disease. No seizure activity, no hallucination. - Related Data Home Medications Medication Instructions Recorded Confirmed diphenhydrAMINE HCL [Benadryl] 25 mg PO DAILY 01/24/24 11/19/24 Cyanocobalamin (Vitamin B-12) 1,000 mcg PO DAILY 11/19/24 11/19/24 [Vitamin B-12] Rosuvastatin [Crestor] 20 mg PO DAILY 11/19/24 11/19/24 Thiamine [Vitamin B-1] 100 mg PO DAILY 11/19/24 11/19/24 Previous Rx's Medication Instructions Recorded diazePAM [Valium] 5 mg PO TID PRN 3 Days #9 tab 11/19/24 Allergies Allergy/AdvReac Type Severity Reaction Status Date / Time bacitracin Allergy Rash/Hives Verified 11/19/24 12:32 Sulfa (Sulfonamide Allergy Rash/Hives Verified 11/19/24 12:32 Antibiotics) Review of Systems ROS Statement: Those systems with pertinent positive or pertinent negative responses have been documented in the HPI. ROS Other: All systems not noted in ROS Statement are negative. Past Medical History Past Medical History: Hyperlipidemia, Hypertension Additional Past Medical History / Comment(s): ETOH abuse History of Any Multi-Drug Resistant Organisms: None Reported Past Surgical History: Hysterectomy, Tubal Ligation, Uterine Ablation Additional Past Surgical History / Comment(s): macey Past Anesthesia/Blood Transfusion Reactions: No Reported Reaction Past Psychological History: Anxiety, Depression Smoking Status: Former smoker Past Alcohol Use History: None Reported, Daily, Heavy Past Drug Use History: None Reported - Past Family History Mother Family Medical History: No Reported History Father Family Medical History: Coronary Artery Disease (CAD) General Exam Limitations: no limitations General appearance: alert, in no apparent distress, anxious Head exam: Present: atraumatic, normocephalic Eye exam: Present: normal appearance, PERRL ENT exam: Present: normal exam Neck exam: Present: normal inspection. Absent: tenderness, meningismus Respiratory exam: Present: normal lung sounds bilaterally. Absent: respiratory distress, wheezes Cardiovascular Exam: Present: regular rate, normal rhythm GI/Abdominal exam: Present: soft. Absent: distended, tenderness, guarding Extremities exam: Present: normal inspection, normal capillary refill. Absent: pedal edema Neurological exam: Present: alert, oriented X3, CN II-XII intact. Absent: motor sensory deficit Psychiatric exam: Present: normal affect, normal mood Skin exam: Present: warm, dry, intact. Absent: cyanosis, diaphoretic Course Vital Signs 11/19/24 11/19/24 11:04 12:06 Temperature 98.4 F Pulse Rate 93 71 Respiratory 18 18 Rate Blood Pressure 160/92 169/107 O2 Sat by Pulse 100 96 Oximetry Medical Decision Making - Medical Decision Making Was pt. sent in by a medical professional or institution (, PA, DIRECTOR OF EXHIBIT DEVELOPMENT, urgent care, hospital, or senior living...) When possible be specific @ -No Did you speak to anyone other than the patient for history (EMS, parent, family, police, friend...)? What history was obtained from this source @ -No Did you review nursing and triage notes (agree or disagree)? Why? @ -I reviewed and agree with nursing and triage notes Were old charts reviewed (outside hosp., previous admission, EMS record, old EK G, old radiological studies, urgent care reports/EKG's, senior living records)? Report findings @ -No old charts were reviewed Differential Chest Pain: Stable Angina, Unstable Angina, STEMI, NSTEMI Aortic Dissection, Pneumothorax, Musculoskeletal, Esophageal Spasm GERD, Cholecystitis, Pancreatitis, Zoster, this is not meant to be an all-inclusive list. EKG interpreted by me (3pts min.). @EKG: Sinus rhythm rate of 69, ME interval 164, QRS duration 98, QTc [address] segment elevation. X-rays interpreted by me (1pt min.). @ -2 view chest x-ray negative for acute cardiopulmonary findings CT interpreted by me (1pt min.). @ -None done U/S interpreted by me (1pt. min.). @ -None done What testing was considered but not performed or refused? (CT, X-rays, U/S, labs)? Why? @ -None What meds were considered but not given or refused? Why? @ -None Did you discuss the management of the patient with other professionals (professionals i.e. , PA, DIRECTOR OF EXHIBIT DEVELOPMENT, lab, RT, psych nurse, social work associate, battery hand, teacher, hotel security officer, hospice case manager)? Give summary @ -No Was smoking cessation discussed for >3mins.? @ -No Was critical care preformed (if so, how long)? @ -No Were there social determinants of health that impacted care today? How? (Homelessness, low income, unemployed, alcoholism, drug addiction, transportation, low edu. Level, literacy, decrease access to med. care, [facility], rehab)? @ -No Was there de-escalation of care discussed even if they declined (Discuss DNR or withdrawal of care, Hospice)? DNR status @ -No What co-morbidities impacted this encounter? (DM, HTN, Smoking, COPD, CAD, Cancer, CVA, ARF, Chemo, Hep., AIDS, mental health diagnosis, sleep apnea, morbid obesity)? @ -Alcohol abuse Was patient admitted / discharged? Hospital course, mention meds given and route, prescriptions, significant lab abnormalities, going to OR and other pertinent info. @ -54-year-old female with chief complaint of palpitations and anxiety while abstaining from alcohol. Patient was concerned that this could be related to her heart. Her EKG is sinus troponin is negative. She has a normal CBC, CMP shows a mild transaminitis and a mildly elevated bilirubin without any abdominal pain or tenderness. I did plan to observe this patient for alcohol withdrawal. The patient declines and her is bedside. She prefers discharge and states she has done this many times in the past. She feels safe to go home. She does not want any further testing at this time and she is awake alert and oriented at the time of this decision. Undiagnosed new problem with uncertain prognosis? @ -No Drug Therapy requiring intensive monitoring for toxicity (Heparin, Nitro, Insulin, Cardizem)? @ -No Were any procedures done? @ -No Diagnosis/symptom? @ -Alcohol withdrawal Acute, or Chronic, or Acute on Chronic? @Acute Uncomplicated (without systemic symptoms) or Complicated (systemic symptoms)? @ -Default Side effects of treatment? @ -No Exacerbation, Progression, or Severe Exacerbation? @ -No Poses a threat to life or bodily function? How? (Chest pain, [place], [place], pneumonia, PE, COPD, DKA, ARF, appy, cholecystitis, CVA, Diverticulitis, Homicidal, Suicidal, threat to staff... and all critical care pts) @ -Yes, risk of DTs - Lab Data Result diagrams: 11/19/24 11:46 11/19/24 11:46 Lab Results 11/19/24 11/19/24 11/19/24 Range/Units 11:46 11:46 11:46 WBC 5.1 (3.8-10.6) k/uL RBC 4.48 (3.80-5.40) m/uL Hgb 13.9 (11.4-16.0) gm/dL Hct 43.0 (34.0-46.0) % MCV 96.1 (80.0-100.0) fL MCH 30.9 (25.0-35.0) pg MCHC 32.2 (31.0-37.0) g/dL RDW 13.5 (11.5-15.5) % Plt Count 133 L (150-450) k/uL MPV 7.2 Neutrophils % 64 % Lymphocytes % 25 % Monocytes % 7 % Eosinophils % 2 % Basophils % 0 % Neutrophils # 3.3 (1.3-7.7) k/uL Lymphocytes # 1.3 (1.0-4.8) k/uL Monocytes # 0.4 (0-1.0) k/uL Eosinophils # 0.1 (0-0.7) k/uL Basophils # 0.0 (0-0.2) k/uL PT 10.2 (10.0-12.5) sec INR 0.9 (<1.2) APTT 23.7 (22.0-30.0) sec Sodium 138 (137-145) mmol/L Potassium 4.3 (3.5-5.1) mmol/L Chloride 99 (98-107) mmol/L Carbon Dioxide 28 (22-30) mmol/L Anion Gap 11 mmol/L BUN 10 (7-17) mg/dL Creatinine 0.49 L (0.52-1.04) mg/dL Est GFR (CKD-EPI)AfAm >90 (>60 ml/min/1.73 sqM) Est GFR (CKD-EPI)NonAf >90 (>60 ml/min/1.73 sqM) Glucose 103 H (74-99) mg/dL Calcium 10.0 (8.4-10.2) mg/dL Magnesium 1.8 (1.6-2.3) mg/dL Total Bilirubin 1.7 H (0.2-1.3) mg/dL AST 62 H (14-36) U/L ALT 68 H (4-34) U/L Alkaline Phosphatase 72 (38-126) U/L Troponin I (0.000-0.034) ng/mL Total Protein 7.0 (6.3-8.2) g/dL Albumin 4.7 (3.5-5.0) g/dL Lipase 58 (23-300) U/L 11/19/24 Range/Units 11:46 WBC (3.8-10.6) k/uL RBC (3.80-5.40) m/uL Hgb (11.4-16.0) gm/dL Hct (34.0-46.0) % MCV (80.0-100.0) fL MCH (25.0-35.0) pg MCHC (31.0-37.0) g/dL RDW (11.5-15.5) % Plt Count (150-450) k/uL MPV Neutrophils % % Lymphocytes % % Monocytes % % Eosinophils % % Basophils % % Neutrophils # (1.3-7.7) k/uL Lymphocytes # (1.0-4.8) k/uL Monocytes # (0-1.0) k/uL Eosinophils # (0-0.7) k/uL Basophils # (0-0.2) k/uL PT (10.0-12.5) sec INR (<1.2) APTT (22.0-30.0) sec Sodium (137-145) mmol/L Potassium (3.5-5.1) mmol/L Chloride (98-107) mmol/L Carbon Dioxide (22-30) mmol/L Anion Gap mmol/L BUN (7-17) mg/dL Creatinine (0.52-1.04) mg/dL Est GFR (CKD-EPI)AfAm (>60 ml/min/1.73 sqM) Est GFR (CKD-EPI)NonAf (>60 ml/min/1.73 sqM) Glucose (74-99) mg/dL Calcium (8.4-10.2) mg/dL Magnesium (1.6-2.3) mg/dL Total Bilirubin (0.2-1.3) mg/dL AST (14-36) U/L ALT (4-34) U/L Alkaline Phosphatase (38-126) U/L Troponin I <0.012 (0.000-0.034) ng/mL Total Protein (6.3-8.2) g/dL Albumin (3.5-5.0) g/dL Lipase (23-300) U/L Disposition Clinical Impression: Alcohol withdrawal syndrome Disposition: HOME SELF-CARE Condition: Fair Instructions (If sedation given, give patient instructions): Alcohol Withdrawal (ED) Prescriptions: diazePAM [Valium] 5 mg PO TID PRN 3 Days #9 tab PRN Reason: Alcohol Withdrawal Is patient prescribed a controlled substance at d/c from ED?: No Referrals: None,Stated [Primary Care Provider] - 1-2 days Henok Florentino MD [STAFF PHYSICIAN] - 1-2 days Time of Disposition: 12:53
[2024-11-19] MEDS: LORazepam 2 MG/ML INJ IV STA (12:05)
[2024-11-19 12:08] LABS: INR 0.9 (<1.2); Partial Thromboplastin Time 23.7 sec (22.0-30.0); Prothrombin Time 10.2 sec (10.0-12.5)
--- NOTE | 2024-11-19 12:14 | XR ---
EXAMINATION TYPE: XR chest 2V DATE OF EXAM: 11/19/2024 12:06 PM COMPARISON: Chest x-ray December 04, 2022 CLINICAL INDICATION: Female, 54 years old with history of Chest Pain, TECHNIQUE: Frontal and lateral views of the chest are obtained. FINDINGS: There is no focal air space opacity, pleural effusion, or pneumothorax seen. The cardiac silhouette size is stable and within normal limits. Multilevel spurring in thoracic spine is redemons trated. IMPRESSION: No acute process. [facility], , 11/19/2024 12:12 PM
[2024-11-19 12:16] LABS: ALT 68 U/L (4-34); AST 62 U/L (14-36); African American GFR (CKD) >90 (>60 ml/min/1.73 sqM); Albumin 4.7 g/dL (3.5-5.0); Alkaline Phosphatase 72 U/L (38-126); Anion Gap 11 mmol/L; Blood Urea Nitrogen 10 mg/dL (7-17); Carbon Dioxide 28 mmol/L (22-30); Chloride 99 mmol/L (98-107); Glucose 103 mg/dL (74-99); Lipase 58 U/L (23-300); Magnesium 1.8 mg/dL (1.6-2.3); Non-African American GFR(CKD) >90 (>60 ml/min/1.73 sqM); Potassium 4.3 mmol/L (3.5-5.1); Sodium 138 mmol/L (137-145); Total Bilirubin 1.7 mg/dL (0.2-1.3)
[2024-11-19 13:18] VITALS: BP 142/98; PULSE 77; TEMP 98.1
== END 2024-11-19 13:18 | disposition home or self-care (01) ==
LOC: EC 11:02
DX: F10.239 Alcohol dependence with withdrawal, unspecified (principal); Z87.891 Personal history of nicotine dependence; Z88.2 Allergy status to sulfonamides; Z88.8 Allergy status to other drugs, medicaments and biological substances
CPT/HCPCS: 99285 ×2; 96374 ×2; 36415; 93005; 80053; 83690; 83735; 84484; 85025; 85610; 85730; 71046; J2060

== ENCOUNTER → 2025-06-02 | Outpatient (CLI) | payer OTHER ==
--- NOTE | 2025-06-02 13:25 | MM ---
Reason for Exam: Screening (asymptomatic). Last mammogram was performed 7 year(s) and 6 month(s) ago. Patient History: Menarche at age 13. First Full-Term at age 28. Hysterectomy at age 47. 12/13/2017, Benign Core Biopsy on the left side. Risk Values: Kelle 5 year model risk: 1.6%. NCI Lifetime model risk: 12.0%. Prior Study Comparison: 12/09/2017 Bilateral Screening Mammogram, [facility]. 12/11/2017 Left Diagnostic Mammogram, [facility]. 12/13/2017 Left Diagnostic Mammogram, [facility]. Tissue Density: There are scattered areas of fibroglandular density. Findings: Analyzed By CAD. Left breast biopsy clip. Right breast: There is no suspicious group of microcalcifications or new suspicious mass. Left breast: There is no suspicious group of microcalcifications or new suspicious mass. Overall Assessment: Negative, BI-RAD 1 Management: Screening Mammogram of both breasts in [address] [facility] will attempt to contact patient to return for supplemental views and ultrasound if indicated. Patient should continue monthly self-breast exams. A clinical breast exam by your physician is recommended on an annual basis. This exam should not preclude additional follow-up of suspicious palpable abnormalities. Note on Kelle scores and lifetime risk: 1. A Kelle score greater than 3% is considered moderate risk. If this is the case, consider specialist referral to assess eligibility for a risk reducing agent. 2. If overall lifetime risk for the development of breast cancer is 20% or higher, the patient may qualify for future screening with alternating mammogram and breast MRI. [facility], , 06/02/2025 1:21 PM. Electronically signed and approved by: Tapan Alcala DO
== END | disposition home or self-care (01) ==
LOC: RADMAMWWP 11:32
PROVIDERS: ATTEND Family Medicine
DX: Z12.31 Encounter for screening mammogram for malignant neoplasm of breast (principal); R92.323 Mammographic fibroglandular density, bilateral breasts
CPT/HCPCS: 77063; 77067

== ENCOUNTER → 2025-06-04 | Outpatient (CLI) | payer OTHER ==
--- NOTE | 2025-06-04 15:53 | US ---
EXAMINATION TYPE: US groin RT DATE OF EXAM: 06/04/2025 COMPARISON: NONE CLINICAL INDICATION: Female, 55 years old with history of R10.2 PELVIC PAIN; TECHNIQUE: Grayscale with or without color Doppler imaging of the area of hernia concern. Real-time scanning was performed by the nuclear fuel enrichment technician utilizing Valsalva and additional dynamic maneuve rs to assess for hernia. FINDINGS: Assess for hernia at location of: Right Groin ? Herniated area vs other etiology at patients area of concern. No movement with valsalva. IMPRESSION: 1. There is an isoechoic area along the inguinal canal. No peristalsis is identified. Small inguinal hernia could be considered without loops of bowel. [facility], , 06/04/2025 3:50 PM
== END | disposition home or self-care (01) ==
LOC: RADUSWWP 15:15
PROVIDERS: ATTEND Family Medicine
DX: K40.90 Unilateral inguinal hernia, without obstruction or gangrene, not specified as recurrent (principal)